=== PATIENT | male | born 1965 | race Hispanic/Latino ===

== ENCOUNTER 2018-05-27 17:34 | Inpatient (IN) | payer BC ==
[2018-05-27] MEDS ORDERED: Azithromycin 500 MG in Sodium Chloride 0.9% 250 ML IVPB STA (20:12)
[2018-05-27] MEDS ORDERED: Sodium Chloride 0.9% 1,000 ML IV STA (20:12)
[2018-05-27] MEDS ORDERED: Sodium Chloride 0.9% 1,000 ML ONE (20:19)
--- NOTE | 2018-05-27 20:21 | C.PDOC ---
History Of Present Illness 52 y/o male presents to the ER for evaluation s/p urgent care visit in which he was diagnosed with pneumonia. His PCP, Dr. Gibbons, advised that he be admitted. The patient reports experiencing SOB and coughing and pain over the L thoracic area especially with cough or deep breath. He denies having an associated fever , trauma, vomiting, chest pain. Patient notes he has not been eating well due to this pain. Also notes he has hemorrhoids which cause him to have bleeding at times. Time Seen by Provider: 05/27/18 20:07 Chief Complaint (Nursing): Medical Clearance History Per: Patient History/Exam Limitations: no limitations Onset/Duration Of Symptoms: Days, Waxing/Waning Reports Recently: Treated By A Physician (at urgent care) Recent travel outside of the [place]: No Past Medical History Reviewed: Historical Data, Nursing Documentation, Vital Signs Vital Signs: Last Vital Signs Temp 98.3 F 05/27/18 20:53 Pulse 97 H 05/27/18 20:53 Resp 18 05/27/18 20:53 BP 139/89 05/27/18 20:53 Pulse Ox 95 05/27/18 20:53 - Medical History PMH: Hypercholesterolemia Surgical History: No Surg Hx Family History: States: Unknown Family Hx - Social History Hx Alcohol Use: No Hx Substance Use: No - Immunization History Hx Tetanus Toxoid Vaccination: No Hx Influenza Vaccination: Yes Hx Pneumococcal Vaccination: No Review Of Systems Except As Marked, All Systems Reviewed And Found Negative. Constitutional: Negative for: Fever Cardiovascular: Negative for: Chest Pain Respiratory: Positive for: Cough, Shortness of Breath Physical Exam - Physical Exam Additional Physical Exam Comments: Constitutional: No acute distress. Head: Normocephalic. Atraumatic. Eyes: PERRL. ENT: Moist mucous membranes. Neck: Supple. Cardiovascular: Regular rate. Radial pulse 2+ bilaterally. Chest: No tenderness. Respiratory: Decreased breath sounds at left base. GI: Soft. Nontender. Nondistended. Rectal: Hemorrhoids, nonbleeding. Guaiac negative. Back: No CVA tenderness. Musculoskeletal: No tenderness or swelling of extremities. Skin: No rash. Neurologic: Alert, no focal deficit. ED Course And Treatment - Laboratory Results Result Diagrams: 05/27/18 20:19 05/27/18 20:19 O2 Sat by Pulse Oximetry: 98 (RA) Pulse Ox Interpretation: Normal Medical Decision Making Medical Decision Making: Impresison: 52 y/o male with pneumonia Plan: --EKG --CMP --Magnesium Stat --Phosphorous Stat --CBC --Blood Culture --Chest X-Ray --Toradol 30 mg IV -- Rocephin 1 gm --Zithromax 500mg --IV Fluids EKG: NSR 96 bpm, no ST/T wave changes. CXR shows opacitification of L lower lung. Dr. Villeda accepts patient to hospitalist service, recommends CT Chest at this time. Disposition - Disposition Disposition: HOSPITALIZED Disposition Time: 22:50 Condition: GUARDED Forms: [employer] (Spanish) - POA Core Measure Indicators: Pneumonia - Clinical Impression Clinical Impression: Pneumonia, Anemia, Hyponatremia - PA / DATA STEWARD / Resident Statement MD/DO has reviewed & agrees with the documentation as recorded. - Scribe Statement The provider has reviewed the documentation as recorded by the Scribe (Cheyenne Gayle) Provider Attestation: All medical record entries made by the Scribe were at my direction and personally dictated by me. I have reviewed the chart and agree that the record accurately reflects my personal performance of the history, physical exam, medical decision making, and the department course for this patient. I have also personally directed, reviewed, and agree with the discharge instructions and disposition.
[2018-05-27 20:24] LABS: BASO % 0.3 % (0.0-2.0); EOS % 0.1 % (0.0-4.0); LYMPH # 0.6 K/uL (1.0-4.3); LYMPH % 4.2 % (20.0-40.0); MEAN CORPUSCULAR HEMOGLOBIN 24.9 pg (27.0-31.0); MEAN PLATELET VOLUME 6.4 fL (7.2-11.7); MONO # 1.3 K/uL (0.0-0.8); MONO % 8.5 % (0.0-10.0); NEUT % 86.9 % (50.0-75.0); NRBC % 0.1 % (0.0-2.0); RBC 3.26 Mil/uL (4.40-5.90); RED CELL DISTRIBUTION WIDTH 17.8 % (11.5-14.5)
[2018-05-27 20:37] LABS: HEMOGLOBIN 8.1 g/dL (12.0-18.0); MEAN CELL VOLUME 77.9 fL (80.0-94.0); PLATELET COUNT 562 K/uL (130-400)
[2018-05-27 20:57] LABS: ANISOCYTOSIS SLIGHT; BANDS 1 % (0-2); EOSINOPHIL 1 % (0-4); HYPOCHROMIC SLIGHT; LYMPHOCYTE 4 % (20-40); MONOCYTE 6 % (0-10); NEUTROPHIL 88 % (50-75); PLATELET ESTIMATE INCREASED (NORMAL); POIKILOCYTOSIS SLIGHT; TOTAL CELLS COUNTED 100
[2018-05-27 20:58] LABS: LARGE PLATELETS PRESENT; MICROCYTOSIS SLIGHT; TARGET CELLS SLIGHT; TEARDROP CELLS SLIGHT
[2018-05-27 22:11] LABS: BLOOD UREA NITROGEN 15 mg/dL (9-20); GFR AFRICAN-AMERICAN > 60; GFR NON-AFRICAN AMERICAN > 60
[2018-05-27 22:12] LABS: ALB/GLOB RATIO 0.8 (1.0-2.1); ALBUMIN 2.7 g/dL (3.5-5.0); ALT/SGPT 47 U/L (21-72); AST/SGOT 45 U/L (17-59); CALCIUM 8.4 mg/dl (8.6-10.4)
--- NOTE | 2018-05-27 22:39 | CP.PCM.HP ---
<Lizzette HawkinsMaria Isabel - Last Filed: 05/28/18 00:10> History of Present Illness - History of Present Illness History of Present Illness: CC: cough HPI: Patient is a 52 y/o M with PMHx of HLD, hypothyroidism, and bipolar disorder who presents today after being told to come to the ER by urgent care for a pleural effusion of the left lung. Patient has been visiting family in [place] and about 1 week ago developed a cough with clear sputum and nasal congestion which he attributed to environmental allergies. Patient had a coughing fit last week during which he felt he hurt his left rib. Patient also admits to diarrhea once daily for the past 4 days. Patient denies any blood in the stool. Patient also complains of 2 weeks of epigastric fullness and pressure. Patient has been eating less due to dental work he is getting. Patient denies any weight loss. Patient decided to go to urgent care today after driving back from [place] (on 05/25 and 05/26) to make sure he did not fracture his rib from his coughing fit last week. In urgent care patient told he had a pleural effusion and to come to the ER. PMD: Dr. Gibbons Allergies: NKDA, environmental Surg: denies Famhx: Dad: HTN, Mom: bladder CA Social: stopped smoking cigarettes 2 years ago (hx of 30 pack years), stopped drinking alcohol 6 years ago (hx of 4 years of alcoholism), stopped using xanax and ambien 6 years ago (hx of abuse) lives alone Present on Admission - Present on Admission Any Indicators Present on Admission: No History of DVT/PE: No History of Uncontrolled Diabetes: No Urinary Catheter: No Decubitus Ulcer Present: No Review of Systems - Constitutional Constitutional: absent: Chills, Fever - EENT Eyes: absent: Blurred Vision - Cardiovascular Cardiovascular: Dyspnea. absent: Chest Pain, Palpitations, Pedal Edema Additional comments: left sided rib pain - Respiratory Respiratory: Cough, Dyspnea - Gastrointestinal Gastrointestinal: Abdominal Pain, Bloating, Diarrhea. absent: Constipation, Hematochezia, Nausea, Vomiting - Genitourinary Genitourinary: absent: Change in Urinary Stream, Difficulty Urinating, Hematuria - Musculoskeletal Musculoskeletal: absent: Numbness, Tingling - Integumentary Integumentary: absent: Rash Past Patient History - Past Social History Smoking Status: Never Smoked - CARDIAC Hx Hypercholesterolemia: Yes - PSYCHIATRIC Hx Substance Use: No - SURGICAL HISTORY Hx Surgeries: No - ANESTHESIA Hx Anesthesia: No Meds Allergies/Adverse Reactions: Allergies Allergy/AdvReac Type Severity Reaction Status Date / Time lentils Allergy Verified 05/27/18 18:02 peanut Allergy Verified 05/27/18 18:02 peas Allergy Verified 05/27/18 18:02 soybean Allergy Verified 05/27/18 18:02 [place] Allergy Uncoded 05/27/18 18:02 Physical Exam - Constitutional Appears: Non-toxic, No Acute Distress - Head Exam Head Exam: ATRAUMATIC, NORMAL INSPECTION, NORMOCEPHALIC - Eye Exam Eye Exam: EOMI, Normal appearance - ENT Exam ENT Exam: Mucous Membranes Moist - Neck Exam Neck exam: Negative for: Tenderness - Respiratory Exam Respiratory Exam: Decreased Breath Sounds (left lung dueñas), NORMAL BREATHING PATTERN - Cardiovascular Exam Cardiovascular Exam: Tachycardia, REGULAR RHYTHM, +S1, +S2 - GI/Abdominal Exam GI & Abdominal Exam: Normal Bowel Sounds, Soft, Tenderness (mild epigastric tenderness). absent: Firm, Guarding - Extremities Exam Extremities exam: Positive for: normal inspection. Negative for: pedal edema, tenderness - Back Exam Back exam: NORMAL INSPECTION - Neurological Exam Neurological exam: Alert, Oriented x3 - Psychiatric Exam Psychiatric exam: Normal Affect, Normal Mood - Skin Skin Exam: Intact, Normal Color, Warm Results - Vital Signs Recent Vital Signs: Last Vital Signs Temp 98.3 F 05/27/18 20:53 Pulse 97 H 05/27/18 20:53 Resp 18 05/27/18 20:53 BP 139/89 05/27/18 20:53 Pulse Ox 95 05/27/18 20:53 - Labs Result Diagrams: 05/27/18 20:19 05/27/18 20:19 Labs: Laboratory Results - last 24 hr 05/27/18 05/27/18 20:19 20:19 WBC 15.0 H RBC 3.26 L Hgb 8.1 L D Hct 25.4 L MCV 77.9 L D MCH 24.9 L MCHC 32.0 L RDW 17.8 H Plt Count 562 H D MPV 6.4 L Neut % (Auto) 86.9 H Lymph % (Auto) 4.2 L [place] % (Auto) 8.5 Eos % (Auto) 0.1 Baso % (Auto) 0.3 Neut # (Auto) 13.0 H Lymph # (Auto) 0.6 L [place] # (Auto) 1.3 H Eos # (Auto) 0.0 Baso # (Auto) 0.0 Neutrophils % (Manual) 88 H Band Neutrophils % 1 Lymphocytes % (Manual) 4 L Monocytes % (Manual) 6 Eosinophils % (Manual) 1 Platelet Estimate Increased H Large Platelets Present Hypochromasia (manual) Slight Poikilocytosis (manual Slight Anisocytosis (manual) Slight Microcytosis (manual) Slight Target Cells Slight Tear Drop Cells Slight Sodium 127 L Potassium 4.3 Chloride 95 L Carbon Dioxide 24 Anion Gap 12 BUN 15 Creatinine 1.0 Est GFR ( Amer) > 60 Est GFR (Non-Af Amer) > 60 Random Glucose 111 H Calcium 8.4 L Phosphorus 3.3 Magnesium 2.0 Total Bilirubin 0.3 AST 45 ALT 47 Alkaline Phosphatase 178 H Total Protein 5.9 L Albumin 2.7 L D Globulin 3.2 Albumin/Globulin Ratio 0.8 L Assessment & Plan - Assessment and Plan (Free Text) Assessment: Pneumonia with large left pleural effusion WBC: 15 azithromycin and ceftriaxone given in ED f/u blood culture f/u Chest CT IR consulted, Dr. Meyers, help appreciated meds: Azithromycin 500mg ivpb daily Ceftriaxone 1gm ivpb daily Anemia HgB 8.1, Hct 25.4 stool occult neg f/u iron studies Hyponatremia Na+ 127 1 L NS given in ED Continue NS at 100cc/hr HLD Fenofibrate 145mg po HS Niacin 1g po daily Lipitor 10mg po daily- NF, give Crestor 5mg po daily Hypothyroidism Synthroid 175mcg daily f/u TSH, free T4 Bipolar Disorder Gabapentin 600mg po TID, 1200mg po HS Seroquel 450mg po HS Lamictal 400mg po daily Hydroxazine 100mg HS (held due to increased QTc prolongation with azithromycin) Prophylaxis hold vte prophylaxis 2/2 anemia pepcid 20mg po daily <Rohit Villeda - Last Filed: 05/28/18 06:25> Results - Vital Signs Recent Vital Signs: Last Vital Signs Temp 98.7 F 05/28/18 01:22 Pulse 98 H 05/28/18 01:22 Resp 20 05/28/18 01:22 BP 142/87 05/28/18 01:22 Pulse Ox 98 05/28/18 01:22 - Labs Result Diagrams: 05/27/18 20:19 05/27/18 20:19 Labs: Laboratory Results - last 24 hr 05/27/18 05/27/18 05/27/18 20:19 20:19 22:41 WBC 15.0 H RBC 3.26 L Hgb 8.1 L D Hct 25.4 L MCV 77.9 L D MCH 24.9 L MCHC 32.0 L RDW 17.8 H Plt Count 562 H D MPV 6.4 L Neut % (Auto) 86.9 H Lymph % (Auto) 4.2 L [place] % (Auto) 8.5 Eos % (Auto) 0.1 Baso % (Auto) 0.3 Neut # (Auto) 13.0 H Lymph # (Auto) 0.6 L [place] # (Auto) 1.3 H Eos # (Auto) 0.0 Baso # (Auto) 0.0 Neutrophils % (Manual) 88 H Band Neutrophils % 1 Lymphocytes % (Manual) 4 L Monocytes % (Manual) 6 Eosinophils % (Manual) 1 Platelet Estimate Increased H Large Platelets Present Hypochromasia (manual) Slight Poikilocytosis (manual Slight Anisocytosis (manual) Slight Microcytosis (manual) Slight Target Cells Slight Tear Drop Cells Slight Sodium 127 L Potassium 4.3 Chloride 95 L Carbon Dioxide 24 Anion Gap 12 BUN 15 Creatinine 1.0 Est GFR ( Amer) > 60 Est GFR (Non-Af Amer) > 60 Random Glucose 111 H Calcium 8.4 L Phosphorus 3.3 Magnesium 2.0 Total Bilirubin 0.3 AST 45 ALT 47 Alkaline Phosphatase 178 H Total Protein 5.9 L Albumin 2.7 L D Globulin 3.2 Albumin/Globulin Ratio 0.8 L Stool Occult Blood Negative Assessment & Plan - Date & Time Date: 05/28/18 (I have seen and examined the patient. I agree with the findings and plan of care as documented by Dr. Hawkins. Patient with pneumonia with pleural effusion. Consult to pulm. Rocephin and azithromycin. Check sputum and blood cultures. Anemia. Not hypotensive. Check stool for OB. Iron studies. IVF NS for hyponatremia. Follow BMP in AM. Monitor for acute changes.) Time: 06:22 Attending/Attestation - Attestation I have personally seen and examined this patient.: Yes I have fully participated in the care of the patient.: Yes I have reviewed all pertinent clinical information: Yes
[2018-05-28] MEDS: Sodium Chloride 0.9% 1,000 ML IV SCH ×2 (00:28→10:01)
[2018-05-28] MEDS: Levothyroxine 175 MCG TAB PO SCH (06:48)
--- NOTE | 2018-05-28 07:45 | CP.PCM.PN ---
<PageTerritaina L - Last Filed: 05/28/18 16:57> Subjective - Date & Time of Evaluation Date of Evaluation: 05/28/18 Time of Evaluation: 07:38 - Subjective Subjective: Resident Progress Note for Hospitalist Service Patient examined at bedside. States that he is still experiencing shortness of breath in addition to back pain. States that he has been attempting to suppress his cough due to the pain that it causes. However, when he does cough he is producing clear yellowish sputum with no signs of blood. Denies headache, dizziness, chest pain, abdominal pain, changes in bowel movements, dysuria. Objective - Vital Signs/Intake and Output Vital Signs (last 24 hours): Temp Pulse Resp BP Pulse Ox 98.7 F 98 H 20 142/87 98 05/28/18 01:22 05/28/18 01:22 05/28/18 01:22 05/28/18 01:22 05/28/18 01:22 - Medications Medications: Current Medications Famotidine (Pepcid) 20 mg PO DAILY [facility] Fenofibrate (Tricor) 145 mg PO QPM [facility] Gabapentin (Neurontin) 600 mg PO TID [facility] Gabapentin (Neurontin) 1,200 mg PO [facility] Last Admin: 05/28/18 00:28 Dose: 1,200 mg Azithromycin 500 mg/ Sodium (Chloride) 250 mls @ 250 mls/hr IVPB DAILY [facility] PRN Reason: Protocol Ceftriaxone Sodium 1 gm/ (Sodium Chloride) 100 mls @ 100 mls/hr IVPB DAILY [facility] PRN Reason: Protocol Sodium Chloride (Sodium Chloride 0.9%) 1,000 mls @ 100 mls/hr IV .Q10H [facility] Last Admin: 05/28/18 00:28 Dose: 100 mls/hr Lamotrigine (Lamictal) 400 mg PO DAILY [facility] Levothyroxine Sodium (Synthroid) 175 mcg PO DAILY@0630 [facility] Last Admin: 05/28/18 06:48 Dose: 175 mcg Niacin (Niacin) 1,000 mg PO DAILY [facility] Pneumococcal Polyvalent Vaccine (Pneumovax 23 Vaccine) 0.5 ml IM .ONCE ONE Stop: 05/30/18 10:01 Quetiapine Fumarate (Seroquel) 450 mg PO HS [facility] Rosuvastatin Calcium (Crestor) 5 mg PO [facility] Last Admin: 08/14/18 00:28 Dose: 5 mg - Labs Labs: 05/27/18 20:19 05/27/18 20:19 - Constitutional Appears: Non-toxic, No Acute Distress - Head Exam Head Exam: ATRAUMATIC, NORMOCEPHALIC - Eye Exam Eye Exam: EOMI, Normal appearance - ENT Exam ENT Exam: Mucous Membranes Moist - Neck Exam Neck Exam: Normal Inspection - Respiratory Exam Respiratory Exam: Decreased Breath Sounds (left lung dueñas), NORMAL BREATHING PATTERN. absent: Rales, Rhonchi, Wheezes, Respiratory Distress - Cardiovascular Exam Cardiovascular Exam: REGULAR RHYTHM, +S1, +S2 - GI/Abdominal Exam GI & Abdominal Exam: Soft, Normal Bowel Sounds. absent: Firm, Rigid, Tenderness - Extremities Exam Extremities Exam: Normal Capillary Refill, Normal Inspection. absent: Tenderness - Back Exam Back Exam: NORMAL INSPECTION - Neurological Exam Neurological Exam: Alert, Awake, Oriented x3 - Psychiatric Exam Psychiatric exam: Normal Affect, Normal Mood - Skin Skin Exam: Dry, Intact, Pallor Assessment and Plan - Assessment and Plan (Free Text) Plan: Pneumonia with large left pleural effusion - Leukocytosis trending down - Azithromycin 500 mg IVPB daily - Rocephin 1 gm IVPB Q12H - f/u blood culture - Chest CT shows moderate to large left pleural effusion with localized effusion at the mid and upper portion of the left chest cavity compressing on the left lung. Foci of gas in mid and lower portion of left pleural effusion and possible abscess formation at left lower pleural space or less likely in left lung lower lobe as described above. Compressive atelectasis of left lung more prominent in left lower lobe. Small ground-glass opacities seen in right lung may represent lung edema or congestion. Splenomegaly. - IR consulted, Dr. Meyers. Appreciate recs. - Patient unable to go for thoracentesis due to INR 2.0. Will repeat labs tomorrow and followup. Anemia - Hgb 8.1, Hct 25.4 - FOBT negative - Iron <10, TIBC 266, % saturation 3.75, ferritin 130.0 - Retic count 0.9 - To obtain records from PMD Hyponatremia- resolved - Na+ 127 on admission. Na+ 137 today. - 1 L NS given in ED HLD - Fenofibrate 145mg po HS - Niacin 1g po daily - Crestor 5mg po daily Hypothyroidism - Synthroid 175mcg daily - TSH 0.75, T4 1.31 Bipolar Disorder - Gabapentin 600mg po TID, 1200mg po HS held - Seroquel 450mg po HS - Lamictal 400mg po daily - Hydroxazine 100mg HS (held due to increased QTc prolongation with azithromycin ) Prophylaxis - Hold vte prophylaxis 2/2 anemia - Pepcid 20mg po daily Kt Page PGY-1 <Dodie Montgomery V - Last Filed: 05/28/18 20:24> Objective - Vital Signs/Intake and Output Vital Signs (last 24 hours): Temp Pulse Resp BP Pulse Ox 98.1 F 96 H 20 133/84 97 05/28/18 16:00 05/28/18 16:00 05/28/18 16:00 05/28/18 16:00 05/28/18 16:00 Intake and Output: 05/28/18 05/29/18 18:59 06:59 Intake Total 250 Balance 250 - Medications Medications: Current Medications Albuterol/Ipratropium (Duoneb 3 Mg/0.5 Mg (3 Ml) Ud) 3 ml INH RQ4 [facility] Benztropine Mesylate (Cogentin) 2 mg PO HS ONE Stop: 05/28/18 22:01 Famotidine (Pepcid) 20 mg PO DAILY [facility] Last Admin: 05/28/18 10:00 Dose: Not Given Fenofibrate (Tricor) 145 mg PO QPM [facility] Gabapentin (Neurontin) 600 mg PO TID [facility] Last Admin: 05/28/18 11:00 Dose: Not Given Gabapentin (Neurontin) 1,200 mg PO HS [facility] Last Admin: 05/28/18 00:28 Dose: 1,200 mg Hydroxyzine HCl (Atarax) 100 mg PO HS [facility] Azithromycin 500 mg/ Sodium (Chloride) 250 mls @ 250 mls/hr IVPB DAILY [facility] PRN Reason: Protocol Last Admin: 05/28/18 12:57 Dose: 250 mls/hr Piperacillin Sod/Tazobactam Sod (Zosyn 3.375 Gm Iv Premix) 3.375 gm in 50 mls @ 100 mls/hr IVPB Q8H [facility] PRN Reason: Protocol Lamotrigine (Lamictal) 400 mg PO DAILY [facility] Last Admin: 05/28/18 11:00 Dose: Not Given Levothyroxine Sodium (Synthroid) 175 mcg PO DAILY@0630 [facility] Last Admin: 05/28/18 06:48 Dose: 175 mcg Montelukast Sodium (Singulair) 10 mg PO HS [facility] Niacin (Niacin) 1,000 mg PO DAILY [facility] Last Admin: 05/28/18 12:00 Dose: Not Given Bnebv-3-Epqg Ethyl Esters (Lovaza) 1 gm PO BID [facility] Quetiapine Fumarate (Seroquel Xr) 450 mg PO HS [facility] Rosuvastatin Calcium (Crestor) 5 mg PO [facility] Last Admin: 05/28/18 00:28 Dose: 5 mg - Labs Labs: 05/28/18 07:59 05/28/18 07:59 PT 22.4 SECONDS (9.7-12.2) H 05/28/18 07:59 INR 2.0 05/28/18 07:59 APTT 34 SECONDS (21-34) 05/28/18 07:59 Attending/Attestation - Attestation I have personally seen and examined this patient.: Yes I have fully participated in the care of the patient.: Yes I have reviewed all pertinent clinical information, including history, physical exam and plan: Yes Notes (Text): Patient seen, examined and case discussed with day-time resident. Patient seen this morning with resident. Patient reports for past 3 weeks he has been having shortness of breathe, associated sputum production. He has attempted mucinex but did not relieve his symptomst. Patient has not tried antibiotics. Patient is a former smoker. 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 I did discussed with him his CT findings and concern for many things including malignancy. Patient moved to telemetry in light of opacification of left lung on CT and for telemetry monitoring. Thoracentesis cancelled today secondary to elevated INR: 2.0. Patient does not have a bleeding history. Patient order for Abdominal US to evaluate liver. Patient ordered for Vitamin K 10mg sub x1 and 1 unit of FFP in preparation for re-attempt of thoracentesis tomorrow with IR. Patient is on antibiotics to cover for community acquired pneumonia. Patient reports chronic history of anemia, about 2 years ago, and reports has had colonoscopy recently. Patient reports significant psychiatric history of bipolar disorder. I spoke with the patient obtain consent to give FFP, risks and ebenfits described Assessment/Plan 1) Pneumonia with large left pleural effusion Assessment/Plan * monitor on telemetry * IR consult for thoracentesis * Pulmonary (Dr. Jaquez) on consult-->help appreciated * CT Chest (05/28/18): moderate to large left pleural effusion with localized effusion at mid and upper portion of the left chest cavity compressing on the left lung. Foci of gas in the mid and lower portion of the left pleural effusion and possible abscess formation at th left lower pleural space or less likely in the left lung lower lobe. Compressive atelectasis of the left lung more prominent in the left lung lower lobe. Small ground glass opacities in the right lung may represent lung edema or congestion. Splenomegaly. * Thoracentesis cancelled secondary to elevated INR * Ordered for Vitamin K 10mg subq X1 * FFP 1 unit tonight * Reattempt tomorrow 05/29/18 * negative legionella, pending mycoplasma pneumonia IgM * Azithromycin 500mg IVPB daily (active since 05/27/18) * Zosyn 3.375 IVPB Q8H (active since 05/28/18) * Rocephin dc switched for Zosyn * NPO for thoracentesis * IV fluids d/c * Duonebs PRN shortness of breathe * Advair 500/50 1 puff inhaled Q12H (Patient takes Symbicort as outpatient not available on hospital formulary) 2) Chronic Anemia Assessment/Plan * HgB 8.1 * Reticulocyte index: 0.37-->hypoproliferation of reticulocytes * Iron: <10 * TIBC: 266 * Ferritin: 130 * pending B12 and folate * Patient reports he has completed colonoscopy in the past * Patient reports has not had bone marrow biopsy or any further workup * Stool occult blood Negative 3) Hyponatremia Assessment/Plan * d/c IV fluids * sodium normalized 4) Lipid Disorder Assessment/Plan * Fenofibrate 145mg po HS * Niacin 1g po daily * Lipid panel in the AM 5) Hypothyroidism Assessment/Plan * Synthroid 175mcg PO qAM * within normal 6) History of Bipolar Disorder * Reviewed medications with patient: * Patient sparingly takes Gabapentin 100mg PO Q4 * Seroquel XR 450mg po HS * Lamictal 400mg po daily * Hydroxazine 100mg HS (held due to increased QTc prolongation with azithromycin) 7) Asthma Assessment/Plan * Patient takes Symbicort as outpatient * Patient has not formally seen a lung doctor * Patient reports significant smoking history 8) Elevated INR Assessment/Plan * Vitamin K 10mg subq X1, FFP X1 unit tonight; f/u INR tomorrow * Abdominal US check liver given elevated INR 9) Smoking History Assessment/Plan * Former smoker * Counselled cessation * Nicoderm patch daily 10) Leukocytosis Assessment/Plan * Blood culture (05/27/18): f/u * Sputum culture (05/27/18) 11) Prophylaxis * Chemical anticoagulation held secondary to thoracentesis and elevated INR * Protonix 40mg PO daily Disposition: To be NPO after midnight for re-attempt thoracentesis tomorrow; fluid studies are orderered. Patient is on IV abx to cover for pneumonia. Pending thoracentesis tomorrow.
[2018-05-28 08:15] LABS: BASO % 0.3 % (0.0-2.0); HEMOGLOBIN 8.3 g/dL (12.0-18.0); LYMPH # 0.6 K/uL (1.0-4.3); MEAN CELL VOLUME 77.4 fL (80.0-94.0); MEAN CORPUSCULAR HEMOGLOBIN 24.8 pg (27.0-31.0); MEAN PLATELET VOLUME 6.8 fL (7.2-11.7); MONO # 0.9 K/uL (0.0-0.8); MONO % 6.7 % (0.0-10.0); NEUT # 12.3 K/uL (1.8-7.0); PLATELET COUNT 656 K/uL (130-400); RBC 3.37 Mil/uL (4.40-5.90); RED CELL DISTRIBUTION WIDTH 18.2 % (11.5-14.5); WHITE BLOOD COUNT 13.8 K/uL (4.8-10.8)
[2018-05-28 08:32] LABS: IRON < 10 ug/dL (49-181)
[2018-05-28 08:35] LABS: ALB/GLOB RATIO 0.9 (1.0-2.1); ALBUMIN 2.8 g/dL (3.5-5.0); ALT/SGPT 64 U/L (21-72); AST/SGOT 70 U/L (17-59); BLOOD UREA NITROGEN 10 mg/dL (9-20); CALCIUM 8.3 mg/dl (8.6-10.4); GFR AFRICAN-AMERICAN > 60; GFR NON-AFRICAN AMERICAN > 60; PROTHROMBIN TIME 22.4 SECONDS (9.7-12.2)
[2018-05-28 08:41] LABS: TOTAL IRON BINDING CAPACITY 266 ug/dL (250-450)
[2018-05-28 08:43] LABS: % IRON SATURATION 3.75 (20-55)
[2018-05-28 09:26] LABS: ANISOCYTOSIS SLIGHT; LYMPHOCYTE 3 % (20-40); MONOCYTE 11 % (0-10); NEUTROPHIL 86 % (50-75); PLATELET ESTIMATE INCREASED (NORMAL); POIKILOCYTOSIS SLIGHT; TOTAL CELLS COUNTED 100
[2018-05-28 09:27] LABS: HYPOCHROMIC SLIGHT; OVALOCYTES SLIGHT
[2018-05-28 09:28] LABS: LARGE PLATELETS PRESENT; TEARDROP CELLS SLIGHT; TOXIC GRANULATION PRESENT
[2018-05-28] MEDS ORDERED: Phytonadione 10 mg/ml Inj (Adult) SC STA ×2 (09:30→14:19)
--- NOTE | 2018-05-28 10:24 | RAD ---
Chest x-ray two views History: Shortness of breath. Comparison: None available. Findings: Large loculated left pleural effusion with prominent opacification in the left mid to lower lung zone. Correlation with chest CT may be helpful if clinically indicated. Heart size within normal limits. Right hilar prominence. Gas distention of bowel in the upper abdomen. Impression: Large loculated left pleural effusion with prominent opacification in the left mid to lower lung zone. Correlation with chest CT may be helpful if clinically indicated. Heart size within normal limits. Right hilar prominence. Gas distention of bowel in the upper abdomen.
--- NOTE | 2018-05-28 12:00 | CARD ---
APPROVED REPORT Date of service: 05/27/2018 EKG Measurement Heart [id number] <Conclusion> Normal sinus rhythm Normal ECG
[2018-05-28 12:42] LABS: LEGIONELLA AG URINE NEGATIVE (NEGATIVE)
[2018-05-28] MEDS: Azithromycin 500 MG in Sodium Chloride 0.9% 250 ML IVPB SCH (12:57)
--- NOTE | 2018-05-28 13:11 | US ---
Abdominal ultrasound History: Transaminitis. Comparison: None available. Technique: Real-time sonography was performed through the abdomen. Findings: Liver: 19.4 centimeters in length. Increased echogenicity of the hepatic parenchymal cortex suggestive for fatty infiltration versus hepatic parenchymal disease. Clinical correlation. Gallbladder: No calculi or sludge. Normal wall thickness of 2.8 millimeters. Negative sonographic Wilson's sign. Common bile duct measures 3.9 millimeters, within normal limits. Limited visualization of the pancreas. Spleen is prominent measuring 13.1 centimeters in length. Limited visualization of the aorta and IVC. Right kidney: 12.6 x 4.2 x 5.3 centimeters. No calculi or hydronephrosis. Left kidney: 13.3 x 5.7 x 5.6 centimeters. No calculi or hydronephrosis. Impression: Increased echogenicity of the hepatic parenchymal cortex suggestive for fatty infiltration versus hepatic parenchymal disease. Clinical correlation. Prominent liver and spleen as described above. Limited visualization of the pancreas.
--- NOTE | 2018-05-28 13:15 | CT ---
Date of service: 05/27/2018 PROCEDURE: CT Chest without contrast HISTORY: lung opacification COMPARISON: No prior similar study available for comparison. TECHNIQUE: Contiguous axial images were obtained through the chest without intravenous contrast enhancement. Sagittal and coronal reconstructions were performed. Radiation dose (DLP): 349.73 mGy-cm. This CT exam was performed using one or more of the following dose reduction techniques: Automated exposure control, adjustment of the mA and/or kV according to patient size, and/or use of iterative reconstruction technique. FINDINGS: LUNGS: There is a compressive atelectasis of the left lung especially the lower lobe. There are foci of ground-glass opacity seen at the right lung upper lobe may represent mild focal pulmonary congestion or edema. There is possible pulmonary abscess or pleural empyema with abscess formation at the left lung lower lobe demonstrate thick dobbins and surrounding with pleural effusion with central gas collection, measures approximately 6.8 centimeter in the transverse diameter and 4.8 in the AP diameter. MEDIASTINUM: Unremarkable thoracic aorta. No aneurysm. Normal sized heart. Main pulmonary artery unremarkable. No vascular congestion. Mildly enlarged left hilar lymph nodes noted. PLEURA: There is moderate to large left pleural effusion. Localized pleural effusion at the mid and upper portion of the left chest is also noted. There are foci of air seen at the lower portion of the left chest pleural cavity and possible either lung or pleural abscess and empyema. BONES: No fracture. No destructive lesion. UPPER ABDOMEN: The scans through the upper abdomen demonstrate splenomegaly. OTHER FINDINGS: None. IMPRESSION: Moderate to large left pleural effusion with localized effusion at the mid and upper portion of the left chest cavity compressing on the left lung. Foci of gas in the mid and lower portion of the left pleural effusion and possible abscess formation at the left lower pleural space or less likely in the left lung lower lobe as described above. Compressive atelectasis of the left lung more prominent in the left lower lobe. Small ground-glass opacities seen in the right lung may represent lung edema or congestion. Splenomegaly. Preliminary report was submitted by [facility].
--- NOTE | 2018-05-28 17:51 | CP.PCM.CON ---
History of Present Illness - History of Present Illness History of Present Illness: Reason for consultation: complaining of cough and weight loss 52-year-old male with history of hypothyroidism and bipolar disorder presented to emergency room complaining of cough and left-sided pleural effusion. Patient states that while visiting [facility] last month he developed cough, nasal congestion, diarrhea. CAT scan of the chest consistent with loculated pleural effusion And cabinetry mass Allergies: NKDA, environmental Surg: denies Famhx: Dad: HTN, Mom: bladder CA Social: stopped smoking cigarettes 2 years ago (hx of 30 pack years), stopped drinking alcohol 6 years ago (hx of 4 years of alcoholism), stopped using xanax and ambien 6 years ago (hx of abuse) lives alone Review of Systems - Review of Systems All systems: reviewed and no additional remarkable complaints except ( complaining of cough and weight loss) Past Patient History - Past Medical History & Family History Past Medical History?: Yes - Past Social History Smoking Status: Former Smoker - CARDIAC Hx Cardiac Disorders: Yes Hx Hypercholesterolemia: Yes - PULMONARY Hx Respiratory Disorders: No - NEUROLOGICAL Hx Neurological Disorder: No - HEENT Hx HEENT Problems: No - RENAL Hx Chronic Kidney Disease: No - ENDOCRINE/METABOLIC Hx Endocrine Disorders: Yes Hx Hypothyroidism: Yes - HEMATOLOGICAL/ONCOLOGICAL Hx Blood Disorders: No - INTEGUMENTARY Hx Dermatological Problems: No - MUSCULOSKELETAL/RHEUMATOLOGICAL Hx Falls: No - GASTROINTESTINAL Hx Gastrointestinal Disorders: No - GENITOURINARY/GYNECOLOGICAL Hx Genitourinary Disorders: No - PSYCHIATRIC Hx Substance Use: No - SURGICAL HISTORY Hx Surgeries: No - ANESTHESIA Hx Anesthesia: No Hx Anesthesia Reactions: No Hx Malignant Hyperthermia: No Has any member of the family had a problem w/ anesthesia?: No Meds Allergies/Adverse Reactions: Allergies Allergy/AdvReac Type Severity Reaction Status Date / Time lentils Allergy Verified 05/27/18 18:02 peanut Allergy Verified 05/27/18 18:02 peas Allergy Verified 05/27/18 18:02 soybean Allergy Verified 05/27/18 18:02 [place] Allergy Uncoded 05/27/18 18:02 - Medications Medications: Current Medications Albuterol/Ipratropium (Duoneb 3 Mg/0.5 Mg (3 Ml) Ud) 3 ml INH RQ4 [facility] Benztropine Mesylate (Cogentin) 2 mg PO HS ONE Stop: 05/28/18 22:01 Famotidine (Pepcid) 20 mg PO DAILY [facility] Last Admin: 05/28/18 10:00 Dose: Not Given Fenofibrate (Tricor) 145 mg PO QPM [facility] Gabapentin (Neurontin) 600 mg PO TID [facility] Last Admin: 05/28/18 11:00 Dose: Not Given Gabapentin (Neurontin) 1,200 mg PO HS [facility] Last Admin: 05/28/18 00:28 Dose: 1,200 mg Hydroxyzine HCl (Atarax) 100 mg PO HS [facility] Azithromycin 500 mg/ Sodium (Chloride) 250 mls @ 250 mls/hr IVPB DAILY [facility] PRN Reason: Protocol Last Admin: 05/28/18 12:57 Dose: 250 mls/hr Ceftriaxone Sodium 1 gm/ (Sodium Chloride) 100 mls @ 100 mls/hr IVPB Q12H [facility] PRN Reason: Protocol Lamotrigine (Lamictal) 400 mg PO DAILY [facility] Last Admin: 05/28/18 11:00 Dose: Not Given Levothyroxine Sodium (Synthroid) 175 mcg PO DAILY@0630 [facility] Last Admin: 05/28/18 06:48 Dose: 175 mcg Montelukast Sodium (Singulair) 10 mg PO HS [facility] Niacin (Niacin) 1,000 mg PO DAILY [facility] Last Admin: 05/28/18 12:00 Dose: Not Given [id number]-3-Hzkx Ethyl Esters (Lovaza) 1 gm PO BID [facility] Quetiapine Fumarate (Seroquel Xr) 450 mg PO HS [facility] Rosuvastatin Calcium (Crestor) 5 mg PO HS [facility] Last Admin: 05/28/18 00:28 Dose: 5 mg Fluticasone/Salmeterol (Advair Diskus 500/50) 1 puff INH RQ12 [facility] Physical Exam - Head Exam Head Exam: ATRAUMATIC, NORMOCEPHALIC - ENT Exam ENT Exam: Mucous Membranes Moist - Respiratory Exam Respiratory Exam: Decreased Breath Sounds Results - Vital Signs Recent Vital Signs: Last Vital Signs Temp 98.1 F 05/28/18 16:00 Pulse 96 H 05/28/18 16:00 Resp 20 05/28/18 16:00 BP 133/84 05/28/18 16:00 Pulse Ox 97 05/28/18 16:00 - Labs Result Diagrams: 05/29/18 08:20 05/29/18 08:20 Labs: Laboratory Results - last 24 hr 08/13/18 08/13/18 08/13/18 20:19 20:19 22:41 WBC 15.0 H RBC 3.26 L Hgb 8.1 L D Hct 25.4 L MCV 77.9 L D MCH 24.9 L MCHC 32.0 L RDW 17.8 H Plt Count 562 H D MPV 6.4 L Neut % (Auto) 86.9 H Lymph % (Auto) 4.2 L [place] % (Auto) 8.5 Eos % (Auto) 0.1 Baso % (Auto) 0.3 Neut # (Auto) 13.0 H Lymph # (Auto) 0.6 L [place] # (Auto) 1.3 H Eos # (Auto) 0.0 Baso # (Auto) 0.0 Neutrophils % (Manual) 88 H Band Neutrophils % 1 Lymphocytes % (Manual) 4 L Monocytes % (Manual) 6 Eosinophils % (Manual) 1 Toxic Granulation Platelet Estimate Increased H Large Platelets Present Hypochromasia (manual) Slight Poikilocytosis (manual Slight Anisocytosis (manual) Slight Microcytosis (manual) Slight Target Cells Slight Tear Drop Cells Slight Ovalocytes Retic Count PT INR APTT Sodium 127 L Potassium 4.3 Chloride 95 L Carbon Dioxide 24 Anion Gap 12 BUN 15 Creatinine 1.0 Est GFR ( Amer) > 60 Est GFR (Non-Af Amer) > 60 Random Glucose 111 H Calcium 8.4 L Phosphorus 3.3 Magnesium 2.0 Iron TIBC % Saturation Ferritin Total Bilirubin 0.3 AST 45 ALT 47 Alkaline Phosphatase 178 H Total Protein 5.9 L Albumin 2.7 L D Globulin 3.2 Albumin/Globulin Ratio 0.8 L Free T4 TSH 3rd Generation Stool Occult Blood Negative Ur L.pneumophila Ag 05/28/18 05/28/18 05/28/18 07:59 07:59 07:59 WBC 13.8 H RBC 3.37 L Hgb 8.3 L Hct 26.1 L MCV 77.4 L MCH 24.8 L MCHC 32.0 L RDW 18.2 H Plt Count 656 H MPV 6.8 L Neut % (Auto) 89.0 H Lymph % (Auto) 4.0 L [place] % (Auto) 6.7 Eos % (Auto) 0.0 Baso % (Auto) 0.3 Neut # (Auto) 12.3 H Lymph # (Auto) 0.6 L [place] # (Auto) 0.9 H Eos # (Auto) 0.0 Baso # (Auto) 0.0 Neutrophils % (Manual) 86 H Band Neutrophils % Lymphocytes % (Manual) 3 L Monocytes % (Manual) 11 H Eosinophils % (Manual) Toxic Granulation Present Platelet Estimate Increased H Large Platelets Present Hypochromasia (manual) Slight Poikilocytosis (manual Slight Anisocytosis (manual) Slight Microcytosis (manual) Target Cells Tear Drop Cells Slight Ovalocytes Slight Retic Count 0.9 PT INR APTT Sodium 137 Potassium 4.0 Chloride 101 Carbon Dioxide 25 Anion Gap 15 BUN 10 Creatinine 0.7 L Est GFR ( Amer) > 60 Est GFR (Non-Af Amer) > 60 Random Glucose 112 H Calcium 8.3 L Phosphorus 2.6 Magnesium 1.9 Iron TIBC % Saturation Ferritin 130.0 Total Bilirubin 0.3 AST 70 H D ALT 64 Alkaline Phosphatase 159 H Total Protein 6.1 L Albumin 2.8 L Globulin 3.3 Albumin/Globulin Ratio 0.9 L Free T4 TSH 3rd Generation 0.75 Stool Occult Blood Ur L.pneumophila Ag 05/28/18 05/28/18 05/28/18 07:59 07:59 07:59 WBC RBC Hgb Hct MCV MCH MCHC RDW Plt Count MPV Neut % (Auto) Lymph % (Auto) [place] % (Auto) Eos % (Auto) Baso % (Auto) Neut # (Auto) Lymph # (Auto) [place] # (Auto) Eos # (Auto) Baso # (Auto) Neutrophils % (Manual) Band Neutrophils % Lymphocytes % (Manual) Monocytes % (Manual) Eosinophils % (Manual) Toxic Granulation Platelet Estimate Large Platelets Hypochromasia (manual) Poikilocytosis (manual Anisocytosis (manual) Microcytosis (manual) Target Cells Tear Drop Cells Ovalocytes Retic Count PT 22.4 H INR 2.0 APTT 34 Sodium Potassium Chloride Carbon Dioxide Anion Gap BUN Creatinine Est GFR ( Amer) Est GFR (Non-Af Amer) Random Glucose Calcium Phosphorus Magnesium Iron < 10 L TIBC 266 % Saturation 3.75 L Ferritin Total Bilirubin AST ALT Alkaline Phosphatase Total Protein Albumin Globulin Albumin/Globulin Ratio Free T4 1.31 TSH 3rd Generation Stool Occult Blood Ur L.pneumophila Ag 05/28/18 11:00 WBC RBC Hgb Hct MCV MCH MCHC RDW Plt Count MPV Neut % (Auto) Lymph % (Auto) [place] % (Auto) Eos % (Auto) Baso % (Auto) Neut # (Auto) Lymph # (Auto) [place] # (Auto) Eos # (Auto) Baso # (Auto) Neutrophils % (Manual) Band Neutrophils % Lymphocytes % (Manual) Monocytes % (Manual) Eosinophils % (Manual) Toxic Granulation Platelet Estimate Large Platelets Hypochromasia (manual) Poikilocytosis (manual Anisocytosis (manual) Microcytosis (manual) Target Cells Tear Drop Cells Ovalocytes Retic Count PT INR APTT Sodium Potassium Chloride Carbon Dioxide Anion Gap BUN Creatinine Est GFR ( Amer) Est GFR (Non-Af Amer) Random Glucose Calcium Phosphorus Magnesium Iron TIBC % Saturation Ferritin Total Bilirubin AST ALT Alkaline Phosphatase Total Protein Albumin Globulin Albumin/Globulin Ratio Free T4 TSH 3rd Generation Stool Occult Blood Ur L.pneumophila Ag Negative Assessment & Plan (1) Pleural effusion Status: Acute Comment: possible loculated pleural effusion that cavitary mass. thoracentesis. Thoracic consult. Continue antibiotics (2) Cavitary lesion of lung Status: Acute (3) Pneumonia Status: Acute
[2018-05-28] MEDS: Albuterol-Ipratrop 3 mg / 0.5 (3 ml) UD INH SCH (19:50)
[2018-05-28] MEDS ORDERED: Fluticasone-Salmeterol 500-50mcg Diskus INH SCH (20:00)
[2018-05-28] MEDS: Omega-3-Acid Ethyl Esters 1 GM Cap PO SCH (20:41)
[2018-05-28] MEDS: Piperacill/Tazo 3.375gm in Dex 3.375 GM/50 ML BAG IVPB SCH (20:45)
[2018-05-28] MEDS ORDERED: QUEtiapine 50 mg XR Tab PO SCH (22:00)
[2018-05-28] MEDS: QUEtiapine 150 mg XR Tab PO SCH (22:04)
[2018-05-29] MEDS: Albuterol-Ipratrop 3 mg / 0.5 (3 ml) UD INH SCH ×6 (00:48→20:15)
[2018-05-29] MEDS: Piperacill/Tazo 3.375gm in Dex 3.375 GM/50 ML BAG IVPB SCH ×3 (04:35→18:00)
--- NOTE | 2018-05-29 06:46 | CP.PCM.PN ---
<Kt Page L - Last Filed: 05/29/18 16:20> Subjective - Date & Time of Evaluation Date of Evaluation: 05/29/18 Time of Evaluation: 06:46 - Subjective Subjective: Resident Progress Note for Hospitalist Service Patient examined at bedside. Patient is s/p thoracentesis attempt which was not completed as there was no fluid to drain. He states that he is feeling better today and that his shortness of breath is improving. He admits to have two watery bowel movements in the past day. Denies headache, dizziness, chest pain, abdominal pain, dysuria. Objective - Vital Signs/Intake and Output Vital Signs (last 24 hours): Temp Pulse Resp BP Pulse Ox 98.9 F 87 20 133/87 97 05/29/18 04:30 05/29/18 04:30 05/29/18 04:30 05/29/18 04:30 05/29/18 04:30 Intake and Output: 05/28/18 05/29/18 18:59 06:59 Intake Total 250 Balance 250 - Medications Medications: Current Medications Albuterol/Ipratropium (Duoneb 3 Mg/0.5 Mg (3 Ml) Ud) 3 ml INH RQ4 [facility] Last Admin: 05/29/18 04:47 Dose: Not Given Famotidine (Pepcid) 20 mg PO DAILY [facility] Last Admin: 05/28/18 10:00 Dose: Not Given Fenofibrate (Tricor) 145 mg PO QPM [facility] Last Admin: 05/28/18 20:42 Dose: Not Given Azithromycin 500 mg/ Sodium (Chloride) 250 mls @ 250 mls/hr IVPB DAILY [facility] PRN Reason: Protocol Last Admin: 05/28/18 12:57 Dose: 250 mls/hr Piperacillin Sod/Tazobactam Sod (Zosyn 3.375 Gm Iv Premix) 3.375 gm in 50 mls @ 100 mls/hr IVPB Q8H [facility] PRN Reason: Protocol Last Admin: 05/29/18 04:35 Dose: 100 mls/hr Lamotrigine (Lamictal) 400 mg PO DAILY [facility] Last Admin: 05/28/18 11:00 Dose: Not Given Levothyroxine Sodium (Synthroid) 175 mcg PO DAILY@0630 [facility] Last Admin: 05/28/18 06:48 Dose: 175 mcg Montelukast Sodium (Singulair) 10 mg PO [facility] Last Admin: 05/28/18 22:04 Dose: Not Given Niacin (Niacin) 1,000 mg PO DAILY [facility] Last Admin: 05/28/18 12:00 Dose: Not Given Mmvzq-6-Ocig Ethyl Esters (Lovaza) 1 gm PO BID [facility] Last Admin: 05/28/18 20:41 Dose: Not Given Quetiapine Fumarate (Seroquel Xr) 450 mg PO [facility] Last Admin: 05/28/18 22:04 Dose: Not Given Rosuvastatin Calcium (Crestor) 5 mg PO [facility] Last Admin: 05/28/18 22:03 Dose: Not Given - Labs Labs: 05/28/18 07:59 05/28/18 07:59 PT 22.4 SECONDS (9.7-12.2) H 05/28/18 07:59 INR 2.0 05/28/18 07:59 APTT 34 SECONDS (21-34) 05/28/18 07:59 - Additional Findings Additional findings: - Constitutional Appears: Non-toxic, No Acute Distress - Head Exam Head Exam: ATRAUMATIC, NORMOCEPHALIC - Eye Exam Eye Exam: EOMI, Normal appearance - ENT Exam ENT Exam: Mucous Membranes Moist - Neck Exam Neck Exam: Normal Inspection - Respiratory Exam Respiratory Exam: Decreased Breath Sounds (improved from yesterday), NORMAL BREATHING PATTERN. absent: Rales, Rhonchi, Wheezes, Respiratory Distress - Cardiovascular Exam Cardiovascular Exam: REGULAR RHYTHM, +S1, +S2 - GI/Abdominal Exam GI & Abdominal Exam: Soft, Normal Bowel Sounds. absent: Firm, Rigid, Tenderness - Extremities Exam Extremities Exam: Normal Capillary Refill, Normal Inspection. absent: Tenderness - Back Exam Back Exam: NORMAL INSPECTION - Neurological Exam Neurological Exam: Alert, Awake, Oriented x3 - Psychiatric Exam Psychiatric exam: Normal Affect, Normal Mood - Skin Skin Exam: Dry, Intact, Pallor Assessment and Plan - Assessment and Plan (Free Text) Plan: Pneumonia with large left pleural effusion - Leukocytosis trending down - Azithromycin 500 mg IVPB daily - Zosyn 3.375 gm IVPB Q8H - f/u blood culture - Chest CT shows moderate to large left pleural effusion with localized effusion at the mid and upper portion of the left chest cavity compressing on the left lung. Foci of gas in mid and lower portion of left pleural effusion and possible abscess formation at left lower pleural space or less likely in left lung lower lobe as described above. Compressive atelectasis of left lung more prominent in left lower lobe. Small ground-glass opacities seen in right lung may represent lung edema or congestion. Splenomegaly. - IR consulted, Dr. Meyers. Recs appreciated. - Thoracentesis attempted, however was cancelled as fluid was unable to be drained. - Surgery consulted. Appreciate recs. Transaminitis - Followup hepatitis panel, HIV antibodies Diarrhea - Followup stool cultures, fecal leukocytes Anemia - Hgb 8.1, Hct 25.4 - FOBT negative - Iron <10, TIBC 266, % saturation 3.75, ferritin 130.0 - Retic count 0.9 - B12 523, folate 13.3 Hyponatremia- resolved - Continue to monitor HLD - Fenofibrate 145mg po HS - Niacin 1g po daily Hypothyroidism - Synthroid 175mcg daily - TSH 0.75, T4 1.31 Bipolar Disorder - Gabapentin 600mg po TID, 1200mg po HS held - Seroquel 450mg po HS - Lamictal 400mg po daily - Hydroxazine 100mg HS (held due to increased QTc prolongation with azithromycin ) Prophylaxis - Hold vte prophylaxis 2/2 anemia - Pepcid 20mg po daily Kt Page PGY-1 <Kain Justice - Last Filed: 05/29/18 16:44> Objective - Vital Signs/Intake and Output Vital Signs (last 24 hours): Temp Pulse Resp BP Pulse Ox 98.4 F 91 H 20 129/78 100 05/29/18 15:00 05/29/18 15:00 05/29/18 15:00 05/29/18 15:00 05/29/18 15:00 Intake and Output: 05/29/18 05/29/18 06:59 18:59 Intake Total 435 600 Balance 435 600 - Medications Medications: Current Medications Albuterol/Ipratropium (Duoneb 3 Mg/0.5 Mg (3 Ml) Ud) 3 ml INH RQ4 [facility] Last Admin: 05/29/18 15:47 Dose: 3 ml Famotidine (Pepcid) 20 mg PO DAILY [facility] Last Admin: 05/29/18 09:32 Dose: 20 mg Fenofibrate (Tricor) 145 mg PO QPM [facility] Last Admin: 05/28/18 20:42 Dose: Not Given Azithromycin 500 mg/ Sodium (Chloride) 250 mls @ 250 mls/hr IVPB DAILY [facility] PRN Reason: Protocol Last Admin: 05/29/18 09:38 Dose: 250 mls/hr Piperacillin Sod/Tazobactam Sod (Zosyn 3.375 Gm Iv Premix) 3.375 gm in 50 mls @ 100 mls/hr IVPB Q8H [facility] PRN Reason: Protocol Last Admin: 05/29/18 15:03 Dose: 100 mls/hr Lamotrigine (Lamictal) 400 mg PO DAILY [facility] Last Admin: 05/29/18 09:32 Dose: 400 mg Levothyroxine Sodium (Synthroid) 175 mcg PO DAILY@0630 [facility] Last Admin: 05/29/18 06:54 Dose: Not Given Montelukast Sodium (Singulair) 10 mg PO HS [facility] Last Admin: 05/28/18 22:04 Dose: Not Given Niacin (Niacin) 1,000 mg PO DAILY [facility] Last Admin: 05/29/18 09:33 Dose: 1,000 mg Mntbi-4-Hygu Ethyl Esters (Lovaza) 1 gm PO BID [facility] Last Admin: 05/29/18 09:32 Dose: 1 gm Quetiapine Fumarate (Seroquel Xr) 450 mg PO HS [facility] Last Admin: 05/28/18 22:04 Dose: Not Given - Labs Labs: 05/29/18 08:20 05/29/18 08:20 PT 16.2 SECONDS (9.7-12.2) H D 05/29/18 08:20 INR 1.5 D 05/29/18 08:20 APTT 31 SECONDS (21-34) 05/29/18 08:20 Attending/Attestation - Attestation I have personally seen and examined this patient.: Yes I have fully participated in the care of the patient.: Yes I have reviewed all pertinent clinical information, including history, physical exam and plan: Yes Notes (Text): 05/29/18 16:29 Patient was seen and examined at 10:15 AM 05/29/18 656 A Care of this patient was gone over in detail with resident Dr. Page Also on ROS: 2 watery nonbloody bowel movements in the past 24 hours NO cough/SOB/dyspnea/wheezing NO other complaints upon FULL ROS Also on Exam: Significanly decreased breath sounds over entire left lung auscultatory field Patient is in no respiratory distress, speaking in full sentences Assessments: 1). Left Lung Cavitary Lesion with Large Left Pleural Effusion with possible underlying Pneumonia 2). Anemia of Chronic Disease 3). Hyponatremia 4). HLD 5). Hypothyroidism 6). Bipolar Disorder 7). Elevated LFTs Urine Legionella Ag is negative Mycoplasma IgM is negative Blood culture 05/27/18 is negative to date IR attempted to drain left pleural effusion but U/S did not show any evidence of drainable fluids therefor not attempted. Spoke with Type Photography Supervisor Dr. Jaquez and he agrees that we should get the opinion of CardioThoracic Surgeon Dr. Palacio concerning the large left pleural effusion as evidenced on CT. Consult placed for Dr. Hughes and I notified Assistant Program Manager via beeper [phone]. Elevated LFTs could be secondary to the Niacin/Crestor or the fatty infiltration of the liver vs hepatic parenchymal disease (as evidenced by the U/ S Abdomen). If the LFTs continue to rise then discontinue the Niacin/Crestor F/U Hepatitis Panel and HIV 1&2 Anemia could be secondary to chronic disease as well as medication (Niacin, Lamictal). Continue to monitor HgB/Hct F/U Stool culture and luekocytes sent for the 2 watery bowel movements Kain Justice D.O.
[2018-05-29] MEDS: Levothyroxine 175 MCG TAB PO SCH (06:54)
[2018-05-29 08:47] LABS: BASO % 0.1 % (0.0-2.0); EOS % 0.2 % (0.0-4.0); HEMOGLOBIN 7.7 g/dL (12.0-18.0); LYMPH # 0.7 K/uL (1.0-4.3); LYMPH % 5.1 % (20.0-40.0); MEAN CELL VOLUME 77.2 fL (80.0-94.0); MEAN CORPUSCULAR HEMOGLOBIN 25.2 pg (27.0-31.0); MEAN CORPUSCULAR HGB CONC 32.6 g/dL (33.0-37.0); MEAN PLATELET VOLUME 6.7 fL (7.2-11.7); MONO # 1.1 K/uL (0.0-0.8); MONO % 7.8 % (0.0-10.0); NEUT # 12.5 K/uL (1.8-7.0); NEUT % 86.8 % (50.0-75.0); PLATELET COUNT 636 K/uL (130-400); RBC 3.05 Mil/uL (4.40-5.90); RED CELL DISTRIBUTION WIDTH 17.8 % (11.5-14.5); WHITE BLOOD COUNT 14.4 K/uL (4.8-10.8)
[2018-05-29 08:49] LABS: ALB/GLOB RATIO 0.9 (1.0-2.1); ALBUMIN 2.8 g/dL (3.5-5.0); ALT/SGPT 148 U/L (21-72); AST/SGOT 211 U/L (17-59); BLOOD UREA NITROGEN 9 mg/dL (9-20); CALCIUM 8.3 mg/dl (8.6-10.4); GFR AFRICAN-AMERICAN > 60; GFR NON-AFRICAN AMERICAN > 60; HDL CHOLESTEROL 12 mg/dL (30-70)
[2018-05-29 08:54] LABS: INR 1.5; PROTHROMBIN TIME 16.2 SECONDS (9.7-12.2)
[2018-05-29 08:58] LABS: LDL CHOLESTEROL 32 mg/dL (0-129)
[2018-05-29 09:17] LABS: LYMPHOCYTE 8 % (20-40); MONOCYTE 1 % (0-10); NEUTROPHIL 91 % (50-75); PLATELET ESTIMATE INCREASED (NORMAL); TOTAL CELLS COUNTED 100
[2018-05-29 09:18] LABS: ANISOCYTOSIS SLIGHT; HYPOCHROMIC MODERATE; MICROCYTOSIS SLIGHT; OVALOCYTES SLIGHT; POIKILOCYTOSIS SLIGHT; TARGET CELLS SLIGHT
[2018-05-29 09:19] LABS: LARGE PLATELETS PRESENT
[2018-05-29] MEDS: Omega-3-Acid Ethyl Esters 1 GM Cap PO SCH ×2 (09:32→18:00)
[2018-05-29] MEDS: Azithromycin 500 MG in Sodium Chloride 0.9% 250 ML IVPB SCH (09:38)
[2018-05-29] MEDS ORDERED: Pantoprazole 40 mg EC Tab PO SCH (10:00)
[2018-05-29] MEDS ORDERED: NIACIN 1000 MG PO SCH (10:00)
[2018-05-29] MEDS ORDERED: Levothyroxine 175 MCG TAB PO SCH (10:00)
[2018-05-29 10:02] LABS: FOLATE 13.3 ng/mL
--- NOTE | 2018-05-29 11:30 | US ---
PROCEDURE: Date of procedure: 05/28/2018 Procedure: 1. Limited ultrasound of chest for purposes of thoracentesis HISTORY: Left pleural effusion. TECHNIQUE: Following informed consent , limited ultrasound of chest was performed for purposes of thoracentesis. Ultrasound showed a scant amount of left pleural effusion. There is not sufficient fluid within the left chest for safe thoracentesis. No intervention was performed. IMPRESSION: Insufficient fluid within the left pleural space for thoracentesis.
--- NOTE | 2018-05-29 15:29 | CP.PCM.PN ---
Subjective - Date & Time of Evaluation Date of Evaluation: 05/29/18 Time of Evaluation: 12:20 - Subjective Subjective: patient seen and examined No shortness of breath or cough Afebrile Drop in hemoglobin noted No active bleeding Not enough fluid for thoracentesis as per IR Objective - Vital Signs/Intake and Output Vital Signs (last 24 hours): Temp Pulse Resp BP Pulse Ox 97.9 F 90 18 135/85 99 05/29/18 07:00 05/29/18 07:30 05/29/18 07:00 05/29/18 07:00 05/29/18 07:00 Intake and Output: 05/29/18 05/29/18 06:59 18:59 Intake Total 435 600 Balance 435 600 - Medications Medications: Current Medications Albuterol/Ipratropium (Duoneb 3 Mg/0.5 Mg (3 Ml) Ud) 3 ml INH RQ4 [facility] Last Admin: 05/29/18 13:16 Dose: Not Given Famotidine (Pepcid) 20 mg PO DAILY [facility] Last Admin: 05/29/18 09:32 Dose: 20 mg Fenofibrate (Tricor) 145 mg PO QPM [facility] Last Admin: 05/28/18 20:42 Dose: Not Given Azithromycin 500 mg/ Sodium (Chloride) 250 mls @ 250 mls/hr IVPB DAILY [facility] PRN Reason: Protocol Last Admin: 05/29/18 09:38 Dose: 250 mls/hr Piperacillin Sod/Tazobactam Sod (Zosyn 3.375 Gm Iv Premix) 3.375 gm in 50 mls @ 100 mls/hr IVPB Q8H [facility] PRN Reason: Protocol Last Admin: 05/29/18 15:03 Dose: 100 mls/hr Lamotrigine (Lamictal) 400 mg PO DAILY [facility] Last Admin: 05/29/18 09:32 Dose: 400 mg Levothyroxine Sodium (Synthroid) 175 mcg PO DAILY@0630 [facility] Last Admin: 05/29/18 06:54 Dose: Not Given Montelukast Sodium (Singulair) 10 mg PO HS [facility] Last Admin: 05/28/18 22:04 Dose: Not Given Niacin (Niacin) 1,000 mg PO DAILY [facility] Last Admin: 05/29/18 09:33 Dose: 1,000 mg Iwhhm-5-Eayd Ethyl Esters (Lovaza) 1 gm PO BID [facility] Last Admin: 05/29/18 09:32 Dose: 1 gm Quetiapine Fumarate (Seroquel Xr) 450 mg PO [facility] Last Admin: 05/28/18 22:04 Dose: Not Given - Labs Labs: 05/29/18 08:20 05/29/18 08:20 PT 16.2 SECONDS (9.7-12.2) H D 05/29/18 08:20 INR 1.5 D 05/29/18 08:20 APTT 31 SECONDS (21-34) 05/29/18 08:20 - Head Exam Head Exam: ATRAUMATIC, NORMOCEPHALIC - ENT Exam ENT Exam: Mucous Membranes Moist - Neck Exam Neck Exam: Normal Inspection - Respiratory Exam Respiratory Exam: Decreased Breath Sounds - Cardiovascular Exam Cardiovascular Exam: REGULAR RHYTHM - GI/Abdominal Exam GI & Abdominal Exam: Soft, Normal Bowel Sounds Assessment and Plan (1) Pleural effusion Assessment & Plan: thoracic surgery consult for VATS/biopsy Continue antibiotics Transfuse packed RBCs if necessary Status: Acute (2) Cavitary lesion of lung Status: Acute (3) Pneumonia Status: Acute
--- NOTE | 2018-05-29 16:15 | CP.PCM.CON ---
History of Present Illness - History of Present Illness History of Present Illness: Cardiothoracic consult note for Dr. Hughes Consulted for large loculated empyema vs effusion Left lung, not amenable to IR drainage Mr. crespo is a 52 year old male PMH HTN, HLD, hypothyroidism presenting with left sided sudden onset back pain beginning 05/21. Patient states that he has been experiencing increasing pain developing under his shoulder blade for approximately the past month. On Sunday, while driving in [place], he began to experience irritation that provoked coughing accompanied by severe pain in his left ribs posteriorly. He initially attributed this cough to his allergies, but symptoms were not relieved with allergy medications. Patient endorses cough productive of yellow sputum with nasal congestion. pt has recently lost weight d /t soft foods diet for dental implants. Patient denies immunosuppression, chometherapy or chronic steroid use. He endorses one previous pneumonia episode 5 yrs ago. ROS: pertinent positives: weakness, cough, chronic leg swelling, pertinent negatives: Chest pain, palpitations, SOB, nausea/vomiting, easy bruising, easy bleeding, increase urinary frequency, dysuria, PMH: -Hyperlipidemia -bipolar depression -hypothyroid Surgical Hx: dental implants Family Hx: -CVD: father's family (uncles and grandfather) -Cancer: mother had bladder cancer ( at 64yo) -HTN: father Social Hx: -tobacco: used to smoke a pack/day intermittently for 22 years quit 4 yrs ago -EtOH: formerly drank to "blackout", has not drank in 1 year, currently in AA -Drugs: xanax and ambien -Lives alone -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 Review of Systems - Review of Systems All systems: reviewed and no additional remarkable complaints except Review of Systems: as per HPI Past Patient History - Past Medical History & Family History Past Medical History?: Yes - Past Social History Smoking Status: Former Smoker - CARDIAC Hx Cardiac Disorders: Yes Hx Hypercholesterolemia: Yes - PULMONARY Hx Respiratory Disorders: No - NEUROLOGICAL Hx Neurological Disorder: No - HEENT Hx HEENT Problems: No - RENAL Hx Chronic Kidney Disease: No - ENDOCRINE/METABOLIC Hx Endocrine Disorders: Yes Hx Hypothyroidism: Yes - HEMATOLOGICAL/ONCOLOGICAL Hx Blood Disorders: No - INTEGUMENTARY Hx Dermatological Problems: No - MUSCULOSKELETAL/RHEUMATOLOGICAL Hx Falls: No - GASTROINTESTINAL Hx Gastrointestinal Disorders: No - GENITOURINARY/GYNECOLOGICAL Hx Genitourinary Disorders: No - PSYCHIATRIC Hx Substance Use: No - SURGICAL HISTORY Hx Surgeries: No - ANESTHESIA Hx Anesthesia: No Hx Anesthesia Reactions: No Hx Malignant Hyperthermia: No Has any member of the family had a problem w/ anesthesia?: No Meds Allergies/Adverse Reactions: Allergies Allergy/AdvReac Type Severity Reaction Status Date / Time lentils Allergy Verified 05/27/18 18:02 peanut Allergy Verified 05/27/18 18:02 peas Allergy Verified 05/27/18 18:02 soybean Allergy Verified 05/27/18 18:02 [place] Allergy Uncoded 05/27/18 18:02 - Medications Medications: Current Medications Albuterol/Ipratropium (Duoneb 3 Mg/0.5 Mg (3 Ml) Ud) 3 ml INH RQ4 [facility] Last Admin: 05/29/18 13:16 Dose: Not Given Famotidine (Pepcid) 20 mg PO DAILY [facility] Last Admin: 05/29/18 09:32 Dose: 20 mg Fenofibrate (Tricor) 145 mg PO QPM [facility] Last Admin: 05/28/18 20:42 Dose: Not Given Azithromycin 500 mg/ Sodium (Chloride) 250 mls @ 250 mls/hr IVPB DAILY [facility] PRN Reason: Protocol Last Admin: 05/29/18 09:38 Dose: 250 mls/hr Piperacillin Sod/Tazobactam Sod (Zosyn 3.375 Gm Iv Premix) 3.375 gm in 50 mls @ 100 mls/hr IVPB Q8H [facility] PRN Reason: Protocol Last Admin: 05/29/18 15:03 Dose: 100 mls/hr Lamotrigine (Lamictal) 400 mg PO DAILY [facility] Last Admin: 05/29/18 09:32 Dose: 400 mg Levothyroxine Sodium (Synthroid) 175 mcg PO DAILY@0630 [facility] Last Admin: 05/29/18 06:54 Dose: Not Given Montelukast Sodium (Singulair) 10 mg PO HS [facility] Last Admin: 05/28/18 22:04 Dose: Not Given Niacin (Niacin) 1,000 mg PO DAILY [facility] Last Admin: 05/29/18 09:33 Dose: 1,000 mg Emrgd-7-Rglh Ethyl Esters (Lovaza) 1 gm PO BID [facility] Last Admin: 05/29/18 09:32 Dose: 1 gm Quetiapine Fumarate (Seroquel Xr) 450 mg PO HS [facility] Last Admin: 05/28/18 22:04 Dose: Not Given Physical Exam - Constitutional Appears: Well, Non-toxic, No Acute Distress - Head Exam Head Exam: ATRAUMATIC, NORMOCEPHALIC - ENT Exam ENT Exam: Mucous Membranes Moist - Respiratory Exam Respiratory Exam: Decreased Breath Sounds. absent: Accessory Muscle Use, Rales , Rhonchi, Wheezes, Respiratory Distress, Stridor Additional comments: decreased breath sounds left lower and mid lung dueñas - Cardiovascular Exam Cardiovascular Exam: +S1, +S2 - GI/Abdominal Exam GI & Abdominal Exam: Soft. absent: Tenderness - Extremities Exam Extremities exam: Positive for: pedal edema, pedal pulses present. Negative for : tenderness - Neurological Exam Neurological exam: Alert, Oriented x3 - Psychiatric Exam Psychiatric exam: Normal Affect, Normal Mood - Skin Skin Exam: Dry, Intact, Normal Color, Warm Results - Vital Signs Recent Vital Signs: Last Vital Signs Temp 97.9 F 05/29/18 07:00 Pulse 90 05/29/18 07:30 Resp 18 05/29/18 07:00 BP 135/85 05/29/18 07:00 Pulse Ox 99 05/29/18 07:00 - Labs Result Diagrams: 05/30/18 06:32 05/30/18 06:32 Labs: Laboratory Results - last 24 hr 05/28/18 05/29/18 05/29/18 19:32 08:20 08:20 WBC 14.4 H RBC 3.05 L Hgb 7.7 L Hct 23.6 L MCV 77.2 L MCH 25.2 L MCHC 32.6 L RDW 17.8 H Plt Count 636 H MPV 6.7 L Neut % (Auto) 86.8 H Lymph % (Auto) 5.1 L [place] % (Auto) 7.8 Eos % (Auto) 0.2 Baso % (Auto) 0.1 Neut # (Auto) 12.5 H Lymph # (Auto) 0.7 L [place] # (Auto) 1.1 H Eos # (Auto) 0.0 Baso # (Auto) 0.0 Neutrophils % (Manual) 91 H Lymphocytes % (Manual) 8 L Monocytes % (Manual) 1 Platelet Estimate Increased H Large Platelets Present Hypochromasia (manual) Moderate Poikilocytosis (manual Slight Anisocytosis (manual) Slight Microcytosis (manual) Slight Target Cells Slight Ovalocytes Slight Retic Count PT INR APTT Sodium 136 Potassium 3.9 Chloride 99 Carbon Dioxide 27 Anion Gap 14 BUN 9 Creatinine 0.6 L Est GFR ( Amer) > 60 Est GFR (Non-Af Amer) > 60 Random Glucose 120 H Calcium 8.3 L Phosphorus 3.2 Magnesium 2.0 Total Bilirubin 0.5 AST 211 H D ALT 148 H D Alkaline Phosphatase 166 H Total Protein 6.0 L Albumin 2.8 L Globulin 3.2 Albumin/Globulin Ratio 0.9 L Triglycerides 76 D Cholesterol 57 LDL Cholesterol Direct 32 HDL Cholesterol 12 L Vitamin B12 523 Folate 13.3 Blood Type AB POSITIVE Antibody Screen Negative 05/29/18 05/29/18 08:20 08:20 WBC RBC Hgb Hct MCV MCH MCHC RDW Plt Count MPV Neut % (Auto) Lymph % (Auto) [place] % (Auto) Eos % (Auto) Baso % (Auto) Neut # (Auto) Lymph # (Auto) [place] # (Auto) Eos # (Auto) Baso # (Auto) Neutrophils % (Manual) Lymphocytes % (Manual) Monocytes % (Manual) Platelet Estimate Large Platelets Hypochromasia (manual) Poikilocytosis (manual Anisocytosis (manual) Microcytosis (manual) Target Cells Ovalocytes Retic Count 1.1 PT 16.2 H D INR 1.5 D APTT 31 Sodium Potassium Chloride Carbon Dioxide Anion Gap BUN Creatinine Est GFR ( Amer) Est GFR (Non-Af Amer) Random Glucose Calcium Phosphorus Magnesium Total Bilirubin AST ALT Alkaline Phosphatase Total Protein Albumin Globulin Albumin/Globulin Ratio Triglycerides Cholesterol LDL Cholesterol Direct HDL Cholesterol Vitamin B12 Folate Blood Type Antibody Screen Assessment & Plan - Assessment and Plan (Free Text) Assessment: 52 yr old male with large left lung empyema/effusion which was not amenable to IR drainage Plan: - VSS, no current SOB on 2 L NC, - will likely need thoracotomy for debridement after medically optimized - INR 1.5 today will repeat and f/u in am - d/w Dr. hughes all further recs per him Cayla Bob, PGY 1 - Date & Time Date: 05/29/18 Time: 11:15
[2018-05-29 17:38] LABS: MYCOPLASMA PNEUMONIAE IGM POSITIVE (NEGATIVE)
[2018-05-29] MEDS: QUEtiapine 150 mg XR Tab PO SCH (21:01)
[2018-05-30] MEDS: Albuterol-Ipratrop 3 mg / 0.5 (3 ml) UD INH SCH ×7 (00:37→23:34)
[2018-05-30] MEDS: Piperacill/Tazo 3.375gm in Dex 3.375 GM/50 ML BAG IVPB SCH ×3 (03:33→19:53)
[2018-05-30] MEDS: Levothyroxine 175 MCG TAB PO SCH (06:19)
[2018-05-30 06:36] LABS: BASO % 0.2 % (0.0-2.0); EOS # 0.1 K/uL (0.0-0.7); EOS % 0.8 % (0.0-4.0); HEMOGLOBIN 7.1 g/dL (12.0-18.0); LYMPH # 0.7 K/uL (1.0-4.3); LYMPH % 6.2 % (20.0-40.0); MEAN CELL VOLUME 77.4 fL (80.0-94.0); MEAN CORPUSCULAR HEMOGLOBIN 25.4 pg (27.0-31.0); MEAN CORPUSCULAR HGB CONC 32.9 g/dL (33.0-37.0); MEAN PLATELET VOLUME 6.6 fL (7.2-11.7); MONO # 0.9 K/uL (0.0-0.8); MONO % 8.2 % (0.0-10.0); NEUT # 8.9 K/uL (1.8-7.0); NEUT % 84.6 % (50.0-75.0); PLATELET COUNT 523 K/uL (130-400); RBC 2.81 Mil/uL (4.40-5.90); RED CELL DISTRIBUTION WIDTH 17.5 % (11.5-14.5); WHITE BLOOD COUNT 10.5 K/uL (4.8-10.8)
[2018-05-30 06:42] LABS: INR 1.5; PROTHROMBIN TIME 16.1 SECONDS (9.7-12.2)
[2018-05-30 07:31] LABS: ALB/GLOB RATIO 0.8 (1.0-2.1); ALBUMIN 2.4 g/dL (3.5-5.0); ALT/SGPT 139 U/L (21-72); AST/SGOT 140 U/L (17-59); BLOOD UREA NITROGEN 9 mg/dL (9-20); GFR AFRICAN-AMERICAN > 60; GFR NON-AFRICAN AMERICAN > 60
[2018-05-30 07:44] LABS: HEPATITIS B SURFACE AG Negative (NEGATIVE)
[2018-05-30 07:49] LABS: HEPATITIS A IGM NEGATIVE (NEGATIVE)
[2018-05-30 08:01] LABS: HEPATITIS C ANTIBODY NEGATIVE (NEGATIVE)
[2018-05-30 08:20] LABS: HEPATITIS B CORE AB NEGATIVE (NEGATIVE)
--- NOTE | 2018-05-30 08:20 | CP.PCM.PN ---
Subjective - Date & Time of Evaluation Date of Evaluation: 05/30/18 Time of Evaluation: 07:00 - Subjective Subjective: Cardiothoracic surgery progress note for Dr. Hughes Patient seen and examined this morning at bedside. No acute events overnight per nursing. Patient states that he continues to have left sided thorax/back pain but otherwise denies SOB at rest, chest pain, n/v/f/c. Objective - Vital Signs/Intake and Output Vital Signs (last 24 hours): Temp Pulse Resp BP Pulse Ox 98.1 F 93 H 20 133/84 96 05/30/18 04:20 05/30/18 04:25 05/30/18 04:20 05/30/18 04:20 05/30/18 04:20 Intake and Output: 05/30/18 05/30/18 06:59 18:59 Intake Total 660 Balance 660 - Medications Medications: Current Medications Albuterol/Ipratropium (Duoneb 3 Mg/0.5 Mg (3 Ml) Ud) 3 ml INH RQ4 [facility] Last Admin: 05/30/18 06:45 Dose: 3 ml Famotidine (Pepcid) 20 mg PO DAILY [facility] Last Admin: 05/29/18 09:32 Dose: 20 mg Fenofibrate (Tricor) 145 mg PO QPM [facility] Last Admin: 05/29/18 17:58 Dose: 145 mg Azithromycin 500 mg/ Sodium (Chloride) 250 mls @ 250 mls/hr IVPB DAILY [facility] PRN Reason: Protocol Last Admin: 05/29/18 09:38 Dose: 250 mls/hr Piperacillin Sod/Tazobactam Sod (Zosyn 3.375 Gm Iv Premix) 3.375 gm in 50 mls @ 100 mls/hr IVPB Q8H [facility] PRN Reason: Protocol Last Admin: 05/30/18 03:33 Dose: 100 mls/hr Lamotrigine (Lamictal) 400 mg PO DAILY [facility] Last Admin: 05/29/18 09:32 Dose: 400 mg Levothyroxine Sodium (Synthroid) 175 mcg PO DAILY@0630 [facility] Last Admin: 05/30/18 06:19 Dose: 175 mcg Montelukast Sodium (Singulair) 10 mg PO HS [facility] Last Admin: 05/29/18 21:01 Dose: 10 mg Niacin (Niacin) 1,000 mg PO DAILY [facility] Last Admin: 05/29/18 09:33 Dose: 1,000 mg Ancux-3-Okvg Ethyl Esters (Lovaza) 1 gm PO BID [facility] Last Admin: 05/29/18 18:00 Dose: 1 gm Quetiapine Fumarate (Seroquel Xr) 450 mg PO HS [facility] Last Admin: 05/29/18 21:01 Dose: 450 mg - Labs Labs: 05/30/18 06:32 05/30/18 06:32 PT 16.1 SECONDS (9.7-12.2) H 05/30/18 06:32 INR 1.5 05/30/18 06:32 APTT 31 SECONDS (21-34) 05/29/18 08:20 - Constitutional Appears: Well, Non-toxic, No Acute Distress - Eye Exam Eye Exam: Normal appearance - ENT Exam ENT Exam: Mucous Membranes Moist - Respiratory Exam Respiratory Exam: Decreased Breath Sounds, NORMAL BREATHING PATTERN Additional comments: deccreased breath sounds left lower lung field, crackles left mid lung - GI/Abdominal Exam GI & Abdominal Exam: Soft. absent: Tenderness - Extremities Exam Extremities Exam: absent: Calf Tenderness, Pedal Edema, Tenderness - Neurological Exam Neurological Exam: Alert, Awake, Oriented x3 - Psychiatric Exam Psychiatric exam: Normal Affect, Normal Mood - Skin Skin Exam: Dry, Intact, Normal Color, Warm Assessment and Plan - Assessment and Plan (Free Text) Assessment: 52 yr old male with large left lung loculated effusion/ empyema with possible cavitary lesions not amenable to IR drainage Plan: - continue 2L NC O2 supplement, patient denies SOB - reccomend ID consult d/t yeast in sputum culture and recent travel to area endemic for Blastomycosis and histoplasmosis - plan for thoracotomy tomorrow - 2 units blood, Vitamin K and FFP ordered d/t elevated INR and Hgb decrease to 7.1 - d/w Dr. Hughes all further recs per him Cayla Bob, PGY 1
[2018-05-30 08:35] LABS: ANISOCYTOSIS SLIGHT; EOSINOPHIL 1 % (0-4); HYPOCHROMIC SLIGHT; LYMPHOCYTE 7 % (20-40); MONOCYTE 5 % (0-10); NEUTROPHIL 87 % (50-75); PLATELET ESTIMATE INCREASED (NORMAL); POIKILOCYTOSIS SLIGHT; TARGET CELLS SLIGHT; TEARDROP CELLS SLIGHT; TOTAL CELLS COUNTED 100
[2018-05-30] MEDS ORDERED: Pneumococcal 23-Valent Vaccine IM ONE (10:00)
[2018-05-30] MEDS: Omega-3-Acid Ethyl Esters 1 GM Cap PO SCH ×2 (10:47→18:19)
[2018-05-30] MEDS ORDERED: Phytonadione 10 mg/ml Inj (Adult) SC STA (11:03)
--- NOTE | 2018-05-30 11:41 | CARD ---
APPROVED REPORT Date of service: 05/29/2018 EXAM: Two-dimensional and M-mode echocardiogram with Doppler and color Doppler. Other Information Quality : GoodRhythm : INDICATION Dyspnea Pleural Effusion RISK FACTORS Hyperlipidemia 2D DIMENSIONS IVSd1.3 (0.7-1.1cm)Aortic Root (2D)2.6 (2.0-3.7cm) LVDd4.4 (3.9-5.9cm)PWd1.1 (0.7-1.1cm) LVDs3.0 (2.5-4.0cm)FS (%) 30.3 % LVEF (%)57.9 (>50%) M-Mode DIMENSIONS Left Atrium (MM)3.10 (2.5-4.0cm)Aortic Root3.20 (2.2-3.7cm) Aortic Cusp Exc.2.13 (1.5-2.0cm) Mitral Valve MV E Joitjhnc27.8cm/sMV A Yyxitjkg60.9cm/sE/A ratio1.2 TDI E/Lateral E'0.0E/Medial E'0.0 <Conclusion> tds. poor windows. normal size la,lv & ra rv. mild concnetric lvh with normal lv systolic & diastolic function with lvef of 60-65%. aortic & pv not well seen but probably normal. mitral & tv appears nromal. trace mr,tr & pi. nomral size aortic root & ivc. no pericardial effusion seen.
[2018-05-30] MEDS: Azithromycin 500 MG in Sodium Chloride 0.9% 250 ML IVPB SCH (12:30)
--- NOTE | 2018-05-30 14:03 | CP.PCM.PN ---
Subjective - Date & Time of Evaluation Date of Evaluation: 05/30/18 Time of Evaluation: 10:00 - Subjective Subjective: the patient seen and examined Denies shortness of breath or chest pain Afebrile For decortication tomorrow Transfuse FFP and packed RBCs Objective - Vital Signs/Intake and Output Vital Signs (last 24 hours): Temp Pulse Resp BP Pulse Ox 98.2 F 100 H 18 120/69 97 05/30/18 07:40 05/30/18 07:40 05/30/18 07:40 05/30/18 07:40 05/30/18 07:40 Intake and Output: 05/30/18 05/30/18 06:59 18:59 Intake Total 660 Balance 660 - Medications Medications: Current Medications Albuterol/Ipratropium (Duoneb 3 Mg/0.5 Mg (3 Ml) Ud) 3 ml INH RQ4 [facility] Last Admin: 05/30/18 12:33 Dose: 3 ml Famotidine (Pepcid) 20 mg PO DAILY [facility] Last Admin: 05/30/18 10:47 Dose: 20 mg Fenofibrate (Tricor) 145 mg PO QPM [facility] Last Admin: 05/29/18 17:58 Dose: 145 mg Azithromycin 500 mg/ Sodium (Chloride) 250 mls @ 250 mls/hr IVPB DAILY [facility] PRN Reason: Protocol Last Admin: 05/30/18 12:30 Dose: 250 mls/hr Piperacillin Sod/Tazobactam Sod (Zosyn 3.375 Gm Iv Premix) 3.375 gm in 50 mls @ 100 mls/hr IVPB Q8H [facility] PRN Reason: Protocol Last Admin: 05/30/18 12:00 Dose: 100 mls/hr Lamotrigine (Lamictal) 400 mg PO DAILY [facility] Last Admin: 05/30/18 10:47 Dose: 400 mg Levothyroxine Sodium (Synthroid) 175 mcg PO DAILY@0630 [facility] Last Admin: 05/30/18 06:19 Dose: 175 mcg Montelukast Sodium (Singulair) 10 mg PO HS [facility] Last Admin: 05/29/18 21:01 Dose: 10 mg Niacin (Niacin) 1,000 mg PO DAILY [facility] Last Admin: 05/30/18 10:47 Dose: 1,000 mg Jrizr-3-Wogx Ethyl Esters (Lovaza) 1 gm PO BID [facility] Last Admin: 05/30/18 10:47 Dose: 1 gm Quetiapine Fumarate (Seroquel Xr) [address] [facility] Last Admin: 05/29/18 21:01 Dose: 450 mg - Labs Labs: 05/30/18 06:32 05/30/18 06:32 PT 16.1 SECONDS (9.7-12.2) H 05/30/18 06:32 INR 1.5 05/30/18 06:32 APTT 31 SECONDS (21-34) 05/29/18 08:20 - Head Exam Head Exam: ATRAUMATIC, NORMOCEPHALIC - ENT Exam ENT Exam: Mucous Membranes Moist - Neck Exam Neck Exam: Normal Inspection - Respiratory Exam Respiratory Exam: Decreased Breath Sounds - Cardiovascular Exam Cardiovascular Exam: REGULAR RHYTHM - GI/Abdominal Exam GI & Abdominal Exam: Soft, Normal Bowel Sounds - Extremities Exam Extremities Exam: Full ROM - Neurological Exam Neurological Exam: Alert, Oriented x3 Assessment and Plan (1) Pleural effusion Assessment & Plan: for decortication tomorrow Possible empyema/malignancy Lung biopsy Pleural fluid for culture and sensitiv Continue antibiotics Status: Acute (2) Cavitary lesion of lung Status: Acute (3) Pneumonia Status: Acute
--- NOTE | 2018-05-30 14:20 | CP.PCM.PN ---
<Omar Barriga - Last Filed: 05/30/18 14:16> Subjective - Date & Time of Evaluation Date of Evaluation: 05/30/18 Time of Evaluation: 14:16 - Subjective Subjective: Pt seen and examined at bedside. Pt reports left sided inspiratory pain, Pt reports SOB upon exertion. Pt denies cp, f/v, n/v, headache abnormal bowel movements, pain with urination or leg pains. Pt understands importance for surgical intervention and agrees with current plan. Objective - Vital Signs/Intake and Output Vital Signs (last 24 hours): Temp Pulse Resp BP Pulse Ox 98.2 F 100 H 18 120/69 97 05/30/18 07:40 05/30/18 07:40 05/30/18 07:40 05/30/18 07:40 05/30/18 07:40 Intake and Output: 05/30/18 05/30/18 06:59 18:59 Intake Total 660 Balance 660 - Medications Medications: Current Medications Albuterol/Ipratropium (Duoneb 3 Mg/0.5 Mg (3 Ml) Ud) 3 ml INH RQ4 [facility] Last Admin: 05/30/18 12:33 Dose: 3 ml Famotidine (Pepcid) 20 mg PO DAILY [facility] Last Admin: 05/30/18 10:47 Dose: 20 mg Fenofibrate (Tricor) 145 mg PO QPM [facility] Last Admin: 05/29/18 17:58 Dose: 145 mg Azithromycin 500 mg/ Sodium (Chloride) 250 mls @ 250 mls/hr IVPB DAILY [facility] PRN Reason: Protocol Last Admin: 05/30/18 12:30 Dose: 250 mls/hr Piperacillin Sod/Tazobactam Sod (Zosyn 3.375 Gm Iv Premix) 3.375 gm in 50 mls @ 100 mls/hr IVPB Q8H [facility] PRN Reason: Protocol Last Admin: 05/30/18 12:00 Dose: 100 mls/hr Lamotrigine (Lamictal) 400 mg PO DAILY [facility] Last Admin: 05/30/18 10:47 Dose: 400 mg Levothyroxine Sodium (Synthroid) 175 mcg PO DAILY@0630 [facility] Last Admin: 05/30/18 06:19 Dose: 175 mcg Montelukast Sodium (Singulair) 10 mg PO HS [facility] Last Admin: 05/29/18 21:01 Dose: 10 mg Niacin (Niacin) 1,000 mg PO DAILY [facility] Last Admin: 05/30/18 10:47 Dose: 1,000 mg [id number] Ethyl Esters (Lovaza) 1 gm PO BID [facility] Last Admin: 05/30/18 10:47 Dose: 1 gm Quetiapine Fumarate (Seroquel Xr) 450 mg PO HS [facility] Last Admin: 05/29/18 21:01 Dose: 450 mg - Labs Labs: 05/30/18 06:32 05/30/18 06:32 PT 16.1 SECONDS (9.7-12.2) H 05/30/18 06:32 INR 1.5 05/30/18 06:32 APTT 31 SECONDS (21-34) 05/29/18 08:20 - Constitutional Appears: Well, Non-toxic, No Acute Distress - Head Exam Head Exam: ATRAUMATIC, NORMAL INSPECTION - Eye Exam Eye Exam: EOMI, Normal appearance. absent: Scleral icterus - ENT Exam ENT Exam: Mucous Membranes Moist - Neck Exam Neck Exam: Normal Inspection. absent: Lymphadenopathy, Tenderness, Thyromegaly - Respiratory Exam Respiratory Exam: Decreased Breath Sounds (L side) - Cardiovascular Exam Cardiovascular Exam: RRR, +S1, +S2 - GI/Abdominal Exam GI & Abdominal Exam: Soft. absent: Distended, Tenderness, Pulsatile Mass - Extremities Exam Extremities Exam: Normal Inspection - Back Exam Back Exam: absent: CVA tenderness (L), CVA tenderness (R) - Neurological Exam Neurological Exam: Alert, Awake, CN II-XII Intact, Oriented x3 - Psychiatric Exam Psychiatric exam: Normal Affect, Normal Mood - Skin Skin Exam: Dry, Normal Color, Warm Assessment and Plan - Assessment and Plan (Free Text) Assessment: Left Lung Loculated effusion - Dr Hughes CardioThoracic Sx consulted: recommending thoracotomy tomorrow. -Pre op INR target is below 1.5 -Given Vit K 10mg sc, -f/u INR -Leukocytosis resolved -Mycoplasma Pneump - Azithromycin 500 mg IVPB daily - Zosyn 3.375 gm IVPB Q8H - blood culture: no growth 48th hrs - Chest CT shows moderate to large left pleural effusion with localized effusion at the mid and upper portion of the left chest cavity compressing on the left lung. Foci of gas in mid and lower portion of left pleural effusion and possible abscess formation at left lower pleural space or less likely in left lung lower lobe as described above. Compressive atelectasis of left lung more prominent in left lower lobe. Small ground-glass opacities seen in right lung may represent lung edema or congestion. Splenomegaly. - IR consulted, Dr. Meyers. Recs appreciated. - Thoracentesis attempted, however was cancelled as fluid was unable to be drained. - Surgery consulted. Appreciate recs. Transaminitis - Hep and HIV panels Neg Diarrhea - Followup stool cultures, fecal leukocytes Anemia - Hgb 8.1, Hct 25.4 - FOBT negative - Iron <10, TIBC 266, % saturation 3.75, ferritin 130.0 - Retic count 0.9 - B12 523, folate 13.3 Hyponatremia- resolved - Continue to monitor HLD - Fenofibrate 145mg po HS - Niacin 1g po daily Hypothyroidism - Synthroid 175mcg daily - TSH 0.75, T4 1.31 Bipolar Disorder - Gabapentin 600mg po TID, 1200mg po HS held - Seroquel 450mg po HS - Lamictal 400mg po daily - Hydroxazine 100mg HS (held due to increased QTc prolongation with azithromycin ) Prophylaxis - Hold vte prophylaxis 2/2 anemia and target INR - Pepcid 20mg po daily DISPO: Pt INR target >1.5, waiting for thoracotomy tmrw w Dr Hughes <Dodie Montgomery V - Last Filed: 05/30/18 15:16> Objective - Vital Signs/Intake and Output Vital Signs (last 24 hours): Temp Pulse Resp BP Pulse Ox 98.2 F 90 18 120/69 97 05/30/18 07:40 05/30/18 07:40 05/30/18 07:40 05/30/18 07:40 05/30/18 07:40 Intake and Output: 05/30/18 05/30/18 06:59 18:59 Intake Total 660 Balance 660 - Medications Medications: Current Medications Albuterol/Ipratropium (Duoneb 3 Mg/0.5 Mg (3 Ml) Ud) 3 ml INH RQ4 [facility] Last Admin: 05/30/18 12:33 Dose: 3 ml Famotidine (Pepcid) 20 mg PO DAILY [facility] Last Admin: 05/30/18 10:47 Dose: 20 mg Fenofibrate (Tricor) 145 mg PO QPM [facility] Last Admin: 05/29/18 17:58 Dose: 145 mg Azithromycin 500 mg/ Sodium (Chloride) 250 mls @ 250 mls/hr IVPB DAILY [facility] PRN Reason: Protocol Last Admin: 05/30/18 12:30 Dose: 250 mls/hr Piperacillin Sod/Tazobactam Sod (Zosyn 3.375 Gm Iv Premix) 3.375 gm in 50 mls @ 100 mls/hr IVPB Q8H [facility] PRN Reason: Protocol Last Admin: 05/30/18 12:00 Dose: 100 mls/hr Lamotrigine (Lamictal) 400 mg PO DAILY [facility] Last Admin: 05/30/18 10:47 Dose: 400 mg Levothyroxine Sodium (Synthroid) 175 mcg PO DAILY@0630 [facility] Last Admin: 05/30/18 06:19 Dose: 175 mcg Montelukast Sodium (Singulair) 10 mg PO HS [facility] Last Admin: 05/29/18 21:01 Dose: 10 mg Niacin (Niacin) 1,000 mg PO DAILY [facility] Last Admin: 05/30/18 10:47 Dose: 1,000 mg [id number] Ethyl Esters (Lovaza) 1 gm PO BID [facility] Last Admin: 05/30/18 10:47 Dose: 1 gm Quetiapine Fumarate (Seroquel Xr) 450 mg PO [facility] Last Admin: 05/29/18 21:01 Dose: 450 mg - Labs Labs: 05/30/18 06:32 05/30/18 06:32 PT 16.1 SECONDS (9.7-12.2) H 05/30/18 06:32 INR 1.5 05/30/18 06:32 APTT 31 SECONDS (21-34) 05/29/18 08:20 Attending/Attestation - Attestation I have personally seen and examined this patient.: Yes I have fully participated in the care of the patient.: Yes I have reviewed all pertinent clinical information, including history, physical exam and plan: Yes Notes (Text): Patient seen, examined and case discussed with day-time resident. Patient seen this morning with resident. Patient attempted IR thoracentesis however aborted when there was not enough pleural fluid to prompt procedured. Cardiothoracic surgery on board. Cardiothoracic is recommending for thoractomy for tomorrow. INR: 1.5. Patient given vitamin 10mg subqX1 and will order FFP 1 unit for tonight. Patient is on antibiotics to cover for community acquired pneumonia. * serology shows Mycoplasma IgM-->patient is on Azithromycin Patient reports chronic history of anemia, about 2 years ago, and reports has had colonoscopy recently. Consulted hematology-oncology today. Patient reports significant psychiatric history of bipolar disorder. Surgery and anesthesia to explain risks and benefits of procedure prior to OR. We will attempt to medically optimize INR. Assessment/Plan 1) Pneumonia with large left pleural effusion Mycoplasma Pneumoniae Assessment/Plan * monitor on telemetry * IR consult for thoracentesis-->unable to sample not enough * Pulmonary (Dr. Jaquez) on consult-->help appreciated * Cardiothoracic (Dr. Hughes) on case-->help appreciated * CT Chest (05/28/18): moderate to large left pleural effusion with localized effusion at mid and upper portion of the left chest cavity compressing on the left lung. Foci of gas in the mid and lower portion of the left pleural effusion and possible abscess formation at th left lower pleural space or less likely in the left lung lower lobe. Compressive atelectasis of the left lung more prominent in the left lung lower lobe. Small ground glass opacities in the right lung may represent lung edema or congestion. Splenomegaly. * Azithromycin 500mg IVPB daily (active since 05/27/18) * Zosyn 3.375 IVPB Q8H (active since 05/28/18) * Duonebs PRN shortness of breathe * Advair 500/50 1 puff inhaled Q12H (Patient takes Symbicort as outpatient not available on hospital formulary) 2) Chronic Anemia Assessment/Plan * HgB 8.1 * Reticulocyte index: 0.37-->hypoproliferation of reticulocytes * Iron: <10 * TIBC: 266 * Ferritin: 130 * pending B12 and folate * Patient reports he has completed colonoscopy in the past * Patient reports has not had bone marrow biopsy or any further workup * Stool occult blood Negative 3) Hyponatremia Assessment/Plan * d/c IV fluids * sodium normalized 4) Lipid Disorder Assessment/Plan * Fenofibrate 145mg po HS * Niacin 1g po daily * Lipid panel in the AM 5) Hypothyroidism Assessment/Plan * Synthroid 175mcg PO qAM * within normal 6) History of Bipolar Disorder * Reviewed medications with patient: * Patient sparingly takes Gabapentin 100mg PO Q4 * Seroquel XR 450mg po HS * Lamictal 400mg po daily * Hydroxazine 100mg HS (held due to increased QTc prolongation with azithromycin) 7) Asthma Assessment/Plan * Patient takes Symbicort as outpatient * Patient has not formally seen a lung doctor * Patient reports significant smoking history 8) Elevated INR Assessment/Plan * Vitamin K 10mg subq X1, FFP X1 unit tonight; f/u INR tomorrow for tomorrow. * Abdominal US check liver given elevated INR 9) Smoking History Assessment/Plan * Former smoker * Counselled cessation * Nicoderm patch daily 10) Leukocytosis Assessment/Plan * Blood culture (05/27/18): no growth after 48 hours X2 * Sputum culture (05/27/18): pending * procalcitonin: 11) Transaminitis Assessment/Plan * Hepatitis panel: negative * Improving * Note: patient is on azithromycin and zosyn * Abdominal US (05/28/18): increased echogenicity of the hepatic parenchymal cortex suggestive for fatty infiltration versus hepatic parenchymal disease. prominent liver and spleen as above. limited visualized of the pancreas 12) Prophylaxis * Chemical anticoagulation held secondary to thoracentesis and elevated INR * Protonix 40mg PO daily Disposition: To be NPO after midnight for thoractomy. pleural fluid studies to be collect and cytology to be collected. Will give Vitamin K 10mg subq X1, and 1 unit of FFP tonight.
[2018-05-30 15:16] LABS: INR 1.4; PROTHROMBIN TIME 15.8 SECONDS (9.7-12.2)
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
[2018-05-30] MEDS: QUEtiapine 150 mg XR Tab PO SCH (21:45)
[2018-05-30] MEDS: Lactated Ringer's 1,000 ML IV SCH (23:37)
[2018-05-31] MEDS: Piperacill/Tazo 3.375gm in Dex 3.375 GM/50 ML BAG IVPB SCH ×3 (03:03→19:04)
[2018-05-31] MEDS: Lactated Ringer's 1,000 ML IV SCH ×4 (03:03→20:58)
[2018-05-31] MEDS: Albuterol-Ipratrop 3 mg / 0.5 (3 ml) UD INH SCH ×5 (03:12→19:31)
[2018-05-31] MEDS: Levothyroxine 175 MCG TAB PO SCH (05:40)
[2018-05-31 06:16] LABS: BASO % 0.4 % (0.0-2.0); EOS # 0.1 K/uL (0.0-0.7); EOS % 0.8 % (0.0-4.0); HEMOGLOBIN 8.6 g/dL (12.0-18.0); LYMPH # 0.7 K/uL (1.0-4.3); MEAN CELL VOLUME 79.2 fL (80.0-94.0); MEAN CORPUSCULAR HEMOGLOBIN 26.7 pg (27.0-31.0); MEAN CORPUSCULAR HGB CONC 33.8 g/dL (33.0-37.0); MEAN PLATELET VOLUME 6.6 fL (7.2-11.7); MONO # 0.9 K/uL (0.0-0.8); MONO % 9.5 % (0.0-10.0); NEUT # 7.8 K/uL (1.8-7.0); NEUT % 82.3 % (50.0-75.0); NRBC % 0.1 % (0.0-2.0); PLATELET COUNT 517 K/uL (130-400); RED CELL DISTRIBUTION WIDTH 17.8 % (11.5-14.5); WHITE BLOOD COUNT 9.5 K/uL (4.8-10.8)
[2018-05-31 06:28] LABS: INR 1.4; PROTHROMBIN TIME 15.2 SECONDS (9.7-12.2)
[2018-05-31] MEDS ORDERED: ceFAZolin IV 1 gm in Dextrose 2 GM/100 ML BAG IVPB ONE (07:01)
[2018-05-31] MEDS ORDERED: Propofol 10 mg/ml Inj (20 ML) ONE (07:25)
[2018-05-31] MEDS ORDERED: Midazolam 2 MG/2 ML VIAL ONE (07:25)
[2018-05-31] MEDS ORDERED: Etomidate 20 mg/10ml Inj IV ONE (07:27)
[2018-05-31] MEDS ORDERED: Rocuronium 10 mg/ml (10 ml) ONE ×2 (07:30→08:15)
[2018-05-31 07:46] LABS: EOSINOPHIL 1 % (0-4); LYMPHOCYTE 9 % (20-40); MONOCYTE 6 % (0-10); MYELOCYTE 1 % (0-0); NEUTROPHIL 83 % (50-75); PLATELET ESTIMATE INCREASED (NORMAL); TOTAL CELLS COUNTED 100
[2018-05-31 07:47] LABS: ANISOCYTOSIS SLIGHT; HYPOCHROMIC SLIGHT; MICROCYTOSIS SLIGHT; POIKILOCYTOSIS SLIGHT
[2018-05-31 07:48] LABS: TARGET CELLS SLIGHT
[2018-05-31 07:49] LABS: LARGE PLATELETS PRESENT
[2018-05-31 08:06] LABS: ALB/GLOB RATIO 0.9 (1.0-2.1); ALBUMIN 2.5 g/dL (3.5-5.0); ALT/SGPT 139 U/L (21-72); AST/SGOT 104 U/L (17-59); BLOOD UREA NITROGEN 7 mg/dL (9-20); GFR AFRICAN-AMERICAN > 60; GFR NON-AFRICAN AMERICAN > 60
[2018-05-31] MEDS ORDERED: Morphine 4 MG/ML VIAL ONE (08:29)
[2018-05-31] MEDS ORDERED: Neostigmine Methylsulfate 3mg/3ml Syringe IV ONE (08:53)
--- NOTE | 2018-05-31 09:22 | CP.PCM.PN ---
<Imani King - Last Filed: 05/31/18 14:41> Subjective - Date & Time of Evaluation Date of Evaluation: 05/31/18 Time of Evaluation: 13:54 - Subjective Subjective: Patient examined at bedside s/p thoracotomy with decortication and evacuation of empyema, chest tube. Patient reports his pain is well controlled with medication. Patient denies chest pain, SOB, pain with deep inspiration, incision site pain, abd pain, nausea, vomiting Objective - Vital Signs/Intake and Output Vital Signs (last 24 hours): Temp Pulse Resp BP Pulse Ox 98.1 F 95 H 20 122/79 99 05/30/18 23:53 05/31/18 00:08 05/30/18 23:53 05/30/18 23:54 05/30/18 23:21 Intake and Output: 05/31/18 05/31/18 06:59 18:59 Intake Total 1700 1100 Output Total 600 Balance 1100 1100 - Medications Medications: Current Medications Albuterol/Ipratropium (Duoneb 3 Mg/0.5 Mg (3 Ml) Ud) 3 ml INH RQ4 COUNT INCLUDES THE [facility] Last Admin: 05/31/18 06:55 Dose: 3 ml Famotidine (Pepcid) 20 mg PO DAILY COUNT INCLUDES THE [facility] Last Admin: 05/30/18 10:47 Dose: 20 mg Fenofibrate (Tricor) 145 mg PO QPM COUNT INCLUDES THE [facility] Last Admin: 05/30/18 18:19 Dose: 145 mg Furosemide (Lasix) 40 mg IVP ONCE PRN PRN Reason: Shortness of Breath Last Admin: 05/30/18 23:54 Dose: 40 mg Azithromycin 500 mg/ Sodium (Chloride) 250 mls @ 250 mls/hr IVPB DAILY COUNT INCLUDES THE [facility] PRN Reason: Protocol Last Admin: 05/30/18 12:30 Dose: 250 mls/hr Piperacillin Sod/Tazobactam Sod (Zosyn 3.375 Gm Iv Premix) 3.375 gm in 50 mls @ 100 mls/hr IVPB Q8H ELLIS PRN Reason: Protocol Last Admin: 05/31/18 03:03 Dose: 100 mls/hr Lactated Ringer's (Lactated Ringer's) 1,000 mls @ 125 mls/hr IV .Q8H COUNT INCLUDES THE [facility] Last Admin: 05/31/18 08:37 Dose: Not Given Lamotrigine (Lamictal) 400 mg PO DAILY COUNT INCLUDES THE [facility] Last Admin: 05/30/18 10:47 Dose: 400 mg Levothyroxine Sodium (Synthroid) 175 mcg PO DAILY@0630 COUNT INCLUDES THE [facility] Last Admin: 05/31/18 05:40 Dose: Not Given Montelukast Sodium (Singulair) 10 mg PO [facility] Last Admin: 05/30/18 21:45 Dose: 10 mg Niacin (Niacin) 1,000 mg PO DAILY COUNT INCLUDES THE [facility] Last Admin: 05/30/18 10:47 Dose: 1,000 mg Uhtth-4-Mhdi Ethyl Esters (Lovaza) 1 gm PO BID COUNT INCLUDES THE [facility] Last Admin: 05/30/18 18:19 Dose: 1 gm Quetiapine Fumarate (Seroquel Xr) 450 mg PO [facility] Last Admin: 05/30/18 21:45 Dose: 450 mg - Labs Labs: 05/31/18 06:08 05/31/18 06:08 PT 15.2 SECONDS (9.7-12.2) H 05/31/18 06:08 INR 1.4 05/31/18 06:08 APTT 28 SECONDS (21-34) 05/31/18 06:08 - Constitutional Appears: Non-toxic, No Acute Distress - Head Exam Head Exam: ATRAUMATIC, NORMAL INSPECTION, NORMOCEPHALIC - Eye Exam Eye Exam: EOMI, Normal appearance - ENT Exam ENT Exam: Mucous Membranes Moist - Neck Exam Neck Exam: Normal Inspection. absent: Lymphadenopathy - Respiratory Exam Respiratory Exam: Decreased Breath Sounds (Left), NORMAL BREATHING PATTERN. absent: Accessory Muscle Use, Chest Wall Tenderness, Rhonchi, Wheezes - Cardiovascular Exam Cardiovascular Exam: REGULAR RHYTHM, +S1, +S2. absent: Tachycardia, Murmur - GI/Abdominal Exam GI & Abdominal Exam: Soft, Normal Bowel Sounds. absent: Distended, Tenderness - Extremities Exam Extremities Exam: Normal Capillary Refill, Normal Inspection. absent: Calf Tenderness, Pedal Edema - Neurological Exam Neurological Exam: Alert, Awake, Oriented x3 - Psychiatric Exam Psychiatric exam: Normal Affect, Normal Mood - Skin Skin Exam: Dry, Intact, Normal Color, Warm - Additional Findings Additional findings: Dressing noted mid axillary on left, rib 3-6, clean, dry, intact. Chest tube draining ss fluid~120ml Assessment and Plan - Assessment and Plan (Free Text) Assessment: Left Lung Loculated effusion - Chest CT shows moderate to large left pleural effusion with localized effusion at the mid and upper portion of the left chest cavity compressing on the left lung. Foci of gas in mid and lower portion of left pleural effusion and possible abscess formation at left lower pleural space or less likely in left lung lower lobe as described above. Compressive atelectasis of left lung more prominent in left lower lobe. Small ground-glass opacities seen in right lung may represent lung edema or congestion. Splenomegaly. -s/p thoracotomy, decortication, empyema evacuation, chest tube insertion POD#0 -f/u empyema cxs -dilaudid [employer] 6mg Q4 PRN -Leukocytosis increasing 9.5-->13.9 -Mycoplasma PNA IgM + - Azithromycin 500 mg IVPB daily - Zosyn 3.375 gm IVPB Q8H - blood culture-no growth - sputum cx-gram pos cocci, f/u - IR consulted, Dr. Meyers. Recs appreciated. - Thoracentesis cancelled as not appropriate tx - Surgery consulted. Appreciate recs. Diarrhea - Followup stool cultures, fecal leukocytes Anemia - Hgb 9.7 s/p 2U PRBC(05/30) - FOBT negative - Iron <10, TIBC 266, % saturation 3.75, ferritin 130.0 - Retic count 0.9 - B12 523, folate 13.3 HLD - Fenofibrate 145mg po HS - Niacin 1g po daily Hypothyroidism - Synthroid 175mcg daily - TSH 0.75, T4 1.31 Bipolar Disorder - Seroquel 450mg po HS - Lamictal 400mg po daily Hyponatremia- resolved - Continue to monitor Transaminitis - Hep and HIV panels Neg Prophylaxis - Lovenox 40 sc - Pepcid 20mg po daily <Dodie Montgomery V - Last Filed: 05/31/18 16:34> Objective - Vital Signs/Intake and Output Vital Signs (last 24 hours): Temp Pulse Resp BP Pulse Ox 97.7 F 87 18 122/75 96 05/31/18 12:21 05/31/18 12:21 05/31/18 12:21 05/31/18 12:21 05/31/18 12:21 Intake and Output: 05/31/18 05/31/18 06:59 18:59 Intake Total 1700 1975 Output Total 600 45 Balance 1100 1930 - Medications Medications: Current Medications Albuterol/Ipratropium (Duoneb 3 Mg/0.5 Mg (3 Ml) Ud) 3 ml INH RQ4 COUNT INCLUDES [facility] Last Admin: 05/31/18 06:55 Dose: 3 ml Enoxaparin Sodium (Lovenox) 40 mg SC DAILY COUNT INCLUDES THE [facility] Last Admin: 05/31/18 10:02 Dose: Not Given Famotidine (Pepcid) 20 mg PO DAILY COUNT INCLUDES [facility] Last Admin: 05/31/18 09:37 Dose: Not Given Fenofibrate (Tricor) 145 mg PO QPM COUNT INCLUDES [facility] Last Admin: 05/30/18 18:19 Dose: 145 mg Furosemide (Lasix) 40 mg IVP ONCE PRN PRN Reason: Shortness of Breath Last Admin: 05/30/18 23:54 Dose: 40 mg Hydromorphone/Sodium Chloride (Dilaudid [employer]) 6 mg IV Q4H PRN; Protocol PRN Reason: Pain, moderate (4-7) Last Admin: 05/31/18 10:25 Dose: 6 mg Azithromycin 500 mg/ Sodium (Chloride) 250 mls @ 250 mls/hr IVPB DAILY COUNT INCLUDES [facility] PRN Reason: Protocol Last Admin: 05/31/18 09:37 Dose: Not Given Piperacillin Sod/Tazobactam Sod (Zosyn 3.375 Gm Iv Premix) 3.375 gm in 50 mls @ 100 mls/hr IVPB Q8H ELLIS PRN Reason: Protocol Last Admin: 05/31/18 12:13 Dose: 100 mls/hr Lactated Ringer's (Lactated Ringer's) 1,000 mls @ 75 mls/hr IV .[id number] COUNT INCLUDES THE [facility] Last Admin: 05/31/18 10:01 Dose: Not Given Lamotrigine (Lamictal) 400 mg PO DAILY COUNT INCLUDES [facility] Last Admin: 05/31/18 09:36 Dose: Not Given Levothyroxine Sodium (Synthroid) 175 mcg PO DAILY@0630 COUNT INCLUDES THE [facility] Last Admin: 05/31/18 05:40 Dose: Not Given Montelukast Sodium (Singulair) 10 mg PO HS COUNT INCLUDES [facility] Last Admin: 05/30/18 21:45 Dose: 10 mg Niacin (Niacin) 1,000 mg PO DAILY COUNT INCLUDES [facility] Last Admin: 05/31/18 09:37 Dose: Not Given Gacbx-2-Yege Ethyl Esters (Lovaza) 1 gm PO BID COUNT INCLUDES THE [facility] Last Admin: 05/31/18 09:37 Dose: Not Given Quetiapine Fumarate (Seroquel Xr) 450 mg PO HS COUNT INCLUDES THE [facility] Last Admin: 05/30/18 21:45 Dose: 450 mg - Labs Labs: 05/31/18 11:06 05/31/18 11:06 PT 15.2 SECONDS (9.7-12.2) H 05/31/18 06:08 INR 1.4 05/31/18 06:08 APTT 28 SECONDS (21-34) 05/31/18 06:08 Attending/Attestation - Attestation I have personally seen and examined this patient.: Yes I have fully participated in the care of the patient.: Yes I have reviewed all pertinent clinical information, including history, physical exam and plan: Yes Notes (Text): Patient seen, examined and case discussed with day-time resident. Patient seen this afternoon post operative day 0. Patient underwent decortication and drain of empyema of left loculated pleural effusion. Patient seen post-op day 0 on the 6th floor with chest tube in place. Patient had 2 tissue culture (2 culture swabs from left lung during OR) sent post-operative. postoperative management per surgery. f/u with surgery in regards to chemical anticoagulation. Patient placed on liquid diet post-op. Prior to OR, patient received 2 units of PRBC and 1 unit of FFP. Infectious Disease consult placed. Assessment/Plan 1) Pneumonia with large left pleural effusion Mycoplasma Pneumoniae Assessment/Plan * monitor on telemetry * IR consult for thoracentesis-->unable to sample not enough * Pulmonary (Dr. Jaquez) on consult-->help appreciated * Cardiothoracic (Dr. Hughes) on case-->help appreciated * Patient had 2 tissue culture (2 culture swabs from left lung during OR) sent post-operative. * Intraoperative/post-operative management per surgery * CT Chest (05/28/18): moderate to large left pleural effusion with localized effusion at mid and upper portion of the left chest cavity compressing on the left lung. Foci of gas in the mid and lower portion of the left pleural effusion and possible abscess formation at th left lower pleural space or less likely in the left lung lower lobe. Compressive atelectasis of the left lung more prominent in the left lung lower lobe. Small ground glass opacities in the right lung may represent lung edema or congestion. Splenomegaly. * Azithromycin 500mg IVPB daily (active since 05/27/18) * Zosyn 3.375 IVPB Q8H (active since 05/28/18) * Duonebs PRN shortness of breathe * Advair 500/50 1 puff inhaled Q12H (Patient takes Symbicort as outpatient not available on hospital formulary) 2) Chronic Anemia Assessment/Plan * s/p 2 unit PRBC 05/30 prior to OR * HgB 8.1 * Reticulocyte index: 0.37-->hypoproliferation of reticulocytes * Iron: <10 * TIBC: 266 * Ferritin: 130 * pending B12 and folate * Patient reports he has completed colonoscopy in the past * Patient reports has not had bone marrow biopsy or any further workup * Stool occult blood Negative 3) Hyponatremia Assessment/Plan * sodium normalized 4) Lipid Disorder Assessment/Plan * Fenofibrate 145mg po HS * Niacin 1g po daily 5) Hypothyroidism Assessment/Plan * Synthroid 175mcg PO qAM * within normal 6) History of Bipolar Disorder * Reviewed medications with patient: * Patient sparingly takes Gabapentin 100mg * Seroquel XR 450mg po HS * Lamictal 400mg po daily * Hydroxazine 100mg HS (held due to increased QTc prolongation with azithromycin) 7) Asthma Assessment/Plan * Patient takes Symbicort as outpatient * Patient has not formally seen a lung doctor * Patient reports significant smoking history 8) Elevated INR Assessment/Plan * Abdominal US (05/28/18): increased echogenicity of the hepatic parenchymal cortex suggestive for fatty infiltation versus hepatic parenchymal disease. Prominent liver and spleen as described above. Limited visualization of the pancreas. * Received FFP prior to OR. 9) Smoking History Assessment/Plan * Former smoker * Counselled cessation * Nicoderm patch daily 10) Leukocytosis Assessment/Plan * Blood culture (05/27/18): no growth after 3 days X2 * Sputum culture (05/27/18): gram positive cocci * F/u tissue culture from left lung * Azithromycin 500mg IV Qdaily (active since 05/28/18) * Zosyn 3.375g IV Q8H (active since 05/28/18) 11) Transaminitis Assessment/Plan * Hepatitis panel: negative * Improving * Note: patient is on azithromycin and zosyn * Abdominal US (05/28/18): increased echogenicity of the hepatic parenchymal cortex suggestive for fatty infiltration versus hepatic parenchymal disease. prominent liver and spleen as above. limited visualized of the pancreas 12) Prophylaxis * Chemical anticoagulation held secondary to thoracentesis and elevated INR * Protonix 40mg PO daily Disposition: Patient underwent thoracotomy today and decoriation. Follow-up 2 left lung tissue samples collected during OR. Discussed with ID, will see patient tomorrow and keep antibiotics presently. Postoperative management per surgery.
[2018-05-31] MEDS: Azithromycin 500 MG in Sodium Chloride 0.9% 250 ML IVPB SCH ×2 (09:37→13:29)
[2018-05-31] MEDS: Omega-3-Acid Ethyl Esters 1 GM Cap PO SCH ×2 (09:37→17:18)
--- NOTE | 2018-05-31 09:39 | PCM.SURG1 ---
Surgeon's Initial Post Op Note - Surgeon's Notes Surgeon: Dr. Hughes Dowel Pin Man: Dr. Loyd PGY4, Dr. Sanchez PGY3 Type of Anesthesia: General Endo Pre-Operative Diagnosis: left lung empyema Operative Findings: see operative report Post-Operative Diagnosis: see operative report Operation Performed: decortication of left lung. evacuation of empyema. insertion of 36Fr chest tube Specimen/Specimens Removed: fibrinous material from empyema Estimated Blood Loss: EBL {In ML}: 300 Blood Products Given: N/A Drains Used: Chest Tubes (36Fr Left chest wall) Post-Op Condition: Good Date of Surgery/Procedure: 05/31/18 Time of Surgery/Procedure: 08:00
[2018-05-31] MEDS: HYDROmorphone 0.5 mg/0.5 ml ISec IVP PRN ×3 (09:47→10:42)
[2018-05-31] MEDS ORDERED: Enoxaparin 40 mg Syringe SC SCH (10:00)
[2018-05-31 11:17] LABS: HEMOGLOBIN 9.7 g/dL (12.0-18.0); MEAN CELL VOLUME 80.1 fL (80.0-94.0); MEAN CORPUSCULAR HEMOGLOBIN 26.3 pg (27.0-31.0); MEAN CORPUSCULAR HGB CONC 32.8 g/dL (33.0-37.0); MEAN PLATELET VOLUME 6.7 fL (7.2-11.7); RBC 3.69 Mil/uL (4.40-5.90); RED CELL DISTRIBUTION WIDTH 17.3 % (11.5-14.5); WHITE BLOOD COUNT 13.9 K/uL (4.8-10.8)
[2018-05-31 11:28] LABS: BLOOD UREA NITROGEN 7 mg/dL (9-20); CALCIUM 7.9 mg/dl (8.6-10.4); GFR AFRICAN-AMERICAN > 60; GFR NON-AFRICAN AMERICAN > 60
--- NOTE | 2018-05-31 11:29 | RAD ---
Date of service: 05/31/2018 HISTORY: Status post decortication COMPARISON: No prior. FINDINGS: LUNGS: Re- demonstrated opacification left mid to lower lung field consistent with a possibly loculated effusion/ empyema. Also again seen is a rounded air collection may represent a discrete abscess in the posterior lower lung lung dueñas. Note that these findings are seen to much better advantage on prior CT scan. Suspect minor right basilar atelectasis. PLEURA: As above. CARDIOVASCULAR: Heart size difficult to assess due to silhouetting left cardiac border however heart exhibit normal size on prior CT scan OSSEOUS STRUCTURES: No significant abnormalities. VISUALIZED UPPER ABDOMEN: Normal. OTHER FINDINGS: None. IMPRESSION: Re- demonstrated opacification left mid to lower lung field consistent with a possibly loculated effusion/ empyema. Also again seen is a rounded air collection may represent a discrete abscess in the posterior lower lung lung dueñas. Note that these findings are seen to much better advantage on prior CT scan. Suspect minor right basilar atelectasis.
[2018-05-31 19:02] LABS: HEMOGLOBIN 10.3 g/dL (12.0-18.0); MEAN CORPUSCULAR HEMOGLOBIN 26.1 pg (27.0-31.0); MEAN CORPUSCULAR HGB CONC 32.7 g/dL (33.0-37.0); MEAN PLATELET VOLUME 6.5 fL (7.2-11.7); RBC 3.94 Mil/uL (4.40-5.90); RED CELL DISTRIBUTION WIDTH 17.4 % (11.5-14.5); WHITE BLOOD COUNT 14.9 K/uL (4.8-10.8)
[2018-05-31] MEDS ORDERED: Phenol Topical 1.4% Throat Spray (180 ml) MT PRN (19:08)
--- NOTE | 2018-05-31 20:26 | OP ---
Copied To: Gigi Hughes MD Attending MD: Gigi Hughes MD PROCEDURE DATE: 05/31/2018 PREOPERATIVE DIAGNOSIS: Left pulmonary emphysema and left pneumonia. ANESTHESIA: General. ASSISTANTS: Surgery residents. INDICATIONS FOR SURGERY: This is 52-year-old, came in about a week earlier with shortness of breath, had a history of fever and chills. CT scan demonstrated a large loculated effusion, probably secondary to pneumonia that was being treated for on the left. After failure to resolve and the loculations, it was opted to operate secondary to probable emphysema. He understood the risks, benefits of the surgery, urgency, and necessity and consented. FINDINGS: A fair amount of gelatinous yellow fibrinous debris about 100 mL of purulent discharge. The lung was expanded at the completion of the procedure. DESCRIPTION OF PROCEDURE: After general endotracheal anesthesia was applied with the left side up, all pressure points cushioned, the left chest was washed with Betadine solution and draped in a sterile manner. A left posterolateral thoracotomy was performed into the chest under direct vision. Mechanical debridement of multiple areas in the left chest to remove the fibrinous debris. There was good hemostasis. Chest tube was placed. The chest was then closed with heavy PDS and the wound was closed in 3 layers and the patient was sent to the ICU. Gigi Hughes MD
[2018-05-31] MEDS: QUEtiapine 150 mg XR Tab PO SCH (21:57)
[2018-06-01] MEDS: Albuterol-Ipratrop 3 mg / 0.5 (3 ml) UD INH SCH ×6 (00:35→20:49)
[2018-06-01] MEDS: Piperacill/Tazo 3.375gm in Dex 3.375 GM/50 ML BAG IVPB SCH ×4 (03:00→18:48)
[2018-06-01 03:28] LABS: MCH 25.2 pg (27.0-33.0); MCV 84.7 fL (80.0-100.0)
[2018-06-01] MEDS: Levothyroxine 175 MCG TAB PO SCH (06:38)
[2018-06-01 06:48] LABS: BASO % 0.3 % (0.0-2.0); EOS # 0.2 K/uL (0.0-0.7); EOS % 1.6 % (0.0-4.0); HEMOGLOBIN 9.5 g/dL (12.0-18.0); LYMPH # 0.8 K/uL (1.0-4.3); MEAN CELL VOLUME 80.3 fL (80.0-94.0); MEAN CORPUSCULAR HEMOGLOBIN 26.3 pg (27.0-31.0); MEAN CORPUSCULAR HGB CONC 32.7 g/dL (33.0-37.0); MEAN PLATELET VOLUME 6.4 fL (7.2-11.7); MONO # 0.9 K/uL (0.0-0.8); MONO % 8.1 % (0.0-10.0); NEUT # 9.6 K/uL (1.8-7.0); PLATELET COUNT 549 K/uL (130-400); RBC 3.62 Mil/uL (4.40-5.90); RED CELL DISTRIBUTION WIDTH 17.7 % (11.5-14.5); WHITE BLOOD COUNT 11.6 K/uL (4.8-10.8)
[2018-06-01 07:40] LABS: ALB/GLOB RATIO 0.8 (1.0-2.1); ALBUMIN 2.2 g/dL (3.5-5.0); ALT/SGPT 87 U/L (21-72); AST/SGOT 35 U/L (17-59); BLOOD UREA NITROGEN 7 mg/dL (9-20); CALCIUM 7.7 mg/dl (8.6-10.4); GFR AFRICAN-AMERICAN > 60; GFR NON-AFRICAN AMERICAN > 60
--- NOTE | 2018-06-01 08:17 | CP.PCM.PN ---
<Imani King - Last Filed: 06/01/18 15:24> Subjective - Date & Time of Evaluation Date of Evaluation: 06/01/18 Time of Evaluation: 09:40 - Subjective Subjective: Pt examined at bedside. Pt reports he feels well. Pain has been tolerable since the CUSTOMER CARE ASSOCIATE was discontinued, 2-12/22. Pt reports an improvement in breathing post-op. Pt denies chest pain, abd pain, nausea, diarrhea, constipation. Objective - Vital Signs/Intake and Output Vital Signs (last 24 hours): Temp Pulse Resp BP Pulse Ox 98.2 F 99 H 20 132/86 98 06/01/18 07:00 06/01/18 07:00 06/01/18 07:00 06/01/18 07:00 06/01/18 07:00 Intake and Output: 06/01/18 06/01/18 06:59 18:59 Intake Total 1630 Output Total 1110 Balance 520 - Medications Medications: Current Medications Albuterol/Ipratropium (Duoneb 3 Mg/0.5 Mg (3 Ml) Ud) 3 ml INH RQ4 [facility] Last Admin: 06/01/18 04:10 Dose: Not Given Famotidine (Pepcid) 20 mg PO DAILY [facility] Last Admin: 05/31/18 09:37 Dose: Not Given Fenofibrate (Tricor) 145 mg PO QPM [facility] Last Admin: 05/31/18 17:18 Dose: 145 mg Furosemide (Lasix) 40 mg IVP ONCE PRN PRN Reason: Shortness of Breath Last Admin: 05/30/18 23:54 Dose: 40 mg Hydromorphone/Sodium Chloride (Dilaudid Liaison Engineer) 6 mg IV Q4H PRN; Protocol PRN Reason: Pain, moderate (4-7) Last Admin: 06/01/18 02:46 Dose: 6 mg Azithromycin 500 mg/ Sodium (Chloride) 250 mls @ 250 mls/hr IVPB DAILY [facility] PRN Reason: Protocol Last Admin: 05/31/18 13:29 Dose: 250 mls/hr Piperacillin Sod/Tazobactam Sod (Zosyn 3.375 Gm Iv Premix) 3.375 gm in 50 mls @ 100 mls/hr IVPB Q8H [facility] PRN Reason: Protocol Last Admin: 06/01/18 03:00 Dose: 100 mls/hr Lactated Ringer's (Lactated Ringer's) 1,000 mls @ 75 mls/hr IV .[id number] [facility] Last Admin: 05/31/18 20:58 Dose: 75 mls/hr Lamotrigine (Lamictal) 400 mg PO DAILY [facility] Last Admin: 05/31/18 09:36 Dose: Not Given Levothyroxine Sodium (Synthroid) 175 mcg PO DAILY@0630 [facility] Last Admin: 06/01/18 06:38 Dose: 175 mcg Montelukast Sodium (Singulair) 10 mg PO [facility] Last Admin: 05/31/18 21:56 Dose: 10 mg Niacin (Niacin) 1,000 mg PO DAILY [facility] Last Admin: 05/31/18 09:37 Dose: Not Given Aghdj-5-Fvaj Ethyl Esters (Lovaza) 1 gm PO BID [facility] Last Admin: 05/31/18 17:18 Dose: 1 gm Potassium Chloride (K-Dur 20 Meq Er Tab) 20 meq PO DAILY [facility] Quetiapine Fumarate (Seroquel Xr) 450 mg PO [facility] Last Admin: 05/31/18 21:57 Dose: 450 mg - Labs Labs: 06/01/18 06:36 06/01/18 06:36 PT 15.2 SECONDS (9.7-12.2) H 05/31/18 06:08 INR 1.4 05/31/18 06:08 APTT 28 SECONDS (21-34) 05/31/18 06:08 - Constitutional Appears: Non-toxic, No Acute Distress - Head Exam Head Exam: ATRAUMATIC, NORMAL INSPECTION, NORMOCEPHALIC - Eye Exam Eye Exam: EOMI, Normal appearance - ENT Exam ENT Exam: Mucous Membranes Moist, Normal Exam - Neck Exam Neck Exam: Full ROM, Normal Inspection. absent: Lymphadenopathy - Respiratory Exam Respiratory Exam: Rales (b/l lower base crackles, L>R), NORMAL BREATHING PATTERN. absent: Accessory Muscle Use, Wheezes - Cardiovascular Exam Cardiovascular Exam: REGULAR RHYTHM, +S1, +S2. absent: Tachycardia, Murmur - Extremities Exam Extremities Exam: Normal Capillary Refill, Normal Inspection. absent: Calf Tenderness, Pedal Edema - Psychiatric Exam Psychiatric exam: Normal Affect, Normal Mood - Skin Skin Exam: Intact, Normal Color, Warm - Additional Findings Additional findings: chest tube, left axilla draining sero-sang fluid. Dressing, clean, dry and intact Assessment and Plan - Assessment and Plan (Free Text) Assessment: 52 yo M s/p thoracotomy, decortication, empyema evacuation and chest tube insertion(05/31) Left lung empyema -s/p thoracotomy, decortication, empyema evacuation, chest tube insertion w/ Dr. Hughes POD#2 -f/u empyema cxs -oxycodone 5/325 q4 PRN pain -Leukocytosis improving 14.9-->11.6 -Mycoplasma PNA IgM + - Azithromycin 500 mg IVPB daily - Zosyn 3.375 gm IVPB Q8H - sputum cx-staph aureus - Sx consult Dr. Hughes -ID consult Dr. Cruz Diarrhea - Followup stool cultures, fecal leukocytes Anemia - Hgb 9.5, s/p 2U PRBC(05/30) - FOBT negative - Iron <10, TIBC 266, % saturation 3.75, ferritin 130.0 - Retic count 0.9 - B12 523, folate 13.3 HLD - Fenofibrate 145mg po HS - Niacin 1g po daily Hypothyroidism - Synthroid 175mcg daily - TSH 0.75, T4 1.31 Bipolar Disorder - Seroquel 450mg po HS - Lamictal 400mg po daily Hyponatremia- resolved - Continue to monitor Transaminitis -improving - Hep and HIV panels Neg Prophylaxis - Lovenox 40 sc resumed post-op - Pepcid 20mg po daily <Dodie Montgomery V - Last Filed: 06/01/18 19:07> Objective - Vital Signs/Intake and Output Vital Signs (last 24 hours): Temp Pulse Resp BP Pulse Ox 97.3 F L 98 H 20 115/78 97 06/01/18 15:20 06/01/18 16:00 06/01/18 15:20 06/01/18 15:20 06/01/18 15:20 Intake and Output: 06/01/18 06/02/18 18:59 06:59 Intake Total 750 Output Total 590 Balance 160 - Medications Medications: Current Medications Albuterol/Ipratropium (Duoneb 3 Mg/0.5 Mg (3 Ml) Ud) 3 ml INH RQ4 [facility] Last Admin: 06/01/18 16:17 Dose: Not Given Enoxaparin Sodium (Lovenox) 40 mg SC DAILY [facility] Last Admin: 06/01/18 09:52 Dose: 40 mg Famotidine (Pepcid) 20 mg PO DAILY [facility] Last Admin: 06/01/18 09:49 Dose: 20 mg Fenofibrate (Tricor) 145 mg PO QPM [facility] Last Admin: 06/01/18 17:30 Dose: 145 mg Azithromycin 500 mg/ Sodium (Chloride) 250 mls @ 250 mls/hr IVPB DAILY [facility] PRN Reason: Protocol Last Admin: 06/01/18 09:52 Dose: 250 mls/hr Piperacillin Sod/Tazobactam Sod (Zosyn 3.375 Gm Iv Premix) 3.375 gm in 50 mls @ 100 mls/hr IVPB Q8H [facility] PRN Reason: Protocol Last Admin: 06/01/18 18:48 Dose: 100 mls/hr Lamotrigine (Lamictal) 400 mg PO DAILY [facility] Last Admin: 06/01/18 09:50 Dose: 400 mg Levothyroxine Sodium (Synthroid) 175 mcg PO DAILY@0630 [facility] Last Admin: 06/01/18 06:38 Dose: 175 mcg Montelukast Sodium (Singulair) 10 mg PO [facility] Last Admin: 05/31/18 21:56 Dose: 10 mg Niacin (Niacin) 1,000 mg PO DAILY [facility] Last Admin: 06/01/18 09:51 Dose: 1,000 mg Ptoaf-5-Tgnw Ethyl Esters (Lovaza) 1 gm PO BID [facility] Last Admin: 06/01/18 17:30 Dose: 1 gm Oxycodone/Acetaminophen (Percocet 5/325 Mg Tab) 1 tab PO Q4H PRN PRN Reason: Pain, moderate (4-7) Stop: 06/04/18 08:19 Last Admin: 06/01/18 18:53 Dose: 1 tab Oxycodone/Acetaminophen (Percocet 5/325 Mg Tab) 2 tab PO Q4H PRN PRN Reason: Pain, severe (8-10) Stop: 06/04/18 08:19 Last Admin: 06/01/18 16:40 Dose: 2 tab Quetiapine Fumarate (Seroquel Xr) 450 mg PO [facility] Last Admin: 05/31/18 21:57 Dose: 450 mg - Labs Labs: 06/01/18 06:36 06/01/18 06:36 PT 15.2 SECONDS (9.7-12.2) H 05/31/18 06:08 INR 1.4 05/31/18 06:08 APTT 28 SECONDS (21-34) 05/31/18 06:08 Attending/Attestation - Attestation I have personally seen and examined this patient.: Yes I have fully participated in the care of the patient.: Yes I have reviewed all pertinent clinical information, including history, physical exam and plan: Yes Notes (Text): Patient seen, examined and case discussed with day-time resident. Patient seen this afternoon post operative day 1. Patient underwent decortication and drain of empyema of left loculated pleural effusion yesterday. Prelim read from 2 tissue culture (2 culture swabs from left lung during OR) sent post-operative shows no growth. postoperative management per surgery. Surgery permits anticoagulation post-operative. Recommends out of bed to chair today. Will continue to monitor output. Dilaudid CUSTOMER CARE ASSOCIATE d/c; switch to Percocet may switch over to oxycodone given elevated LFTs. I spoke with patient's sister per request of the patient and updated her on her brother's hospitalization. Hemoglobin stable post-operative 9.5. Hyponatremia likely secondary to pain/SIADH given recent surgery. Continue to monitor. Assessment/Plan 1) Pneumonia with large left pleural effusion Mycoplasma Pneumoniae Assessment/Plan * monitor on telemetry * IR consult for thoracentesis-->unable to sample not enough * Pulmonary (Dr. Jaquez) on consult-->help appreciated * Cardiothoracic (Dr. Hughes) on case-->help appreciated * Patient had 2 tissue culture (2 culture swabs from left lung during OR) sent post-operative. * Intraoperative/post-operative management per surgery * CT Chest (05/28/18): moderate to large left pleural effusion with localized effusion at mid and upper portion of the left chest cavity compressing on the left lung. Foci of gas in the mid and lower portion of the left pleural effusion and possible abscess formation at th left lower pleural space or less likely in the left lung lower lobe. Compressive atelectasis of the left lung more prominent in the left lung lower lobe. Small ground glass opacities in the right lung may represent lung edema or congestion. Splenomegaly. * Azithromycin 500mg IVPB daily (active since 05/27/18) * Zosyn 3.375 IVPB Q8H (active since 05/28/18) * Duonebs PRN shortness of breathe * Advair 500/50 1 puff inhaled Q12H (Patient takes Symbicort as outpatient not available on hospital formulary) 2) Chronic Anemia Assessment/Plan * s/p 2 unit PRBC 05/30 prior to OR * HgB 8.1 * Reticulocyte index: 0.37-->hypoproliferation of reticulocytes * Iron: <10 * TIBC: 266 * Ferritin: 130 * pending B12 and folate * Patient reports he has completed colonoscopy in the past * Patient reports has not had bone marrow biopsy or any further workup * Stool occult blood Negative * pending hemoglobinopathy panel 3) Hyponatremia Assessment/Plan * possible SIADH/pain today 4) Lipid Disorder Assessment/Plan * Fenofibrate 145mg po HS * Niacin 1g po daily 5) Hypothyroidism Assessment/Plan * Synthroid 175mcg PO qAM * within normal 6) History of Bipolar Disorder * Reviewed medications with patient: * Patient sparingly takes Gabapentin 100mg * Seroquel XR 450mg po HS * Lamictal 400mg po daily * Hydroxazine 100mg HS (held due to increased QTc prolongation with azithromycin) 7) Asthma Assessment/Plan * Patient takes Symbicort as outpatient * Patient has not formally seen a lung doctor * Patient reports significant smoking history 8) Elevated INR Possible secondary Alcohol LIier Disease Assessment/Plan * Abdominal US (05/28/18): increased echogenicity of the hepatic parenchymal cortex suggestive for fatty infiltation versus hepatic parenchymal disease. Prominent liver and spleen as described above. Limited visualization of the pancreas. * Received FFP prior to OR. 9) Smoking History Assessment/Plan * Former smoker * Counselled cessation * Nicoderm patch daily 10) Leukocytosis Assessment/Plan * Blood culture (05/27/18): no growth after 4 days X2 * Sputum culture (05/27/18): Staph Aureus * F/u tissue culture from left lung * No growth prelim * Azithromycin 500mg IV Qdaily (active since 05/28/18) * Zosyn 3.375g IV Q8H (active since 05/28/18) 11) Transaminitis Assessment/Plan * Hepatitis panel: negative * Improving * Note: patient is on azithromycin and zosyn * Abdominal US (05/28/18): increased echogenicity of the hepatic parenchymal cortex suggestive for fatty infiltration versus hepatic parenchymal disease. prominent liver and spleen as above. limited visualized of the pancreas * prior hx of alcohol use 12) Prophylaxis * Lovenox 40mg subq daily * Protonix 40mg PO daily Disposition: Patient underwent thoracotomy and decoriation yesterday. Has one chest tube over left side of chest. Monitor outpatient. management per cardiothoracic surgery.. Follow-up 2 left lung tissue samples collected during OR.
--- NOTE | 2018-06-01 08:25 | CP.PCM.PN ---
Subjective - Date & Time of Evaluation Date of Evaluation: 06/01/18 Time of Evaluation: 07:20 - Subjective Subjective: Pt seen and examined this AM. No adverse events overnight. Objective - Vital Signs/Intake and Output Vital Signs (last 24 hours): Temp Pulse Resp BP Pulse Ox 98.2 F 99 H 20 132/86 98 06/01/18 07:00 06/01/18 07:00 06/01/18 07:00 06/01/18 07:00 06/01/18 07:00 Intake and Output: 06/01/18 06/01/18 06:59 18:59 Intake Total 1630 Output Total 1110 Balance 520 - Medications Medications: Current Medications Albuterol/Ipratropium (Duoneb 3 Mg/0.5 Mg (3 Ml) Ud) 3 ml INH RQ4 [facility] Last Admin: 06/01/18 04:10 Dose: Not Given Famotidine (Pepcid) 20 mg PO DAILY [facility] Last Admin: 05/31/18 09:37 Dose: Not Given Fenofibrate (Tricor) 145 mg PO QPM [facility] Last Admin: 05/31/18 17:18 Dose: 145 mg Furosemide (Lasix) 40 mg IVP ONCE PRN PRN Reason: Shortness of Breath Last Admin: 05/30/18 23:54 Dose: 40 mg Azithromycin 500 mg/ Sodium (Chloride) 250 mls @ 250 mls/hr IVPB DAILY [facility] PRN Reason: Protocol Last Admin: 05/31/18 13:29 Dose: 250 mls/hr Piperacillin Sod/Tazobactam Sod (Zosyn 3.375 Gm Iv Premix) 3.375 gm in 50 mls @ 100 mls/hr IVPB Q8H [facility] PRN Reason: Protocol Last Admin: 06/01/18 03:00 Dose: 100 mls/hr Lamotrigine (Lamictal) 400 mg PO DAILY [facility] Last Admin: 05/31/18 09:36 Dose: Not Given Levothyroxine Sodium (Synthroid) 175 mcg PO DAILY@0630 [facility] Last Admin: 06/01/18 06:38 Dose: 175 mcg Montelukast Sodium (Singulair) 10 mg PO HS [facility] Last Admin: 05/31/18 21:56 Dose: 10 mg Niacin (Niacin) 1,000 mg PO DAILY [facility] Last Admin: 05/31/18 09:37 Dose: Not Given Psiem-9-Qofs Ethyl Esters (Lovaza) 1 gm PO BID [facility] Last Admin: 05/31/18 17:18 Dose: 1 gm Oxycodone/Acetaminophen (Percocet 5/325 Mg Tab) 1 tab PO Q4H PRN PRN Reason: Pain, moderate (4-7) Stop: 06/04/18 08:19 Oxycodone/Acetaminophen (Percocet 5/325 Mg Tab) 2 tab PO Q4H PRN PRN Reason: Pain, severe (8-10) Stop: 06/04/18 08:19 Potassium Chloride (K-Dur 20 Meq Er Tab) 20 meq PO DAILY [facility] Quetiapine Fumarate (Seroquel Xr) 450 mg PO HS [facility] Last Admin: 05/31/18 21:57 Dose: 450 mg - Labs Labs: 06/01/18 06:36 06/01/18 06:36 PT 15.2 SECONDS (9.7-12.2) H 05/31/18 06:08 INR 1.4 05/31/18 06:08 APTT 28 SECONDS (21-34) 05/31/18 06:08
--- NOTE | 2018-06-01 08:34 | CP.PCM.PN ---
Subjective - Date & Time of Evaluation Date of Evaluation: 06/01/18 Time of Evaluation: 07:00 - Subjective Subjective: Patient seen and examined. No acute events over night. Denies fever/chills. Tolerating liquid diet. 220cc/24hr serosanguinous output from CT. No air leak noted. Objective - Vital Signs/Intake and Output Vital Signs (last 24 hours): Temp Pulse Resp BP Pulse Ox 98.2 F 99 H 20 132/86 98 06/01/18 07:00 06/01/18 07:00 06/01/18 07:00 06/01/18 07:00 06/01/18 07:00 Intake and Output: 06/01/18 06/01/18 06:59 18:59 Intake Total 1630 Output Total 1110 Balance 520 - Medications Medications: Current Medications Albuterol/Ipratropium (Duoneb 3 Mg/0.5 Mg (3 Ml) Ud) 3 ml INH RQ4 [facility] Last Admin: 06/01/18 04:10 Dose: Not Given Famotidine (Pepcid) 20 mg PO DAILY [facility] Last Admin: 05/31/18 09:37 Dose: Not Given Fenofibrate (Tricor) 145 mg PO QPM [facility] Last Admin: 05/31/18 17:18 Dose: 145 mg Furosemide (Lasix) 40 mg IVP ONCE PRN PRN Reason: Shortness of Breath Last Admin: 05/30/18 23:54 Dose: 40 mg Azithromycin 500 mg/ Sodium (Chloride) 250 mls @ 250 mls/hr IVPB DAILY [facility] PRN Reason: Protocol Last Admin: 05/31/18 13:29 Dose: 250 mls/hr Piperacillin Sod/Tazobactam Sod (Zosyn 3.375 Gm Iv Premix) 3.375 gm in 50 mls @ 100 mls/hr IVPB Q8H [facility] PRN Reason: Protocol Last Admin: 06/01/18 03:00 Dose: 100 mls/hr Lamotrigine (Lamictal) 400 mg PO DAILY [facility] Last Admin: 05/31/18 09:36 Dose: Not Given Levothyroxine Sodium (Synthroid) 175 mcg PO DAILY@0630 [facility] Last Admin: 06/01/18 06:38 Dose: 175 mcg Montelukast Sodium (Singulair) 10 mg PO HS [facility] Last Admin: 05/31/18 21:56 Dose: 10 mg Niacin (Niacin) 1,000 mg PO DAILY [facility] Last Admin: 05/31/18 09:37 Dose: Not Given Wfqhl-5-Pcgt Ethyl Esters (Lovaza) 1 gm PO BID [facility] Last Admin: 05/31/18 17:18 Dose: 1 gm Oxycodone/Acetaminophen (Percocet 5/325 Mg Tab) 1 tab PO Q4H PRN PRN Reason: Pain, moderate (4-7) Stop: 06/04/18 08:19 Oxycodone/Acetaminophen (Percocet 5/325 Mg Tab) 2 tab PO Q4H PRN PRN Reason: Pain, severe (8-10) Stop: 06/04/18 08:19 Potassium Chloride (K-Dur 20 Meq Er Tab) 20 meq PO DAILY [facility] Quetiapine Fumarate (Seroquel Xr) 450 mg PO HS [facility] Last Admin: 05/31/18 21:57 Dose: 450 mg - Labs Labs: 06/01/18 06:36 06/01/18 06:36 PT 15.2 SECONDS (9.7-12.2) H 05/31/18 06:08 INR 1.4 05/31/18 06:08 APTT 28 SECONDS (21-34) 05/31/18 06:08 - Constitutional Appears: No Acute Distress - Head Exam Head Exam: NORMOCEPHALIC - Eye Exam Eye Exam: Normal appearance - Respiratory Exam Respiratory Exam: NORMAL BREATHING PATTERN - GI/Abdominal Exam GI & Abdominal Exam: Soft - Neurological Exam Neurological Exam: Alert, Awake, Oriented x3 - Psychiatric Exam Psychiatric exam: Normal Mood - Skin Skin Exam: Dry, Intact, Warm Assessment and Plan - Assessment and Plan (Free Text) Assessment: 52M with left empyema s/p evacuation of empyema, decortication, and 36 Fr chest tube insertion Plan: Resume regular diet CXR reviewed; maintain CT to wall suction for at least one more day ABx per ID D/C [employer] Oral analgesics prn Patient must be out of bed to chair today DVT ppx D/w Dr. Ellen Sosa PGY3
[2018-06-01] MEDS: Omega-3-Acid Ethyl Esters 1 GM Cap PO SCH ×2 (09:51→17:30)
[2018-06-01] MEDS: Azithromycin 500 MG in Sodium Chloride 0.9% 250 ML IVPB SCH (09:52)
[2018-06-01] MEDS: Enoxaparin 40 mg Syringe SC SCH (09:52)
[2018-06-01] MEDS ORDERED: Potassium Chloride 20 mEq ER Tab PO SCH (10:00)
[2018-06-01 10:49] LABS: EOSINOPHIL 2 % (0-4); LYMPHOCYTE 6 % (20-40); MONOCYTE 8 % (0-10); MYELOCYTE 1 % (0-0); NEUTROPHIL 83 % (50-75); PLATELET ESTIMATE INCREASED (NORMAL); TOTAL CELLS COUNTED 100
[2018-06-01 10:50] LABS: ANISOCYTOSIS SLIGHT; TOXIC GRANULATION PRESENT
[2018-06-01 10:51] LABS: HYPOCHROMIC SLIGHT; LARGE PLATELETS PRESENT; POLYCHROMIC SLIGHT
--- NOTE | 2018-06-01 10:57 | RAD ---
Chest x-ray single frontal view History: Empyema. Comparison: 05/31/2018 Findings: Persistent moderate loculated left-sided effusion/empyema. Persistent prominent confluent consolidative changes in the left mid to lower lung zone. Right hilar prominence. Cardiomegaly. Degenerative changes in the spine. Biapical pleural thickening with upper lobe granulomatous changes. Impression: Persistent moderate loculated left-sided effusion/empyema. Persistent prominent confluent consolidative changes in the left mid to lower lung zone. Right hilar prominence. Cardiomegaly. Degenerative changes in the spine. Biapical pleural thickening with upper lobe granulomatous changes.
[2018-06-01] MEDS: Oxycodone/Acetaminophen 5/325 mg Tab PO PRN ×4 (12:10→21:44)
--- NOTE | 2018-06-01 19:31 | CP.PCM.CON ---
History of Present Illness - History of Present Illness History of Present Illness: dictated Past Patient History - Past Medical History & Family History Past Medical History?: Yes - Past Social History Smoking Status: Former Smoker - CARDIAC Hx Cardiac Disorders: Yes Hx Hypercholesterolemia: Yes - PULMONARY Hx Respiratory Disorders: No - NEUROLOGICAL Hx Neurological Disorder: No - HEENT Hx HEENT Problems: No - RENAL Hx Chronic Kidney Disease: No - ENDOCRINE/METABOLIC Hx Hypothyroidism: Yes - HEMATOLOGICAL/ONCOLOGICAL Hx Blood Disorders: No - INTEGUMENTARY Hx Dermatological Problems: No - MUSCULOSKELETAL/RHEUMATOLOGICAL Hx Falls: No - GASTROINTESTINAL Hx Gastrointestinal Disorders: No - GENITOURINARY/GYNECOLOGICAL Hx Genitourinary Disorders: No - PSYCHIATRIC Hx Substance Use: No - SURGICAL HISTORY Hx Surgeries: No - ANESTHESIA Hx Anesthesia: No Hx Anesthesia Reactions: No Hx Malignant Hyperthermia: No Has any member of the family had a problem w/ anesthesia?: No Meds Allergies/Adverse Reactions: Allergies Allergy/AdvReac Type Severity Reaction Status Date / Time lentils Allergy Verified 05/27/18 18:02 peanut Allergy Verified 05/27/18 18:02 peas Allergy Verified 05/27/18 18:02 soybean Allergy Verified 05/27/18 18:02 [place] Allergy Uncoded 05/27/18 18:02 - Medications Medications: Current Medications Albuterol/Ipratropium (Duoneb 3 Mg/0.5 Mg (3 Ml) Ud) 3 ml INH RQ4 [facility] Last Admin: 06/01/18 16:17 Dose: Not Given Enoxaparin Sodium (Lovenox) 40 mg SC DAILY [facility] Last Admin: 06/01/18 09:52 Dose: 40 mg Famotidine (Pepcid) 20 mg PO DAILY [facility] Last Admin: 06/01/18 09:49 Dose: 20 mg Fenofibrate (Tricor) 145 mg PO QPM [facility] Last Admin: 06/01/18 17:30 Dose: 145 mg Azithromycin 500 mg/ Sodium (Chloride) 250 mls @ 250 mls/hr IVPB DAILY [facility] PRN Reason: Protocol Last Admin: 06/01/18 09:52 Dose: 250 mls/hr Piperacillin Sod/Tazobactam Sod (Zosyn 3.375 Gm Iv Premix) 3.375 gm in 50 mls @ 100 mls/hr IVPB Q8H [facility] PRN Reason: Protocol Last Admin: 06/01/18 18:48 Dose: 100 mls/hr Lamotrigine (Lamictal) 400 mg PO DAILY [facility] Last Admin: 06/01/18 09:50 Dose: 400 mg Levothyroxine Sodium (Synthroid) 175 mcg PO DAILY@0630 [facility] Last Admin: 06/01/18 06:38 Dose: 175 mcg Montelukast Sodium (Singulair) 10 mg PO [facility] Last Admin: 05/31/18 21:56 Dose: 10 mg Niacin (Niacin) 1,000 mg PO DAILY [facility] Last Admin: 06/01/18 09:51 Dose: 1,000 mg Zfcpg-7-[id number] Ethyl Esters (Lovaza) 1 gm PO BID [facility] Last Admin: 06/01/18 17:30 Dose: 1 gm Oxycodone/Acetaminophen (Percocet 5/325 Mg Tab) 1 tab PO Q4H PRN PRN Reason: Pain, moderate (4-7) Stop: 06/04/18 08:19 Last Admin: 06/01/18 18:53 Dose: 1 tab Oxycodone/Acetaminophen (Percocet 5/325 Mg Tab) 2 tab PO Q4H PRN PRN Reason: Pain, severe (8-10) Stop: 06/04/18 08:19 Last Admin: 06/01/18 16:40 Dose: 2 tab Quetiapine Fumarate (Seroquel Xr) 450 mg PO [facility] Last Admin: 05/31/18 21:57 Dose: 450 mg Results - Vital Signs Recent Vital Signs: Last Vital Signs Temp 97.3 F L 06/01/18 15:20 Pulse 98 H 06/01/18 16:00 Resp 20 06/01/18 15:20 BP 115/78 06/01/18 15:20 Pulse Ox 97 06/01/18 15:20 - Labs Result Diagrams: 06/01/18 06:36 06/01/18 06:36 Labs: Laboratory Results - last 24 hr 05/30/18 06/01/18 06/01/18 16:44 06:36 06:36 WBC 11.6 H RBC 3.62 L Hgb 9.5 L Hct 29.1 L MCV 80.3 MCH 26.3 L MCHC 32.7 L RDW 17.7 H Plt Count 549 H MPV 6.4 L Neut % (Auto) 83.0 H Lymph % (Auto) 7.0 L [place] % (Auto) 8.1 Eos % (Auto) 1.6 Baso % (Auto) 0.3 Neut # (Auto) 9.6 H Lymph # (Auto) 0.8 L [place] # (Auto) 0.9 H Eos # (Auto) 0.2 Baso # (Auto) 0.0 Neutrophils % (Manual) 83 H Lymphocytes % (Manual) 6 L Monocytes % (Manual) 8 Eosinophils % (Manual) 2 Myelocytes % 1 H Toxic Granulation Present Platelet Estimate Increased H Large Platelets Present Polychromasia Slight Hypochromasia (manual) Slight Anisocytosis (manual) Slight Hemoglobinopathy Red Blood Count 2.87 L Hemoglobinopathy Hct 24.3 L Hemoglobinopathy Hgb 7.2 L Hemoglobinopathy MCV 84.7 Hemoglobinopathy MCH 25.2 L Hemoglobinopathy RDW 19.6 H Sodium 131 L Potassium 3.5 L Chloride 97 L Carbon Dioxide 28 Anion Gap 10 BUN 7 L Creatinine 0.6 L Est GFR ( Amer) > 60 Est GFR (Non-Af Amer) > 60 Random Glucose 97 Calcium 7.7 L Phosphorus 2.8 Magnesium 1.6 Total Bilirubin 0.7 AST 35 ALT 87 H D Alkaline Phosphatase 122 Total Protein 5.0 L Albumin 2.2 L Globulin 2.8 Albumin/Globulin Ratio 0.8 L
--- NOTE | 2018-06-01 20:53 | CP.PCM.PN ---
Subjective - Date & Time of Evaluation Date of Evaluation: 05/31/18 Time of Evaluation: 18:00 - Subjective Subjective: has some chest pian s/p CT surgery Objective - Vital Signs/Intake and Output Vital Signs (last 24 hours): Temp Pulse Resp BP Pulse Ox 97.3 F L 98 H 20 115/78 97 06/01/18 15:20 06/01/18 16:00 06/01/18 15:20 06/01/18 15:20 06/01/18 15:20 Intake and Output: 06/01/18 06/02/18 18:59 06:59 Intake Total 750 Output Total 590 Balance 160 - Medications Medications: Current Medications Albuterol/Ipratropium (Duoneb 3 Mg/0.5 Mg (3 Ml) Ud) 3 ml INH RQ4 [facility] Last Admin: 06/01/18 20:49 Dose: Not Given Enoxaparin Sodium (Lovenox) 40 mg SC DAILY [facility] Last Admin: 06/01/18 09:52 Dose: 40 mg Famotidine (Pepcid) 20 mg PO DAILY [facility] Last Admin: 06/01/18 09:49 Dose: 20 mg Fenofibrate (Tricor) 145 mg PO QPM [facility] Last Admin: 06/01/18 17:30 Dose: 145 mg Azithromycin 500 mg/ Sodium (Chloride) 250 mls @ 250 mls/hr IVPB DAILY [facility] PRN Reason: Protocol Last Admin: 06/01/18 09:52 Dose: 250 mls/hr Piperacillin Sod/Tazobactam Sod (Zosyn 3.375 Gm Iv Premix) 3.375 gm in 50 mls @ 100 mls/hr IVPB Q8H [facility] PRN Reason: Protocol Last Admin: 06/01/18 18:48 Dose: 100 mls/hr Lamotrigine (Lamictal) 400 mg PO DAILY [facility] Last Admin: 06/01/18 09:50 Dose: 400 mg Levothyroxine Sodium (Synthroid) 175 mcg PO DAILY@0630 [facility] Last Admin: 06/01/18 06:38 Dose: 175 mcg Montelukast Sodium (Singulair) 10 mg PO HS [facility] Last Admin: 05/31/18 21:56 Dose: 10 mg Niacin (Niacin) 1,000 mg PO DAILY [facility] Last Admin: 06/01/18 09:51 Dose: 1,000 mg Tcyey-3-Inch Ethyl Esters (Lovaza) 1 gm PO BID [facility] Last Admin: 06/01/18 17:30 Dose: 1 gm Oxycodone/Acetaminophen (Percocet 5/325 Mg Tab) 1 tab PO Q4H PRN PRN Reason: Pain, moderate (4-7) Stop: 06/04/18 08:19 Last Admin: 06/01/18 18:53 Dose: 1 tab Oxycodone/Acetaminophen (Percocet 5/325 Mg Tab) 2 tab PO Q4H PRN PRN Reason: Pain, severe (8-10) Stop: 06/04/18 08:19 Last Admin: 06/01/18 16:40 Dose: 2 tab Quetiapine Fumarate (Seroquel Xr) 450 mg PO HS [facility] Last Admin: 05/31/18 21:57 Dose: 450 mg - Labs Labs: 06/01/18 06:36 06/01/18 06:36 PT 15.2 SECONDS (9.7-12.2) H 05/31/18 06:08 INR 1.4 05/31/18 06:08 APTT 28 SECONDS (21-34) 05/31/18 06:08 - Head Exam Head Exam: ATRAUMATIC - Eye Exam Eye Exam: Normal appearance - ENT Exam ENT Exam: Mucous Membranes Dry - Respiratory Exam Respiratory Exam: NORMAL BREATHING PATTERN - Cardiovascular Exam Cardiovascular Exam: +S1, +S2 - GI/Abdominal Exam GI & Abdominal Exam: Normal Bowel Sounds Assessment and Plan (1) Cavitary lesion of lung Assessment & Plan: appears to be infection related given empyema f/u pathology outpatient repeat imaging to document resolution Status: Acute (2) Anemia Assessment & Plan: chronic disease from infection f/u hgb electropheresis Status: Acute
--- NOTE | 2018-06-01 20:54 | CP.PCM.PN ---
Subjective - Date & Time of Evaluation Date of Evaluation: 06/01/18 Time of Evaluation: 19:00 - Subjective Subjective: No complaints. Objective - Vital Signs/Intake and Output Vital Signs (last 24 hours): Temp Pulse Resp BP Pulse Ox 97.3 F L 98 H 20 115/78 97 06/01/18 15:20 06/01/18 16:00 06/01/18 15:20 06/01/18 15:20 06/01/18 15:20 Intake and Output: 06/01/18 06/02/18 18:59 06:59 Intake Total 750 Output Total 590 Balance 160 - Medications Medications: Current Medications Albuterol/Ipratropium (Duoneb 3 Mg/0.5 Mg (3 Ml) Ud) 3 ml INH RQ4 [facility] Last Admin: 06/01/18 20:49 Dose: Not Given Enoxaparin Sodium (Lovenox) 40 mg SC DAILY [facility] Last Admin: 06/01/18 09:52 Dose: 40 mg Famotidine (Pepcid) 20 mg PO DAILY [facility] Last Admin: 06/01/18 09:49 Dose: 20 mg Fenofibrate (Tricor) 145 mg PO QPM [facility] Last Admin: 06/01/18 17:30 Dose: 145 mg Azithromycin 500 mg/ Sodium (Chloride) 250 mls @ 250 mls/hr IVPB DAILY [facility] PRN Reason: Protocol Last Admin: 06/01/18 09:52 Dose: 250 mls/hr Piperacillin Sod/Tazobactam Sod (Zosyn 3.375 Gm Iv Premix) 3.375 gm in 50 mls @ 100 mls/hr IVPB Q8H [facility] PRN Reason: Protocol Last Admin: 06/01/18 18:48 Dose: 100 mls/hr Lamotrigine (Lamictal) 400 mg PO DAILY [facility] Last Admin: 06/01/18 09:50 Dose: 400 mg Levothyroxine Sodium (Synthroid) 175 mcg PO DAILY@0630 [facility] Last Admin: 06/01/18 06:38 Dose: 175 mcg Montelukast Sodium (Singulair) 10 mg PO HS [facility] Last Admin: 05/31/18 21:56 Dose: 10 mg Niacin (Niacin) 1,000 mg PO DAILY [facility] Last Admin: 06/01/18 09:51 Dose: 1,000 mg Aewxa-3-Ugpg Ethyl Esters (Lovaza) 1 gm PO BID [facility] Last Admin: 06/01/18 17:30 Dose: 1 gm Oxycodone/Acetaminophen (Percocet 5/325 Mg Tab) 1 tab PO Q4H PRN PRN Reason: Pain, moderate (4-7) Stop: 06/04/18 08:19 Last Admin: 06/01/18 18:53 Dose: 1 tab Oxycodone/Acetaminophen (Percocet 5/325 Mg Tab) 2 tab PO Q4H PRN PRN Reason: Pain, severe (8-10) Stop: 06/04/18 08:19 Last Admin: 06/01/18 16:40 Dose: 2 tab Quetiapine Fumarate (Seroquel Xr) 450 mg PO [facility] Last Admin: 05/31/18 21:57 Dose: 450 mg - Labs Labs: 06/01/18 06:36 06/01/18 06:36 PT 15.2 SECONDS (9.7-12.2) H 05/31/18 06:08 INR 1.4 05/31/18 06:08 APTT 28 SECONDS (21-34) 05/31/18 06:08 - Head Exam Head Exam: ATRAUMATIC - Eye Exam Eye Exam: Normal appearance - ENT Exam ENT Exam: Mucous Membranes Dry - Respiratory Exam Respiratory Exam: NORMAL BREATHING PATTERN - Cardiovascular Exam Cardiovascular Exam: +S1, +S2 - GI/Abdominal Exam GI & Abdominal Exam: Normal Bowel Sounds Assessment and Plan (1) Cavitary lesion of lung Assessment & Plan: appears to be infection related given empyema f/u pathology outpatient repeat imaging to document resolution Status: Acute (2) Anemia Assessment & Plan: chronic disease from infection f/u hgb electropheresis Status: Acute
--- NOTE | 2018-06-01 21:05 | CP.PCM.PN ---
Subjective - Date & Time of Evaluation Date of Evaluation: 06/01/18 Time of Evaluation: 18:00 - Subjective Subjective: patient seen and examined Status post VATS, decortication and chest tube insertion Sputum positive for staph Mycoplasma IgM positive Patient denies cough over denies fever chills, Complaining of pain and chest tube insertion site Objective - Vital Signs/Intake and Output Vital Signs (last 24 hours): Temp Pulse Resp BP Pulse Ox 97.3 F L 98 H 20 115/78 97 06/01/18 15:20 06/01/18 16:00 06/01/18 15:20 06/01/18 15:20 06/01/18 15:20 Intake and Output: 06/01/18 06/02/18 18:59 06:59 Intake Total 750 Output Total 590 Balance 160 - Medications Medications: Current Medications Albuterol/Ipratropium (Duoneb 3 Mg/0.5 Mg (3 Ml) Ud) 3 ml INH RQ4 [facility] Last Admin: 06/01/18 20:49 Dose: Not Given Enoxaparin Sodium (Lovenox) 40 mg SC DAILY [facility] Last Admin: 06/01/18 09:52 Dose: 40 mg Famotidine (Pepcid) 20 mg PO DAILY [facility] Last Admin: 06/01/18 09:49 Dose: 20 mg Fenofibrate (Tricor) 145 mg PO QPM [facility] Last Admin: 06/01/18 17:30 Dose: 145 mg Azithromycin 500 mg/ Sodium (Chloride) 250 mls @ 250 mls/hr IVPB DAILY [facility] PRN Reason: Protocol Last Admin: 06/01/18 09:52 Dose: 250 mls/hr Piperacillin Sod/Tazobactam Sod (Zosyn 3.375 Gm Iv Premix) 3.375 gm in 50 mls @ 100 mls/hr IVPB Q8H [facility] PRN Reason: Protocol Last Admin: 06/01/18 18:48 Dose: 100 mls/hr Vancomycin/Sodium Chloride (Vancomycin 1 Gm/Ns 200 Ml) 1 gm in 200 mls @ 133 mls/hr IVPB Q12H [facility] PRN Reason: Protocol Stop: 06/06/18 21:16 Lamotrigine (Lamictal) 400 mg PO DAILY [facility] Last Admin: 06/01/18 09:50 Dose: 400 mg Levothyroxine Sodium (Synthroid) 175 mcg PO DAILY@0630 [facility] Last Admin: 06/01/18 06:38 Dose: 175 mcg Montelukast Sodium (Singulair) 10 mg PO [facility] Last Admin: 05/31/18 21:56 Dose: 10 mg Niacin (Niacin) 1,000 mg PO DAILY [facility] Last Admin: 06/01/18 09:51 Dose: 1,000 mg Lreqg-6-Zzmg Ethyl Esters (Lovaza) 1 gm PO BID [facility] Last Admin: 06/01/18 17:30 Dose: 1 gm Oxycodone/Acetaminophen (Percocet 5/325 Mg Tab) 1 tab PO Q4H PRN PRN Reason: Pain, moderate (4-7) Stop: 06/04/18 08:19 Last Admin: 06/01/18 18:53 Dose: 1 tab Oxycodone/Acetaminophen (Percocet 5/325 Mg Tab) 2 tab PO Q4H PRN PRN Reason: Pain, severe (8-10) Stop: 06/04/18 08:19 Last Admin: 06/01/18 16:40 Dose: 2 tab Quetiapine Fumarate (Seroquel Xr) 450 mg PO [facility] Last Admin: 05/31/18 21:57 Dose: 450 mg - Labs Labs: 06/01/18 06:36 06/01/18 06:36 PT 15.2 SECONDS (9.7-12.2) H 05/31/18 06:08 INR 1.4 05/31/18 06:08 APTT 28 SECONDS (21-34) 05/31/18 06:08 - Head Exam Head Exam: ATRAUMATIC, NORMOCEPHALIC - ENT Exam ENT Exam: Mucous Membranes Moist - Neck Exam Neck Exam: Normal Inspection - Respiratory Exam Respiratory Exam: Decreased Breath Sounds - Cardiovascular Exam Cardiovascular Exam: REGULAR RHYTHM - GI/Abdominal Exam GI & Abdominal Exam: Soft, Normal Bowel Sounds - Extremities Exam Extremities Exam: Normal Inspection Assessment and Plan (1) Pleural effusion Assessment & Plan: Status post decortication rule out empyema continue azithromycin for mycoplasma infection Vancomycin for staph in the sputum Followup pathology report Followup culture and sensitivity Status: Acute (2) Cavitary lesion of lung Status: Acute (3) Pneumonia Status: Acute
[2018-06-01] MEDS: QUEtiapine 150 mg XR Tab PO SCH (21:43)
[2018-06-01] MEDS: Vancomycin 1 gm/NS 200 ml 1 GM/200 ML BAG IVPB SCH (21:48)
[2018-06-02] MEDS: Albuterol-Ipratrop 3 mg / 0.5 (3 ml) UD INH SCH ×6 (00:51→19:15)
--- NOTE | 2018-06-02 00:53 | CP.PCM.PN ---
<Kt Page L - Last Filed: 06/02/18 00:54> Subjective - Date & Time of Evaluation Date of Evaluation: 06/02/18 Time of Evaluation: 00:37 - Subjective Subjective: Resident Note for Hospitalist Service Patient examined at bedside. He reports feeling much better s/p chest tube placement. He also states that he had some dysuria after the procedure, however this has resolved. He denies shortness of breath at this time. States he is eating and drinking well. Denies headache, dizziness, chest pain, abdominal pain , changes in bowel movements. Objective - Vital Signs/Intake and Output Vital Signs (last 24 hours): Temp Pulse Resp BP Pulse Ox 97.3 F L 98 H 20 115/78 97 06/01/18 15:20 06/01/18 16:00 06/01/18 15:20 06/01/18 15:20 06/01/18 15:20 Intake and Output: 06/01/18 06/02/18 18:59 06:59 Intake Total 750 1180 Output Total 590 1220 Balance 160 -40 - Medications Medications: Current Medications Albuterol/Ipratropium (Duoneb 3 Mg/0.5 Mg (3 Ml) Ud) 3 ml INH RQ4 [facility] Last Admin: 06/01/18 20:49 Dose: Not Given Enoxaparin Sodium (Lovenox) 40 mg SC DAILY [facility] Last Admin: 06/01/18 09:52 Dose: 40 mg Famotidine (Pepcid) 20 mg PO DAILY [facility] Last Admin: 06/01/18 09:49 Dose: 20 mg Fenofibrate (Tricor) 145 mg PO QPM [facility] Last Admin: 06/01/18 17:30 Dose: 145 mg Azithromycin 500 mg/ Sodium (Chloride) 250 mls @ 250 mls/hr IVPB DAILY [facility] PRN Reason: Protocol Last Admin: 06/01/18 09:52 Dose: 250 mls/hr Piperacillin Sod/Tazobactam Sod (Zosyn 3.375 Gm Iv Premix) 3.375 gm in 50 mls @ 100 mls/hr IVPB Q8H [facility] PRN Reason: Protocol Last Admin: 06/01/18 18:48 Dose: 100 mls/hr Vancomycin/Sodium Chloride (Vancomycin 1 Gm/Ns 200 Ml) 1 gm in 200 mls @ 133 mls/hr IVPB Q12H [facility] PRN Reason: Protocol Stop: 06/06/18 21:16 Last Admin: 06/01/18 21:48 Dose: 133 mls/hr Lamotrigine (Lamictal) 400 mg PO DAILY [facility] Last Admin: 06/01/18 09:50 Dose: 400 mg Levothyroxine Sodium (Synthroid) 175 mcg PO DAILY@0630 [facility] Last Admin: 06/01/18 06:38 Dose: 175 mcg Montelukast Sodium (Singulair) 10 mg PO [facility] Last Admin: 06/01/18 21:43 Dose: 10 mg Niacin (Niacin) 1,000 mg PO DAILY [facility] Last Admin: 06/01/18 09:51 Dose: 1,000 mg Igzro-2-Fnmz Ethyl Esters (Lovaza) 1 gm PO BID [facility] Last Admin: 06/01/18 17:30 Dose: 1 gm Oxycodone/Acetaminophen (Percocet 5/325 Mg Tab) 1 tab PO Q4H PRN PRN Reason: Pain, moderate (4-7) Stop: 06/04/18 08:19 Last Admin: 06/01/18 18:53 Dose: 1 tab Oxycodone/Acetaminophen (Percocet 5/325 Mg Tab) 2 tab PO Q4H PRN PRN Reason: Pain, severe (8-10) Stop: 06/04/18 08:19 Last Admin: 06/01/18 21:44 Dose: 2 tab Quetiapine Fumarate (Seroquel Xr) 450 mg PO [facility] Last Admin: 06/01/18 21:43 Dose: 450 mg - Labs Labs: 06/01/18 06:36 06/01/18 06:36 PT 15.2 SECONDS (9.7-12.2) H 05/31/18 06:08 INR 1.4 05/31/18 06:08 APTT 28 SECONDS (21-34) 05/31/18 06:08 - Additional Findings Additional findings: - Constitutional Appears: Non-toxic, No Acute Distress - Head Exam Head Exam: ATRAUMATIC, NORMOCEPHALIC - Eye Exam Eye Exam: EOMI, Normal appearance - ENT Exam ENT Exam: Mucous Membranes Moist - Neck Exam Neck Exam: Normal Inspection - Respiratory Exam Respiratory Exam: Decreased Breath Sounds (improved), NORMAL BREATHING PATTERN. absent: Rhonchi, Wheezes, Respiratory Distress - Cardiovascular Exam Cardiovascular Exam: REGULAR RHYTHM, +S1, +S2 - GI/Abdominal Exam GI & Abdominal Exam: Soft, Normal Bowel Sounds. absent: Firm, Rigid, Tenderness - Extremities Exam Extremities Exam: Normal Capillary Refill, Normal Inspection. absent: Tenderness - Back Exam Back Exam: NORMAL INSPECTION - Neurological Exam Neurological Exam: Alert, Awake, Oriented x3 - Psychiatric Exam Psychiatric exam: Normal Affect, Normal Mood - Skin Skin Exam: Dry, Intact, Pallor Assessment and Plan - Assessment and Plan (Free Text) Plan: Pneumonia with large left pleural effusion - Azithromycin 500 mg IVPB daily - Zosyn 3.375 gm IVPB Q8H - Vancomycin 1 gm IVPB Q12H - 05/27 blood cultures negative x2 - Chest CT shows moderate to large left pleural effusion with localized effusion at the mid and upper portion of the left chest cavity compressing on the left lung. Foci of gas in mid and lower portion of left pleural effusion and possible abscess formation at left lower pleural space or less likely in left lung lower lobe as described above. Compressive atelectasis of left lung more prominent in left lower lobe. Small ground-glass opacities seen in right lung may represent lung edema or congestion. Splenomegaly. - Mycoplasma IgM positive - IR consulted. Recs appreciated. - Surgery consulted. Recs appreciated. - s/p thoracotomy with decortication and empyema evacuation - 05/31 tissue cultures preliminary read no growth x2 Transaminitis - Hepatitis panel negative - HIV negative - Abdominal ultrasound shows increased echogenicity of the hepatic parenchymal cortex suggestive for fatty infiltration versus hepatic parenchymal disease. prominent liver and spleen as above. limited visualized of the pancreas. Diarrhea - Followup stool cultures, fecal leukocytes Anemia - Hgb 8.1, Hct 25.4 - FOBT negative - Iron <10, TIBC 266, % saturation 3.75, ferritin 130.0 - Retic count 0.9 - B12 523, folate 13.3 Hyponatremia - Continue to monitor HLD - Fenofibrate 145mg po HS - Niacin 1g po daily Hypothyroidism - Synthroid 175mcg daily - TSH 0.75, T4 1.31 Bipolar Disorder - Gabapentin 600mg po TID, 1200mg po HS held - Seroquel 450mg po HS - Lamictal 400mg po daily - Hydroxazine 100mg HS (held due to increased QTc prolongation with azithromycin ) Prophylaxis - Lovenox 40 mg SC daily - Pepcid 20mg po daily Kt Page PGY-1 <Dodie Montgomery V - Last Filed: 06/02/18 10:44> Objective - Vital Signs/Intake and Output Vital Signs (last 24 hours): Temp Pulse Resp BP Pulse Ox 98.1 F 88 18 104/68 99 06/02/18 07:40 06/02/18 07:40 06/02/18 07:40 06/02/18 07:40 06/02/18 07:40 Intake and Output: 06/02/18 06/02/18 06:59 18:59 Intake Total 1815 Output Total 1640 Balance 175 - Medications Medications: Current Medications Albuterol/Ipratropium (Duoneb 3 Mg/0.5 Mg (3 Ml) Ud) 3 ml INH RQ4 [facility] Last Admin: 06/02/18 08:07 Dose: Not Given Enoxaparin Sodium (Lovenox) 40 mg SC DAILY [facility] Last Admin: 06/01/18 09:52 Dose: 40 mg Famotidine (Pepcid) 20 mg PO DAILY [facility] Last Admin: 06/01/18 09:49 Dose: 20 mg Fenofibrate (Tricor) 145 mg PO QPM [facility] Last Admin: 06/01/18 17:30 Dose: 145 mg Azithromycin 500 mg/ Sodium (Chloride) 250 mls @ 250 mls/hr IVPB DAILY [facility] PRN Reason: Protocol Last Admin: 06/01/18 09:52 Dose: 250 mls/hr Piperacillin Sod/Tazobactam Sod (Zosyn 3.375 Gm Iv Premix) 3.375 gm in 50 mls @ 100 mls/hr IVPB Q8H [facility] PRN Reason: Protocol Last Admin: 06/02/18 02:41 Dose: 100 mls/hr Vancomycin/Sodium Chloride (Vancomycin 1 Gm/Ns 200 Ml) 1 gm in 200 mls @ 133 mls/hr IVPB Q12H [facility] PRN Reason: Protocol Stop: 06/06/18 21:16 Last Admin: 06/02/18 09:02 Dose: 133 mls/hr Lamotrigine (Lamictal) 400 mg PO DAILY [facility] Last Admin: 06/01/18 09:50 Dose: 400 mg Levothyroxine Sodium (Synthroid) 175 mcg PO DAILY@0630 [facility] Last Admin: 06/02/18 05:31 Dose: 175 mcg Montelukast Sodium (Singulair) 10 mg PO [facility] Last Admin: 06/01/18 21:43 Dose: 10 mg Niacin (Niacin) 1,000 mg PO DAILY [facility] Last Admin: 06/01/18 09:51 Dose: 1,000 mg Iasff-5-Dawx Ethyl Esters (Lovaza) 1 gm PO BID [facility] Last Admin: 06/01/18 17:30 Dose: 1 gm Oxycodone/Acetaminophen (Percocet 5/325 Mg Tab) 1 tab PO Q4H PRN PRN Reason: Pain, moderate (4-7) Stop: 06/04/18 08:19 Last Admin: 06/02/18 05:31 Dose: 1 tab Oxycodone/Acetaminophen (Percocet 5/325 Mg Tab) 2 tab PO Q4H PRN PRN Reason: Pain, severe (8-10) Stop: 06/04/18 08:19 Last Admin: 06/01/18 21:44 Dose: 2 tab Quetiapine Fumarate (Seroquel Xr) 450 mg PO [facility] Last Admin: 06/01/18 21:43 Dose: 450 mg - Labs Labs: 06/02/18 08:21 06/02/18 08:21 PT 15.2 SECONDS (9.7-12.2) H 05/31/18 06:08 INR 1.4 05/31/18 06:08 APTT 28 SECONDS (21-34) 05/31/18 06:08 Attending/Attestation - Attestation I have personally seen and examined this patient.: Yes I have fully participated in the care of the patient.: Yes I have reviewed all pertinent clinical information, including history, physical exam and plan: Yes Notes (Text): Patient seen, examined and case discussed with day-time resident. Patient seen this morning post operative day 2. Patient underwent decortication and drain of empyema of left loculated pleural effusion two days ago. Prelim read from 2 tissue culture (2 culture swabs from left lung during OR) sent post -operative shows no growth. postoperative management per surgery. Patient reports mild flatus but has not had a bowel movement since the procedure. Patient reports he normally does not go regularly. Hemoglobin stable post-operative 9.2. White has normalized. Afebrile. Blood cultures are final normal. Repeat chest xray: persistent moderate to large loculated left pleural effusuon/ empyema. Left pleural drain in place. Consolidative changes at the left lung base--->We will need to f/u with cardiothoracic surgery. The prelim reads show no growth. It is unclear about what was sampled during OR. Would like clarification from surgery please. Also if its possible to send additional samples for pleural studies and cytology would appreciate. Assessment/Plan 1) Pneumonia with large left pleural effusion Mycoplasma Pneumoniae Assessment/Plan * monitor on telemetry * IR consult for thoracentesis-->unable to sample not enough * Pulmonary (Dr. Jaquez) on consult-->help appreciated * Cardiothoracic (Dr. Hughes) on case-->help appreciated * Patient had 2 tissue culture (2 culture swabs from left lung during OR) sent post-operative. * Intraoperative/post-operative management per surgery * Lung Prelim #1: prelim no growth * Lung Prelim #2: prelim no growth * CT Chest (05/28/18): moderate to large left pleural effusion with localized effusion at mid and upper portion of the left chest cavity compressing on the left lung. Foci of gas in the mid and lower portion of the left pleural effusion and possible abscess formation at th left lower pleural space or less likely in the left lung lower lobe. Compressive atelectasis of the left lung more prominent in the left lung lower lobe. Small ground glass opacities in the right lung may represent lung edema or congestion. Splenomegaly. * Chest xray (06/02/18): persistent moderate to large loculated left pleural effusion/empyema * Azithromycin 500mg IVPB daily (active since 05/27/18) * Zosyn 3.375 IVPB Q8H (active since 05/28/18) * Duonebs PRN shortness of breathe * Advair 500/50 1 puff inhaled Q12H (Patient takes Symbicort as outpatient not available on hospital formulary) 2) Chronic Anemia Assessment/Plan * s/p 2 unit PRBC 05/30 prior to OR * HgB 9.2 * Reticulocyte index: 0.37-->hypoproliferation of reticulocytes * Iron: <10 * TIBC: 266 * Ferritin: 130 * pending B12 and folate * Patient reports he has completed colonoscopy in the past * Patient reports has not had bone marrow biopsy or any further workup * Stool occult blood Negative * pending hemoglobinopathy panel 3) Hyponatremia Assessment/Plan * Normalized 4) Lipid Disorder Assessment/Plan * Fenofibrate 145mg po HS * Niacin 1g po daily 5) Hypothyroidism Assessment/Plan * Synthroid 175mcg PO qAM * within normal 6) History of Bipolar Disorder * Reviewed medications with patient: * Patient sparingly takes Gabapentin 100mg * Seroquel XR 450mg po HS * Lamictal 400mg po daily * Hydroxazine 100mg HS (held due to increased QTc prolongation with azithromycin) 7) Asthma Assessment/Plan * Patient takes Symbicort as outpatient * Patient has not formally seen a lung doctor * Patient reports significant smoking history 8) Elevated INR Possible secondary Alcohol LIier Disease Assessment/Plan * Abdominal US (05/28/18): increased echogenicity of the hepatic parenchymal cortex suggestive for fatty infiltation versus hepatic parenchymal disease. Prominent liver and spleen as described above. Limited visualization of the pancreas. * Received FFP prior to OR. 9) Smoking History Assessment/Plan * Former smoker * Counselled cessation * Nicoderm patch daily 10) Leukocytosis Assessment/Plan * Blood culture (05/27/18): no growth after 5 days X2 * Sputum culture (05/27/18): Staph Aureus * F/u tissue culture from left lung * No growth prelim * Azithromycin 500mg IV Qdaily (active since 05/28/18) * Zosyn 3.375g IV Q8H (active since 05/28/18) 11) Transaminitis Assessment/Plan * Hepatitis panel: negative * Improving * Note: patient is on azithromycin and zosyn * Abdominal US (05/28/18): increased echogenicity of the hepatic parenchymal cortex suggestive for fatty infiltration versus hepatic parenchymal disease. prominent liver and spleen as above. limited visualized of the pancreas * prior hx of alcohol use 12) Prophylaxis * Lovenox 40mg subq daily * Protonix 40mg PO daily Disposition: Patient underwent thoracotomy and decoriation two days ago. Has one chest tube over left side of chest. Monitor outpatient. management per cardiothoracic surgery.. Follow-up 2 left lung tissue samples collected during OR.
[2018-06-02] MEDS: Piperacill/Tazo 3.375gm in Dex 3.375 GM/50 ML BAG IVPB SCH ×4 (02:41→18:26)
[2018-06-02] MEDS: Levothyroxine 175 MCG TAB PO SCH (05:31)
[2018-06-02] MEDS: Oxycodone/Acetaminophen 5/325 mg Tab PO PRN ×3 (05:31→21:11)
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
[2018-06-02 08:35] LABS: BASO % 0.4 % (0.0-2.0); EOS # 0.3 K/uL (0.0-0.7); EOS % 3.3 % (0.0-4.0); HEMOGLOBIN 9.2 g/dL (12.0-18.0); LYMPH # 0.6 K/uL (1.0-4.3); LYMPH % 5.7 % (20.0-40.0); MEAN CELL VOLUME 81.2 fL (80.0-94.0); MEAN CORPUSCULAR HEMOGLOBIN 26.7 pg (27.0-31.0); MEAN CORPUSCULAR HGB CONC 32.8 g/dL (33.0-37.0); MEAN PLATELET VOLUME 6.9 fL (7.2-11.7); MONO # 0.8 K/uL (0.0-0.8); MONO % 7.6 % (0.0-10.0); NEUT # 8.3 K/uL (1.8-7.0); PLATELET COUNT 525 K/uL (130-400); RBC 3.45 Mil/uL (4.40-5.90); RED CELL DISTRIBUTION WIDTH 17.8 % (11.5-14.5)
[2018-06-02] MEDS: Vancomycin 1 gm/NS 200 ml 1 GM/200 ML BAG IVPB SCH ×2 (09:02→22:10)
[2018-06-02 09:14] LABS: ALB/GLOB RATIO 0.7 (1.0-2.1); ALBUMIN 2.1 g/dL (3.5-5.0); ALT/SGPT 65 U/L (21-72); AST/SGOT 46 U/L (17-59); BLOOD UREA NITROGEN 8 mg/dL (9-20); CALCIUM 7.9 mg/dl (8.6-10.4); GFR AFRICAN-AMERICAN > 60; GFR NON-AFRICAN AMERICAN > 60
[2018-06-02 09:52] LABS: EOSINOPHIL 3 % (0-4); LYMPHOCYTE 7 % (20-40); MONOCYTE 6 % (0-10); NEUTROPHIL 84 % (50-75); PLATELET ESTIMATE INCREASED (NORMAL); TOTAL CELLS COUNTED 100
[2018-06-02 09:53] LABS: ANISOCYTOSIS SLIGHT; HYPOCHROMIC SLIGHT; TOXIC GRANULATION PRESENT
[2018-06-02 09:54] LABS: POLYCHROMIC SLIGHT
[2018-06-02 09:55] LABS: LARGE PLATELETS PRESENT
--- NOTE | 2018-06-02 10:16 | RAD ---
Chest x-ray single frontal view History: Empyema. Comparison: 06/01/2018 Findings: Persistent moderate to large loculated left pleural effusion/empyema. Left pleural drain in place. Consolidative changes at the left lung base. Heart size within normal limits. Degenerative changes in the spine. Impression: Persistent moderate to large loculated left pleural effusion/empyema. Left pleural drain in place. Consolidative changes at the left lung base.
[2018-06-02] MEDS: Omega-3-Acid Ethyl Esters 1 GM Cap PO SCH ×2 (10:27→18:24)
[2018-06-02] MEDS: Azithromycin 500 MG in Sodium Chloride 0.9% 250 ML IVPB SCH (10:28)
[2018-06-02] MEDS: Enoxaparin 40 mg Syringe SC SCH (10:28)
[2018-06-02] MEDS ORDERED: POLYETHYLENE GLYCOL 3350 17 GM/Dose PACKET PO ONE (10:35)
--- NOTE | 2018-06-02 12:35 | CP.PCM.PN ---
Subjective - Date & Time of Evaluation Date of Evaluation: 06/02/18 Time of Evaluation: 12:32 - Subjective Subjective: Surgery: Dr. Hughes Pt seen and examined. No acute events overnight. Pain controlled. Breathing improved. No SOB. Objective - Vital Signs/Intake and Output Vital Signs (last 24 hours): Temp Pulse Resp BP Pulse Ox 98.1 F 88 18 104/68 99 06/02/18 07:40 06/02/18 07:40 06/02/18 07:40 06/02/18 07:40 06/02/18 07:40 Intake and Output: 06/02/18 06/02/18 06:59 18:59 Intake Total 1815 Output Total 1640 Balance 175 - Medications Medications: Current Medications Albuterol/Ipratropium (Duoneb 3 Mg/0.5 Mg (3 Ml) Ud) 3 ml INH RQ4 [facility] Last Admin: 06/02/18 08:07 Dose: Not Given Docusate Sodium (Colace) 100 mg PO BID [facility] Enoxaparin Sodium (Lovenox) 40 mg SC DAILY [facility] Last Admin: 06/02/18 10:28 Dose: 40 mg Famotidine (Pepcid) 20 mg PO DAILY [facility] Last Admin: 06/02/18 10:29 Dose: 20 mg Fenofibrate (Tricor) 145 mg PO QPM [facility] Last Admin: 06/01/18 17:30 Dose: 145 mg Azithromycin 500 mg/ Sodium (Chloride) 250 mls @ 250 mls/hr IVPB DAILY [facility] PRN Reason: Protocol Last Admin: 06/02/18 10:28 Dose: 250 mls/hr Piperacillin Sod/Tazobactam Sod (Zosyn 3.375 Gm Iv Premix) 3.375 gm in 50 mls @ 100 mls/hr IVPB Q8H [facility] PRN Reason: Protocol Last Admin: 06/02/18 12:13 Dose: 100 mls/hr Vancomycin/Sodium Chloride (Vancomycin 1 Gm/Ns 200 Ml) 1 gm in 200 mls @ 133 mls/hr IVPB Q12H [facility] PRN Reason: Protocol Stop: 06/06/18 21:16 Last Admin: 06/02/18 09:02 Dose: 133 mls/hr Lamotrigine (Lamictal) 400 mg PO DAILY [facility] Last Admin: 06/02/18 10:27 Dose: 400 mg Levothyroxine Sodium (Synthroid) 175 mcg PO DAILY@0630 [facility] Last Admin: 06/02/18 05:31 Dose: 175 mcg Montelukast Sodium (Singulair) 10 mg PO [facility] Last Admin: 06/01/18 21:43 Dose: 10 mg Niacin (Niacin) 1,000 mg PO DAILY [facility] Last Admin: 06/02/18 10:27 Dose: 1,000 mg Ljowc-3-Neik Ethyl Esters (Lovaza) 1 gm PO BID [facility] Last Admin: 06/02/18 10:27 Dose: 1 gm Oxycodone/Acetaminophen (Percocet 5/325 Mg Tab) 1 tab PO Q4H PRN PRN Reason: Pain, moderate (4-7) Stop: 06/04/18 08:19 Last Admin: 06/02/18 05:31 Dose: 1 tab Oxycodone/Acetaminophen (Percocet 5/325 Mg Tab) 2 tab PO Q4H PRN PRN Reason: Pain, severe (8-10) Stop: 06/04/18 08:19 Last Admin: 06/01/18 21:44 Dose: 2 tab Quetiapine Fumarate (Seroquel Xr) 450 mg PO [facility] Last Admin: 06/01/18 21:43 Dose: 450 mg - Labs Labs: 06/02/18 08:21 06/02/18 08:21 PT 15.2 SECONDS (9.7-12.2) H 05/31/18 06:08 INR 1.4 05/31/18 06:08 APTT 28 SECONDS (21-34) 05/31/18 06:08 - Constitutional Appears: Non-toxic, No Acute Distress - Head Exam Head Exam: ATRAUMATIC, NORMOCEPHALIC - Eye Exam Eye Exam: EOMI - ENT Exam ENT Exam: Mucous Membranes Moist - Neck Exam Neck Exam: Full ROM - Respiratory Exam Respiratory Exam: NORMAL BREATHING PATTERN. absent: Accessory Muscle Use, Respiratory Distress Additional comments: L CT in place, thoracotomy incision C/D/I - GI/Abdominal Exam GI & Abdominal Exam: Soft. absent: Distended, Firm, Guarding, Rigid, Tenderness , Rebound - Extremities Exam Extremities Exam: absent: Calf Tenderness, Pedal Edema - Neurological Exam Neurological Exam: Alert, Awake, Oriented x3 Assessment and Plan - Assessment and Plan (Free Text) Assessment: 52M w. L empyema s/p thoracotomy and decortication, POD#2 -CT: 40cc/12hr serosang, tidling, no leak -CXR stable -CT placed to H2O seal -CXR in AM, possible D/C CT 06/03 -c/w current medical management -d/w attending Rach PGY4
[2018-06-02 19:10] LABS: BODY FLUID TYPE PLEURAL
[2018-06-02 20:12] LABS: BF GROSS APPEARANCE BLOODY (CLEAR)
[2018-06-02 20:15] LABS: BODY FLUID MONO/MACROPHAGE 1 % (0-0); BODY FLUID TOTAL COUNT 100 (0-0)
--- NOTE | 2018-06-02 21:05 | CP.PCM.PN ---
Subjective - Date & Time of Evaluation Date of Evaluation: 06/02/18 Time of Evaluation: 20:00 - Subjective Subjective: Pulmonary follow up, Covering Dr Jaquez The patient was Seen/interviewed and examined by me at the bedside, Medical records reviewed and Management issues were discussed and formulated with the house staff. Events reviewed Awake, Alert and oriented. Comfortable, NAD Breathing unlabored, on 2L NC O2 sat 98-100%. Chest tube off suction, No air leak Using I spirometry, about 1500 Denies any chest pain, SOB or Palpitations Only omplain of pain and chest tube insertion site Afebrile, Objective - Vital Signs/Intake and Output Vital Signs (last 24 hours): Temp Pulse Resp BP Pulse Ox 98.5 F 91 H 18 111/69 98 06/02/18 15:00 06/02/18 15:00 06/02/18 15:00 06/02/18 15:00 06/02/18 15:00 Intake and Output: 06/02/18 06/03/18 18:59 06:59 Output Total 830 Balance -830 - Medications Medications: Current Medications Albuterol/Ipratropium (Duoneb 3 Mg/0.5 Mg (3 Ml) Ud) 3 ml INH RQ4 [facility] Last Admin: 06/02/18 19:15 Dose: Not Given Docusate Sodium (Colace) 100 mg PO BID [facility] Last Admin: 06/02/18 18:24 Dose: 100 mg Enoxaparin Sodium (Lovenox) 40 mg SC DAILY [facility] Last Admin: 06/02/18 10:28 Dose: 40 mg Famotidine (Pepcid) 20 mg PO DAILY [facility] Last Admin: 06/02/18 10:29 Dose: 20 mg Fenofibrate (Tricor) 145 mg PO QPM [facility] Last Admin: 06/02/18 18:24 Dose: 145 mg Azithromycin 500 mg/ Sodium (Chloride) 250 mls @ 250 mls/hr IVPB DAILY [facility] PRN Reason: Protocol Last Admin: 06/02/18 10:28 Dose: 250 mls/hr Piperacillin Sod/Tazobactam Sod (Zosyn 3.375 Gm Iv Premix) 3.375 gm in 50 mls @ 100 mls/hr IVPB Q8H [facility] PRN Reason: Protocol Last Admin: 06/02/18 18:26 Dose: 100 mls/hr Vancomycin/Sodium Chloride (Vancomycin 1 Gm/Ns 200 Ml) 1 gm in 200 mls @ 133 mls/hr IVPB Q12H [facility] PRN Reason: Protocol Stop: 06/06/18 21:16 Last Admin: 06/02/18 09:02 Dose: 133 mls/hr Lamotrigine (Lamictal) 400 mg PO DAILY [facility] Last Admin: 06/02/18 10:27 Dose: 400 mg Levothyroxine Sodium (Synthroid) 175 mcg PO DAILY@0630 [facility] Last Admin: 06/02/18 05:31 Dose: 175 mcg Montelukast Sodium (Singulair) 10 mg PO [facility] Last Admin: 06/01/18 21:43 Dose: 10 mg Niacin (Niacin) 1,000 mg PO DAILY [facility] Last Admin: 06/02/18 10:27 Dose: 1,000 mg Wwiky-2-Kkff Ethyl Esters (Lovaza) 1 gm PO BID [facility] Last Admin: 06/02/18 18:24 Dose: 1 gm Oxycodone/Acetaminophen (Percocet 5/325 Mg Tab) 1 tab PO Q4H PRN PRN Reason: Pain, moderate (4-7) Stop: 06/04/18 08:19 Last Admin: 06/02/18 18:58 Dose: 1 tab Oxycodone/Acetaminophen (Percocet 5/325 Mg Tab) 2 tab PO Q4H PRN PRN Reason: Pain, severe (8-10) Stop: 06/04/18 08:19 Last Admin: 06/01/18 21:44 Dose: 2 tab Quetiapine Fumarate (Seroquel Xr) 450 mg PO [facility] Last Admin: 06/01/18 21:43 Dose: 450 mg - Labs Labs: 06/02/18 08:21 06/02/18 08:21 PT 15.2 SECONDS (9.7-12.2) H 05/31/18 06:08 INR 1.4 05/31/18 06:08 APTT 28 SECONDS (21-34) 05/31/18 06:08 - Constitutional Appears: Well, Non-toxic - Head Exam Head Exam: ATRAUMATIC, NORMAL INSPECTION - Eye Exam Pupil Exam: NORMAL ACCOMODATION, PERRL - Neck Exam Neck Exam: Full ROM, Normal Inspection. absent: Tenderness - Respiratory Exam Respiratory Exam: Decreased Breath Sounds, Prolonged Expiratory Phase, Rales, Rhonchi, NORMAL BREATHING PATTERN. absent: Wheezes - Cardiovascular Exam Cardiovascular Exam: REGULAR RHYTHM, RRR, +S1, +S2. absent: JVD - GI/Abdominal Exam GI & Abdominal Exam: Soft, Normal Bowel Sounds. absent: Tenderness - Back Exam Back Exam: absent: CVA tenderness (L), CVA tenderness (R) - Neurological Exam Neurological Exam: Alert, Awake, CN II-XII Intact, Oriented x3 Assessment and Plan (1) Cavitary lesion of lung Status: Acute (2) Pleural effusion Status: Acute (3) Pneumonia Status: Acute - Assessment and Plan (Free Text) Assessment: Status post VATS, decortication and chest tube insertion, Possible empyema Sputum positive for staph Mycoplasma IgM positive Continue azithromycin for mycoplasma infection Vancomycin for staph in the sputum Followup pathology report Followup culture and sensitivity OOB to chair I Spirometry Pain control
[2018-06-02] MEDS: QUEtiapine 150 mg XR Tab PO SCH (22:41)
[2018-06-03] MEDS: Albuterol-Ipratrop 3 mg / 0.5 (3 ml) UD INH SCH ×6 (00:49→20:04)
[2018-06-03] MEDS: Piperacill/Tazo 3.375gm in Dex 3.375 GM/50 ML BAG IVPB SCH ×3 (02:13→18:09)
[2018-06-03] MEDS: Oxycodone/Acetaminophen 5/325 mg Tab PO PRN ×4 (05:13→19:42)
[2018-06-03] MEDS: Levothyroxine 175 MCG TAB PO SCH (06:13)
[2018-06-03 07:31] LABS: BASO % 0.7 % (0.0-2.0); EOS # 0.4 K/uL (0.0-0.7); EOS % 5.7 % (0.0-4.0); HEMOGLOBIN 8.5 g/dL (12.0-18.0); LYMPH # 0.6 K/uL (1.0-4.3); LYMPH % 8.2 % (20.0-40.0); MEAN CELL VOLUME 81.2 fL (80.0-94.0); MEAN CORPUSCULAR HEMOGLOBIN 26.5 pg (27.0-31.0); MEAN CORPUSCULAR HGB CONC 32.7 g/dL (33.0-37.0); MEAN PLATELET VOLUME 6.9 fL (7.2-11.7); MONO # 0.7 K/uL (0.0-0.8); NEUT # 5.3 K/uL (1.8-7.0); NEUT % 75.4 % (50.0-75.0); PLATELET COUNT 506 K/uL (130-400); RBC 3.22 Mil/uL (4.40-5.90); RED CELL DISTRIBUTION WIDTH 17.6 % (11.5-14.5); WHITE BLOOD COUNT 7.1 K/uL (4.8-10.8)
[2018-06-03] MEDS ORDERED: Potassium & Sodium Phosphate PO STA (07:33)
[2018-06-03 07:37] LABS: ALB/GLOB RATIO 0.7 (1.0-2.1); ALBUMIN 2.1 g/dL (3.5-5.0); ALT/SGPT 57 U/L (21-72); AST/SGOT 28 U/L (17-59); BLOOD UREA NITROGEN 6 mg/dL (9-20); CALCIUM 7.8 mg/dl (8.6-10.4); GFR AFRICAN-AMERICAN > 60; GFR NON-AFRICAN AMERICAN > 60
--- NOTE | 2018-06-03 07:42 | CP.PCM.PN ---
Subjective - Date & Time of Evaluation Date of Evaluation: 06/03/18 Time of Evaluation: 07:41 - Subjective Subjective: Resident Progress Note for Hospitalist Service Patient examined at bedside. Objective - Vital Signs/Intake and Output Vital Signs (last 24 hours): Temp Pulse Resp BP Pulse Ox 97.9 F 90 20 116/66 99 06/02/18 23:35 06/03/18 02:39 06/02/18 23:35 06/02/18 23:35 06/02/18 23:35 Intake and Output: 06/03/18 06/03/18 06:59 18:59 Intake Total 1200 Output Total 820 Balance 380 - Medications Medications: Current Medications Albuterol/Ipratropium (Duoneb 3 Mg/0.5 Mg (3 Ml) Ud) 3 ml INH RQ4 [facility] Last Admin: 06/03/18 04:53 Dose: Not Given Docusate Sodium (Colace) 100 mg PO BID [facility] Last Admin: 06/02/18 18:24 Dose: 100 mg Enoxaparin Sodium (Lovenox) 40 mg SC DAILY [facility] Last Admin: 06/02/18 10:28 Dose: 40 mg Famotidine (Pepcid) 20 mg PO DAILY [facility] Last Admin: 06/02/18 10:29 Dose: 20 mg Fenofibrate (Tricor) 145 mg PO QPM [facility] Last Admin: 06/02/18 18:24 Dose: 145 mg Azithromycin 500 mg/ Sodium (Chloride) 250 mls @ 250 mls/hr IVPB DAILY [facility] PRN Reason: Protocol Last Admin: 06/02/18 10:28 Dose: 250 mls/hr Piperacillin Sod/Tazobactam Sod (Zosyn 3.375 Gm Iv Premix) 3.375 gm in 50 mls @ 100 mls/hr IVPB Q8H [facility] PRN Reason: Protocol Last Admin: 06/03/18 02:13 Dose: 100 mls/hr Vancomycin/Sodium Chloride (Vancomycin 1 Gm/Ns 200 Ml) 1 gm in 200 mls @ 133 mls/hr IVPB Q12H [facility] PRN Reason: Protocol Stop: 06/06/18 21:16 Last Admin: 06/02/18 22:10 Dose: 133 mls/hr Lamotrigine (Lamictal) 400 mg PO DAILY [facility] Last Admin: 08/19/18 10:27 Dose: 400 mg Levothyroxine Sodium (Synthroid) 175 mcg PO DAILY@0630 [facility] Last Admin: 06/03/18 06:13 Dose: 175 mcg Montelukast Sodium (Singulair) 10 mg PO HS [facility] Last Admin: 06/02/18 22:41 Dose: 10 mg Niacin (Niacin) 1,000 mg PO DAILY [facility] Last Admin: 06/02/18 10:27 Dose: 1,000 mg Ibdtx-0-Icll Ethyl Esters (Lovaza) 1 gm PO BID [facility] Last Admin: 06/02/18 18:24 Dose: 1 gm Oxycodone/Acetaminophen (Percocet 5/325 Mg Tab) 1 tab PO Q4H PRN PRN Reason: Pain, moderate (4-7) Stop: 06/04/18 08:19 Last Admin: 06/02/18 21:11 Dose: 1 tab Oxycodone/Acetaminophen (Percocet 5/325 Mg Tab) 2 tab PO Q4H PRN PRN Reason: Pain, severe (8-10) Stop: 06/04/18 08:19 Last Admin: 06/03/18 05:13 Dose: 2 tab Quetiapine Fumarate (Seroquel Xr) 450 mg PO [facility] Last Admin: 06/02/18 22:41 Dose: 450 mg - Labs Labs: 06/03/18 07:15 06/03/18 07:15 PT 15.2 SECONDS (9.7-12.2) H 05/31/18 06:08 INR 1.4 05/31/18 06:08 APTT 28 SECONDS (21-34) 05/31/18 06:08
[2018-06-03] MEDS ORDERED: Potassium Chloride 20 mEq ER Tab PO ONE (07:45)
[2018-06-03 08:31] LABS: EOSINOPHIL 5 % (0-4); LYMPHOCYTE 7 % (20-40); MONOCYTE 10 % (0-10); NEUTROPHIL 78 % (50-75); TOTAL CELLS COUNTED 100
[2018-06-03 08:33] LABS: ANISOCYTOSIS SLIGHT; HYPOCHROMIC SLIGHT; LARGE PLATELETS PRESENT; PLATELET ESTIMATE INCREASED (NORMAL); POIKILOCYTOSIS SLIGHT
[2018-06-03] MEDS: Vancomycin 1 gm/NS 200 ml 1 GM/200 ML BAG IVPB SCH ×2 (08:35→21:19)
[2018-06-03] MEDS: Enoxaparin 40 mg Syringe SC SCH (09:21)
[2018-06-03] MEDS: Omega-3-Acid Ethyl Esters 1 GM Cap PO SCH ×2 (09:24→17:30)
[2018-06-03] MEDS: Azithromycin 500 MG in Sodium Chloride 0.9% 250 ML IVPB SCH (09:26)
--- NOTE | 2018-06-03 09:46 | CP.PCM.PN ---
Subjective - Date & Time of Evaluation Date of Evaluation: 06/03/18 Time of Evaluation: 09:43 - Subjective Subjective: CT Surgery Note for Dr. Hughes Patient was seen and examined today at bedside in no acute distress. Nurse reports no overnight events. Patient complains of continuing discomfort at the chest tube site. Denies other CP, SOB, abdominal pain, n/v, c/d, f/c. Has not yet had BM. Objective - Vital Signs/Intake and Output Vital Signs (last 24 hours): Temp Pulse Resp BP Pulse Ox 98.2 F 86 18 104/70 99 06/03/18 08:00 06/03/18 08:00 06/03/18 08:00 06/03/18 08:00 06/03/18 08:00 Intake and Output: 06/03/18 06/03/18 06:59 18:59 Intake Total 1370 Output Total 820 660 Balance 550 -660 - Medications Medications: Current Medications Albuterol/Ipratropium (Duoneb 3 Mg/0.5 Mg (3 Ml) Ud) 3 ml INH RQ4 [facility] Last Admin: 06/03/18 04:53 Dose: Not Given Docusate Sodium (Colace) 100 mg PO BID [facility] Last Admin: 06/03/18 09:23 Dose: 100 mg Enoxaparin Sodium (Lovenox) 40 mg SC DAILY [facility] Last Admin: 06/03/18 09:21 Dose: 40 mg Famotidine (Pepcid) 20 mg PO DAILY [facility] Last Admin: 06/03/18 09:24 Dose: 20 mg Fenofibrate (Tricor) 145 mg PO QPM [facility] Last Admin: 06/02/18 18:24 Dose: 145 mg Azithromycin 500 mg/ Sodium (Chloride) 250 mls @ 250 mls/hr IVPB DAILY [facility] PRN Reason: Protocol Last Admin: 06/03/18 09:26 Dose: 250 mls/hr Piperacillin Sod/Tazobactam Sod (Zosyn 3.375 Gm Iv Premix) 3.375 gm in 50 mls @ 100 mls/hr IVPB Q8H [facility] PRN Reason: Protocol Last Admin: 06/03/18 02:13 Dose: 100 mls/hr Vancomycin/Sodium Chloride (Vancomycin 1 Gm/Ns 200 Ml) 1 gm in 200 mls @ 133 mls/hr IVPB Q12H [facility] PRN Reason: Protocol Stop: 06/06/18 21:16 Last Admin: 06/03/18 08:35 Dose: 133 mls/hr Lamotrigine (Lamictal) 400 mg PO DAILY [facility] Last Admin: 06/03/18 09:23 Dose: 400 mg Levothyroxine Sodium (Synthroid) 175 mcg PO DAILY@0630 [facility] Last Admin: 06/03/18 06:13 Dose: 175 mcg Montelukast Sodium (Singulair) 10 mg PO [facility] Last Admin: 06/02/18 22:41 Dose: 10 mg Niacin (Niacin) 1,000 mg PO DAILY [facility] Last Admin: 06/03/18 09:23 Dose: 1,000 mg Oyiss-2-Yjqe Ethyl Esters (Lovaza) 1 gm PO BID [facility] Last Admin: 06/03/18 09:24 Dose: 1 gm Oxycodone/Acetaminophen (Percocet 5/325 Mg Tab) 1 tab PO Q4H PRN PRN Reason: Pain, moderate (4-7) Stop: 06/04/18 08:19 Last Admin: 06/02/18 21:11 Dose: 1 tab Oxycodone/Acetaminophen (Percocet 5/325 Mg Tab) 2 tab PO Q4H PRN PRN Reason: Pain, severe (8-10) Stop: 06/04/18 08:19 Last Admin: 06/03/18 05:13 Dose: 2 tab Quetiapine Fumarate (Seroquel Xr) 450 mg PO [facility] Last Admin: 06/02/18 22:41 Dose: 450 mg - Labs Labs: 06/03/18 07:15 06/03/18 07:15 PT 15.2 SECONDS (9.7-12.2) H 05/31/18 06:08 INR 1.4 05/31/18 06:08 APTT 28 SECONDS (21-34) 05/31/18 06:08 - Constitutional Appears: Non-toxic, No Acute Distress - Head Exam Head Exam: ATRAUMATIC, NORMOCEPHALIC - Eye Exam Eye Exam: EOMI, Normal appearance - ENT Exam ENT Exam: Mucous Membranes Moist, Normal Exam - Respiratory Exam Respiratory Exam: NORMAL BREATHING PATTERN. absent: Respiratory Distress, Stridor Additional comments: left CT in place. thoracotomy incision site dressed c/d/i - Cardiovascular Exam Cardiovascular Exam: +S1, +S2 - GI/Abdominal Exam GI & Abdominal Exam: Soft. absent: Firm, Guarding, Tenderness, Rebound - Extremities Exam Extremities Exam: Normal Capillary Refill, Normal Inspection. absent: Tenderness - Neurological Exam Neurological Exam: Alert, Awake, Oriented x3 Assessment and Plan - Assessment and Plan (Free Text) Assessment: 52yoM with left empyema s/p thoracotomy and decortication POD#3 Plan: - no leak in chest tube, no drainage overnight - serial CXR, including today's, appreciated - will d/c left CT - cont serial CXR tomorrow to monitor - cont IV abx per ID - medical management per primary - encouraged incentive spirometer use, OOB - further recs per Dr. Ellen Page PGY1
--- NOTE | 2018-06-03 10:44 | RAD ---
Date of service: 06/03/2018 HISTORY: progression of evac of empyema, left CT COMPARISON: 06/02/2018 FINDINGS: LUNGS: No definite infiltrate. PLEURA: Small left pleural effusion unchanged in extent. Left chest tube unchanged in position. It extends towards the left hilum. There is no pneumothorax seen. CARDIOVASCULAR: Normal. OSSEOUS STRUCTURES: No significant abnormalities. VISUALIZED UPPER ABDOMEN: Normal. OTHER FINDINGS: None. IMPRESSION: Left pleural effusion and left chest tube unchanged from prior examination.
--- NOTE | 2018-06-03 11:30 | CP.PCM.PN ---
<Kt Page L - Last Filed: 06/03/18 11:26> Subjective - Date & Time of Evaluation Date of Evaluation: 06/03/18 Time of Evaluation: 11:26 - Subjective Subjective: Resident Progress Note for Hospitalist Service Patient examined at bedside. No acute events overnight. Reports continuous improvement in shortness of breath. States that he had flatus, however has not had a bowel movement yet. He also states his left sided rib pain is improved, rates the severity +3-4/10 in comparison to yesterday which was +4-5/10. He is eating and drinking well. Denies fevers, chills, chest pain, abdominal pain, dysuria. Objective - Vital Signs/Intake and Output Vital Signs (last 24 hours): Temp Pulse Resp BP Pulse Ox 98.2 F 86 18 104/70 99 06/03/18 08:00 06/03/18 08:00 06/03/18 08:00 06/03/18 08:00 06/03/18 08:00 Intake and Output: 06/03/18 06/03/18 06:59 18:59 Intake Total 1370 Output Total 820 660 Balance 550 -660 - Medications Medications: Current Medications Albuterol/Ipratropium (Duoneb 3 Mg/0.5 Mg (3 Ml) Ud) 3 ml INH RQ4 [facility] Last Admin: 06/03/18 04:53 Dose: Not Given Docusate Sodium (Colace) 100 mg PO BID [facility] Last Admin: 06/03/18 09:23 Dose: 100 mg Enoxaparin Sodium (Lovenox) 40 mg SC DAILY [facility] Last Admin: 06/03/18 09:21 Dose: 40 mg Famotidine (Pepcid) 20 mg PO DAILY [facility] Last Admin: 06/03/18 09:24 Dose: 20 mg Fenofibrate (Tricor) 145 mg PO QPM [facility] Last Admin: 06/02/18 18:24 Dose: 145 mg Azithromycin 500 mg/ Sodium (Chloride) 250 mls @ 250 mls/hr IVPB DAILY [facility] PRN Reason: Protocol Last Admin: 06/03/18 09:26 Dose: 250 mls/hr Piperacillin Sod/Tazobactam Sod (Zosyn 3.375 Gm Iv Premix) 3.375 gm in 50 mls @ 100 mls/hr IVPB Q8H [facility] PRN Reason: Protocol Last Admin: 06/03/18 02:13 Dose: 100 mls/hr Vancomycin/Sodium Chloride (Vancomycin 1 Gm/Ns 200 Ml) 1 gm in 200 mls @ 133 mls/hr IVPB Q12H [facility] PRN Reason: Protocol Stop: 06/06/18 21:16 Last Admin: 06/03/18 08:35 Dose: 133 mls/hr Lamotrigine (Lamictal) 400 mg PO DAILY [facility] Last Admin: 06/03/18 09:23 Dose: 400 mg Levothyroxine Sodium (Synthroid) 175 mcg PO DAILY@0630 [facility] Last Admin: 06/03/18 06:13 Dose: 175 mcg Montelukast Sodium (Singulair) 10 mg PO [facility] Last Admin: 06/02/18 22:41 Dose: 10 mg Niacin (Niacin) 1,000 mg PO DAILY [facility] Last Admin: 06/03/18 09:23 Dose: 1,000 mg Ogbyj-0-Oeuc Ethyl Esters (Lovaza) 1 gm PO BID [facility] Last Admin: 06/03/18 09:24 Dose: 1 gm Oxycodone/Acetaminophen (Percocet 5/325 Mg Tab) 1 tab PO Q4H PRN PRN Reason: Pain, moderate (4-7) Stop: 06/04/18 08:19 Last Admin: 06/03/18 11:10 Dose: 1 tab Oxycodone/Acetaminophen (Percocet 5/325 Mg Tab) 2 tab PO Q4H PRN PRN Reason: Pain, severe (8-10) Stop: 06/04/18 08:19 Last Admin: 06/03/18 05:13 Dose: 2 tab Quetiapine Fumarate (Seroquel Xr) 450 mg PO [facility] Last Admin: 06/02/18 22:41 Dose: 450 mg - Labs Labs: 06/03/18 07:15 06/03/18 07:15 PT 15.2 SECONDS (9.7-12.2) H 05/31/18 06:08 INR 1.4 05/31/18 06:08 APTT 28 SECONDS (21-34) 05/31/18 06:08 - Additional Findings Additional findings: - Constitutional Appears: Non-toxic, No Acute Distress - Head Exam Head Exam: ATRAUMATIC, NORMOCEPHALIC - Eye Exam Eye Exam: EOMI, Normal appearance - ENT Exam ENT Exam: Mucous Membranes Moist - Neck Exam Neck Exam: Normal Inspection - Respiratory Exam Respiratory Exam: Decreased Breath Sounds (improved), NORMAL BREATHING PATTERN. absent: Rhonchi, Wheezes, Respiratory Distress - Cardiovascular Exam Cardiovascular Exam: REGULAR RHYTHM, +S1, +S2 - GI/Abdominal Exam GI & Abdominal Exam: Soft, Normal Bowel Sounds. absent: Firm, Rigid, Tenderness - Extremities Exam Extremities Exam: Normal Capillary Refill, Normal Inspection. absent: Tenderness - Back Exam Back Exam: NORMAL INSPECTION - Neurological Exam Neurological Exam: Alert, Awake, Oriented x3 - Psychiatric Exam Psychiatric exam: Normal Affect, Normal Mood - Skin Skin Exam: Dry, Intact, Pallor Assessment and Plan - Assessment and Plan (Free Text) Plan: Pneumonia with large left pleural effusion - Azithromycin 500 mg IVPB daily - Zosyn 3.375 gm IVPB Q8H - Vancomycin 1 gm IVPB Q12H - 05/27 blood cultures negative x2 - Chest CT shows moderate to large left pleural effusion with localized effusion at the mid and upper portion of the left chest cavity compressing on the left lung. Foci of gas in mid and lower portion of left pleural effusion and possible abscess formation at left lower pleural space or less likely in left lung lower lobe as described above. Compressive atelectasis of left lung more prominent in left lower lobe. Small ground-glass opacities seen in right lung may represent lung edema or congestion. Splenomegaly. - Mycoplasma IgM positive - IR consulted. Recs appreciated. - Surgery consulted. Recs appreciated. - s/p thoracotomy with decortication and empyema evacuation - Pleural fluid: WBCs 48821 (H), RBCs 745515 (H), Total cell count 100 (H), Neutrophils 97.0 (H), Lymphocytes 1.0 (H), Monocyte/Macrophage 1 (H), pH 7.0 - 05/29 sputum culture grew s. aureus - 05/31 tissue cultures grew s. viridans - Followup pleural fluid cultures Transaminitis - Hepatitis panel negative - HIV negative - Abdominal ultrasound shows increased echogenicity of the hepatic parenchymal cortex suggestive for fatty infiltration versus hepatic parenchymal disease. prominent liver and spleen as above. limited visualized of the pancreas. Diarrhea - Followup stool cultures, fecal leukocytes Anemia - Hgb 8.5, Hct 26.2 - FOBT negative - Iron <10, TIBC 266, % saturation 3.75, ferritin 130.0 - Retic count 0.9 - B12 523, folate 13.3 Hyponatremia - Continue to monitor HLD - Fenofibrate 145mg po HS - Niacin 1g po daily Hypothyroidism - Synthroid 175mcg daily - TSH 0.75, T4 1.31 Bipolar Disorder - Gabapentin 600mg po TID, 1200mg po HS held - Seroquel 450mg po HS - Lamictal 400mg po daily - Hydroxazine 100mg HS (held due to increased QTc prolongation with azithromycin ) Prophylaxis - Lovenox 40 mg SC daily - Pepcid 20mg po daily Kt Page PGY-1 <Dodie Montgomery V - Last Filed: 06/03/18 17:51> Objective - Vital Signs/Intake and Output Vital Signs (last 24 hours): Temp Pulse Resp BP Pulse Ox 98.0 F 100 H 20 115/72 100 06/03/18 15:52 06/03/18 15:52 06/03/18 15:52 06/03/18 15:52 06/03/18 15:52 Intake and Output: 06/03/18 06/03/18 06:59 18:59 Intake Total 1370 1300 Output Total 820 690 Balance 550 610 - Medications Medications: Current Medications Albuterol/Ipratropium (Duoneb 3 Mg/0.5 Mg (3 Ml) Ud) 3 ml INH RQ4 [facility] Last Admin: 06/03/18 15:55 Dose: 3 ml Docusate Sodium (Colace) 100 mg PO BID [facility] Last Admin: 06/03/18 17:30 Dose: 100 mg Enoxaparin Sodium (Lovenox) 40 mg SC DAILY [facility] Last Admin: 06/03/18 09:21 Dose: 40 mg Famotidine (Pepcid) 20 mg PO DAILY [facility] Last Admin: 06/03/18 09:24 Dose: 20 mg Fenofibrate (Tricor) 145 mg PO QPM [facility] Last Admin: 06/03/18 17:30 Dose: 145 mg Azithromycin 500 mg/ Sodium (Chloride) 250 mls @ 250 mls/hr IVPB DAILY [facility] PRN Reason: Protocol Last Admin: 06/03/18 09:26 Dose: 250 mls/hr Piperacillin Sod/Tazobactam Sod (Zosyn 3.375 Gm Iv Premix) 3.375 gm in 50 mls @ 100 mls/hr IVPB Q8H [facility] PRN Reason: Protocol Last Admin: 06/03/18 02:13 Dose: 100 mls/hr Vancomycin/Sodium Chloride (Vancomycin 1 Gm/Ns 200 Ml) 1 gm in 200 mls @ 133 mls/hr IVPB Q12H [facility] PRN Reason: Protocol Stop: 06/06/18 21:16 Last Admin: 06/03/18 08:35 Dose: 133 mls/hr Lamotrigine (Lamictal) 400 mg PO DAILY [facility] Last Admin: 06/03/18 09:23 Dose: 400 mg Levothyroxine Sodium (Synthroid) 175 mcg PO DAILY@0630 [facility] Last Admin: 06/03/18 06:13 Dose: 175 mcg Montelukast Sodium (Singulair) 10 mg PO [facility] Last Admin: 06/02/18 22:41 Dose: 10 mg Niacin (Niacin) 1,000 mg PO DAILY [facility] Last Admin: 06/03/18 09:23 Dose: 1,000 mg Edgio-7-Mxml Ethyl Esters (Lovaza) 1 gm PO BID [facility] Last Admin: 06/03/18 17:30 Dose: 1 gm Oxycodone/Acetaminophen (Percocet 5/325 Mg Tab) 1 tab PO Q4H PRN PRN Reason: Pain, moderate (4-7) Stop: 06/04/18 08:19 Last Admin: 06/03/18 16:31 Dose: 1 tab Oxycodone/Acetaminophen (Percocet 5/325 Mg Tab) 2 tab PO Q4H PRN PRN Reason: Pain, severe (8-10) Stop: 06/04/18 08:19 Last Admin: 06/03/18 05:13 Dose: 2 tab Quetiapine Fumarate (Seroquel Xr) 450 mg PO [facility] Last Admin: 06/02/18 22:41 Dose: 450 mg - Labs Labs: 06/03/18 07:15 06/03/18 07:15 PT 15.2 SECONDS (9.7-12.2) H 05/31/18 06:08 INR 1.4 05/31/18 06:08 APTT 28 SECONDS (21-34) 05/31/18 06:08 Attending/Attestation - Attestation I have personally seen and examined this patient.: Yes I have fully participated in the care of the patient.: Yes I have reviewed all pertinent clinical information, including history, physical exam and plan: Yes Notes (Text): Patient seen, examined and case discussed with day-time resident. Patient seen this morning post operative day 3. Patient underwent decortication and drain of empyema of left loculated pleural effusion three days ago. Strep viridan from the tissue culture X2. Patient reports he has a bowel movement yesterday. Chest xray improving. Per surgery to determine when to d/c chest tube. I discussed with ID, will review IV antibiotics but likely patient will need PICC line for [facility] antibiotics. Will place for [facility] evaluation. Assessment/Plan 1) Pneumonia with large left pleural effusion Mycoplasma Pneumoniae Assessment/Plan * monitor on telemetry * IR consult for thoracentesis-->unable to sample not enough * Pulmonary (Dr. Jaquez) on consult-->help appreciated * Cardiothoracic (Dr. Hughes) on case-->help appreciated * Patient underwent decortication and drain of empyema of left loculated pleural effusion 05/31/18 * Patient had 2 tissue culture (2 culture swabs from left lung during OR) sent post-operative. * Intraoperative/post-operative management per surgery * Lung Prelim #1: Strep Viridans * Lung Prelim #2: Strep Viridans * Body Fluid: pending * Fungal Culture: pending * CT Chest (05/28/18): moderate to large left pleural effusion with localized effusion at mid and upper portion of the left chest cavity compressing on the left lung. Foci of gas in the mid and lower portion of the left pleural effusion and possible abscess formation at th left lower pleural space or less likely in the left lung lower lobe. Compressive atelectasis of the left lung more prominent in the left lung lower lobe. Small ground glass opacities in the right lung may represent lung edema or congestion. Splenomegaly. * Azithromycin 500mg IVPB daily (active since 05/27/18) * Zosyn 3.375 IVPB Q8H (active since 05/28/18) * Vancomycin 1 gram IV Q12H * Duonebs PRN shortness of breathe * Advair 500/50 1 puff inhaled Q12H (Patient takes Symbicort as outpatient not available on hospital formulary) 2) Chronic Anemia Assessment/Plan * s/p 2 unit PRBC 05/30 prior to OR * HgB 9.2 * Reticulocyte index: 0.37-->hypoproliferation of reticulocytes * Iron: <10 * TIBC: 266 * Ferritin: 130 * pending B12 and folate * Patient reports he has completed colonoscopy in the past * Patient reports has not had bone marrow biopsy or any further workup * Stool occult blood Negative * pending hemoglobinopathy panel 3) Hyponatremia Assessment/Plan * Normalized 4) Lipid Disorder Assessment/Plan * Fenofibrate 145mg po HS * Niacin 1g po daily 5) Hypothyroidism Assessment/Plan * Synthroid 175mcg PO qAM * within normal 6) History of Bipolar Disorder * Reviewed medications with patient: * Patient sparingly takes Gabapentin 100mg * Seroquel XR 450mg po HS * Lamictal 400mg po daily * Hydroxazine 100mg HS (held due to increased QTc prolongation with azithromycin) 7) Asthma Assessment/Plan * Patient takes Symbicort as outpatient * Patient has not formally seen a lung doctor * Patient reports significant smoking history 8) Elevated INR Possible secondary Alcohol LIier Disease Assessment/Plan * Abdominal US (05/28/18): increased echogenicity of the hepatic parenchymal cortex suggestive for fatty infiltation versus hepatic parenchymal disease. Prominent liver and spleen as described above. Limited visualization of the pancreas. * Received FFP prior to OR. 9) Smoking History Assessment/Plan * Former smoker * Counselled cessation * Nicoderm patch daily 10) Leukocytosis Assessment/Plan * Blood culture (05/27/18): no growth after 5 days X2 * Azithromycin 500mg IV Qdaily (active since 05/28/18) * Zosyn 3.375g IV Q8H (active since 05/28/18) * Vancomycin 1 gram IV Q12H (active since 06/02/18) 11) Transaminitis Assessment/Plan * Hepatitis panel: negative * Improving * Note: patient is on azithromycin and zosyn * Abdominal US (05/28/18): increased echogenicity of the hepatic parenchymal cortex suggestive for fatty infiltration versus hepatic parenchymal disease. prominent liver and spleen as above. limited visualized of the pancreas * prior hx of alcohol use 12) Prophylaxis * Lovenox 40mg subq daily * Protonix 40mg PO daily Disposition: Patient underwent thoracotomy and decoriation three days ago. Has one chest tube over left side of chest. Monitor outpatient. management per cardiothoracic surgery. Spoke with ID, recommend for PICC for intermediate manager antibiotics and PARVIZ bello.
--- NOTE | 2018-06-03 12:19 | CP.PCM.CON ---
History of Present Illness - History of Present Illness History of Present Illness: Palliative consult requested by Doctor Montgomery for goals of care discussion Patient is a 52 yo male admitted from Urgent Care where was diagnosed with Pneumonia. Patient recently came back from his trip to [place] and begun having SOB and cough accompanied by the pain to left sided pain. Before these symptoms developed, patient noticed changes in his appetite, tolerating less food. Patient also noted bleeding from his hemorrhoids. Upon admission CT chest was significant for Left pleural effusion , compressive Left atelectasis, and cabinetry mass vs. infection. Doctor anali called for Onco consult.. Patient is S/P VATS procedure and left chest tube insertion. Sputum + Staph infection and lung tissue + Strep. Mycoplasma IgM positive. Triple IV antibiotics on board. PMH: hypothyroidism, HDL, bipolar disorder Soc. 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 Hx: father with HTN, mother with bladder CA Review of Systems - Constitutional Constitutional: Fatigue - EENT Eyes: absent: As Per HPI, Blind Spots, Blurred Vision, Change in Vision, Decreased Night Vision, Diplopia, Discharge, Dry Eye, Exophthalmos, Floaters, Irritation, Itchy Eyes, Loss of Peripheral Vision, Pain, Photophobia, Requires Corrective Lenses, Sees Flashes, Spots in Vision, Tunnel Vision, Other Visual Disturbances, Loss of Vision, Other Ears: absent: As Per HPI, Decreased Hearing, Ear Discharge, Ear Pain, Tinnitus, Abnormal Hearing, Disequilibrium, Dizziness, Other Nose/Mouth/Throat: absent: As Per HPI, Epistaxis, Nasal Congestion, Nasal Discharge, Nasal Obstruction, Nasal Trauma, Nose Pain, Post Nasal Drip, Sinus Pain, Sinus Pressure, Bleeding Gums, Change in Voice, Dental Pain, Dry Mouth, Dysphagia, Halitosis, Hoarsness, Lip Swelling, Mouth Lesions, Mouth Pain, Odynophagia, Sore Throat, Throat Swelling, Tongue Swelling, Facial Pain, Neck Pain, Neck Mass, Other - Cardiovascular Cardiovascular: Dyspnea on Exertion - Respiratory Respiratory: Cough, Dyspnea on Exertion, Pain with Coughing - Gastrointestinal Gastrointestinal: absent: As Per HPI, Abdominal Pain, Belching, Bloating, Change in Bowel Habits, Change in Stool Character, Coffee Ground Emesis, Constipation, Cramping, Diarrhea, Dyspepsia, Dysphagia, Early Satiety, Excessive Flatus, Fecal Incontinence, Heartburn, Hematemesis, Hematochezia, Loose Stools, Melena, Nausea, Odynophagia, Temesmus, Vomiting, Other - Genitourinary Genitourinary: absent: As Per HPI, Change in Urinary Stream, Difficulty Urinating, Dysuria, Flank Pain, Hematuria, Pyuria, Nocturia, Urinary Incontinence, Urinary Frequency, Urinary Hesitance, Urinary Urgency, Voiding Freq/Small Amts, Freq UTI, Hx Renal/Bladder Calculi, Hx /Renal Surgery, Bladder Distension, Other - Musculoskeletal Musculoskeletal: absent: As Per HPI, Abnormal Gait, Arthralgias, Atrophy, Back Pain, Deformity, Joint Swelling, Limited Range of Motion, Loss of Height, Muscle Cramps, Muscle Weakness, Myalgias, Neck Pain, Numbness, Radiating Pain into Limb, Stiffness, Tingling, Other - Integumentary Integumentary: absent: As Per HPI, Acne, Alopecia, Bleeding Lesions, Change in Hair, Change in Nails, Change in Pigmentation, Changing Lesions, Dry Skin, Erythema, Furuncle, Hirsutism, Lesions, New Lesions, Non-Healing Lesions, Photosensitivity, Pruritus, Rash, Skin Pain, Skin Ulcer, Sores, Striae, Swelling , Unusual Bruising, Wounds, Jaundice, Other - Neurological Neurological: absent: As Per HPI, Abnormal Gait, Abnormal Hearing, Abnormal Movements, Abnormal Speech, Behavioral Changes, Burning Sensations, Confusion, Convulsions, Disequilibrium, Dizziness, Numbness, Focal Weakness, Frequent Falls , Headaches, Lack of Coordination, Loss of Vision, Memory Loss, Paresthesias, Radicular Pain, Restless Legs, Sensory Deficit, Syncope, Tingling, Tremor, Vertigo, Weakness, Other Visual Disturbances, Other - Psychiatric Psychiatric: absent: As Per HPI, Abnormal Sleep Pattern, Anhedonia, Anxiety, Auditory Hallucinations, Behavioral Changes, Change in Appetite, Change in Libido, Confusion, Depression, Difficulty Concentrating, Hallucinations, Homicidal Ideation, Hopelessness, Irritability, Memory Loss, Mood Swings, Panic Attacks, Paranoia, Suicidal Ideation, Visual Hallucinations, Tactile Hallucinations, Other - Endocrine Endocrine: absent: As Per HPI, Change in Body Appearance, Change in Libido, Cold Intolorance, Deepening of Voice, Excessive Sweating, Fatigue, Flushing, Heat Intolorance, Increase in Ring/Shoe/Hat Size, Palpitations, Polydipsia, Polyphagia, Polyuria, Other - Hematologic/Lymphatic Hematologic: absent: As Per HPI, Easy Bleeding, Easy Bruising, Lymphadenopathy, Other Past Patient History - Past Medical History & Family History Past Medical History?: Yes - Past Social History Smoking Status: Former Smoker - CARDIAC Hx Cardiac Disorders: Yes Hx Hypercholesterolemia: Yes - PULMONARY Hx Respiratory Disorders: No - NEUROLOGICAL Hx Neurological Disorder: No - HEENT Hx HEENT Problems: No - RENAL Hx Chronic Kidney Disease: No - ENDOCRINE/METABOLIC Hx Hypothyroidism: Yes - HEMATOLOGICAL/ONCOLOGICAL Hx Blood Disorders: No - INTEGUMENTARY Hx Dermatological Problems: No - MUSCULOSKELETAL/RHEUMATOLOGICAL Hx Falls: No - GASTROINTESTINAL Hx Gastrointestinal Disorders: No - GENITOURINARY/GYNECOLOGICAL Hx Genitourinary Disorders: No - PSYCHIATRIC Hx Substance Use: No - SURGICAL HISTORY Hx Surgeries: No - ANESTHESIA Hx Anesthesia: No Hx Anesthesia Reactions: No Hx Malignant Hyperthermia: No Has any member of the family had a problem w/ anesthesia?: No Meds Allergies/Adverse Reactions: Allergies Allergy/AdvReac Type Severity Reaction Status Date / Time lentils Allergy Verified 05/27/18 18:02 peanut Allergy Verified 05/27/18 18:02 peas Allergy Verified 05/27/18 18:02 soybean Allergy Verified 05/27/18 18:02 [place] Allergy Uncoded 05/27/18 18:02 - Medications Medications: Current Medications Albuterol/Ipratropium (Duoneb 3 Mg/0.5 Mg (3 Ml) Ud) 3 ml INH RQ4 [facility] Last Admin: 06/03/18 04:53 Dose: Not Given Docusate Sodium (Colace) 100 mg PO BID [facility] Last Admin: 06/03/18 09:23 Dose: 100 mg Enoxaparin Sodium (Lovenox) 40 mg SC DAILY [facility] Last Admin: 06/03/18 09:21 Dose: 40 mg Famotidine (Pepcid) 20 mg PO DAILY [facility] Last Admin: 06/03/18 09:24 Dose: 20 mg Fenofibrate (Tricor) 145 mg PO QPM [facility] Last Admin: 06/02/18 18:24 Dose: 145 mg Azithromycin 500 mg/ Sodium (Chloride) 250 mls @ 250 mls/hr IVPB DAILY [facility] PRN Reason: Protocol Last Admin: 06/03/18 09:26 Dose: 250 mls/hr Piperacillin Sod/Tazobactam Sod (Zosyn 3.375 Gm Iv Premix) 3.375 gm in 50 mls @ 100 mls/hr IVPB Q8H [facility] PRN Reason: Protocol Last Admin: 06/03/18 02:13 Dose: 100 mls/hr Vancomycin/Sodium Chloride (Vancomycin 1 Gm/Ns 200 Ml) 1 gm in 200 mls @ 133 mls/hr IVPB Q12H [facility] PRN Reason: Protocol Stop: 06/06/18 21:16 Last Admin: 06/03/18 08:35 Dose: 133 mls/hr Lamotrigine (Lamictal) 400 mg PO DAILY [facility] Last Admin: 06/03/18 09:23 Dose: 400 mg Levothyroxine Sodium (Synthroid) 175 mcg PO DAILY@0630 [facility] Last Admin: 06/03/18 06:13 Dose: 175 mcg Montelukast Sodium (Singulair) 10 mg PO [facility] Last Admin: 06/02/18 22:41 Dose: 10 mg Niacin (Niacin) 1,000 mg PO DAILY [facility] Last Admin: 06/03/18 09:23 Dose: 1,000 mg Wpqtf-8-Fcyy Ethyl Esters (Lovaza) 1 gm PO BID [facility] Last Admin: 06/03/18 09:24 Dose: 1 gm Oxycodone/Acetaminophen (Percocet 5/325 Mg Tab) 1 tab PO Q4H PRN PRN Reason: Pain, moderate (4-7) Stop: 06/04/18 08:19 Last Admin: 06/03/18 11:10 Dose: 1 tab Oxycodone/Acetaminophen (Percocet 5/325 Mg Tab) 2 tab PO Q4H PRN PRN Reason: Pain, severe (8-10) Stop: 06/04/18 08:19 Last Admin: 06/03/18 05:13 Dose: 2 tab Quetiapine Fumarate (Seroquel Xr) 450 mg PO [facility] Last Admin: 06/02/18 22:41 Dose: 450 mg Physical Exam - Constitutional Appears: No Acute Distress - Head Exam Head Exam: ATRAUMATIC, NORMAL INSPECTION, NORMOCEPHALIC - Eye Exam Eye Exam: EOMI, Normal appearance, PERRL Pupil Exam: NORMAL ACCOMODATION, PERRL - ENT Exam ENT Exam: Mucous Membranes Moist, Normal Exam - Neck Exam Neck exam: Positive for: Normal Inspection - Respiratory Exam Respiratory Exam: Decreased Breath Sounds, Rhonchi Additional comments: left sided chest tube - Cardiovascular Exam Cardiovascular Exam: Tachycardia - GI/Abdominal Exam GI & Abdominal Exam: Distended, Normal Bowel Sounds - Rectal Exam Rectal Exam: Deferred - Extremities Exam Extremities exam: Positive for: normal inspection - Back Exam Back exam: NORMAL INSPECTION - Neurological Exam Neurological exam: Oriented x3 - Psychiatric Exam Psychiatric exam: Normal Affect, Normal Mood - Skin Skin Exam: Normal Color, Warm Results - Vital Signs Recent Vital Signs: Last Vital Signs Temp 98.2 F 06/03/18 08:00 Pulse 86 06/03/18 08:00 Resp 18 06/03/18 08:00 BP 104/70 06/03/18 08:00 Pulse Ox 99 06/03/18 08:00 - Labs Result Diagrams: 06/03/18 07:15 06/03/18 07:15 Labs: Laboratory Results - last 24 hr 06/02/18 06/02/18 06/03/18 19:10 19:41 07:15 WBC 7.1 RBC 3.22 L Hgb 8.5 L Hct 26.2 L MCV 81.2 MCH 26.5 L MCHC 32.7 L RDW 17.6 H Plt Count 506 H MPV 6.9 L Neut % (Auto) 75.4 H Lymph % (Auto) 8.2 L Grainger % (Auto) 10.0 Eos % (Auto) 5.7 H Baso % (Auto) 0.7 Neut # (Auto) 5.3 Lymph # (Auto) 0.6 L Grainger # (Auto) 0.7 Eos # (Auto) 0.4 Baso # (Auto) 0.0 Neutrophils % (Manual) 78 H Lymphocytes % (Manual) 7 L Monocytes % (Manual) 10 Eosinophils % (Manual) 5 H Platelet Estimate Increased H Large Platelets Present Hypochromasia (manual) Slight Poikilocytosis (manual Slight Anisocytosis (manual) Slight Sodium Potassium Chloride Carbon Dioxide Anion Gap BUN Creatinine Est GFR ( Amer) Est GFR (Non-Af Amer) Random Glucose Calcium Phosphorus Magnesium Total Bilirubin AST ALT Alkaline Phosphatase Total Protein Albumin Globulin Albumin/Globulin Ratio Fluid Source Pleural Fluid Appearance Bloody Fluid WBC 96151.0 H Fluid RBC 056161.0 H Fluid Tot Cell Count 100 H Fluid Neutrophils 97.0 H Fluid Lymphocytes 1.0 H Fld Monocyte/Macrophag 1 H Fluid Comment Pleural pH 7.0 06/03/18 07:15 WBC RBC Hgb Hct MCV MCH MCHC RDW Plt Count MPV Neut % (Auto) Lymph % (Auto) Grainger % (Auto) Eos % (Auto) Baso % (Auto) Neut # (Auto) Lymph # (Auto) Grainger # (Auto) Eos # (Auto) Baso # (Auto) Neutrophils % (Manual) Lymphocytes % (Manual) Monocytes % (Manual) Eosinophils % (Manual) Platelet Estimate Large Platelets Hypochromasia (manual) Poikilocytosis (manual Anisocytosis (manual) Sodium 133 Potassium 3.4 L Chloride 98 Carbon Dioxide 29 Anion Gap 9 L BUN 6 L Creatinine 0.6 L Est GFR ( Amer) > 60 Est GFR (Non-Af Amer) > 60 Random Glucose 102 Calcium 7.8 L Phosphorus 2.4 L Magnesium 1.7 Total Bilirubin 0.3 AST 28 ALT 57 Alkaline Phosphatase 116 Total Protein 4.9 L Albumin 2.1 L Globulin 2.8 Albumin/Globulin Ratio 0.7 L Fluid Source Fluid Appearance Fluid WBC Fluid RBC Fluid Tot Cell Count Fluid Neutrophils Fluid Lymphocytes Fld Monocyte/Macrophag Fluid Comment Pleural pH Assessment & Plan - Assessment and Plan (Free Text) Assessment: Palliative consult Full Code, there is no Advance Directive on chart, PPS 30% I reviewed medical records, all diagnostic studies, examined and interviewed patient in the bed. Patient is alert, oriented X 3, in no acute distress, looking pale. Hb 8.5. Breath sounds diminished, more to left side. Moist cough is fallowed by pain to left mid back where is the chest tube. patient takes Percocet for pain when needed. Reports, " does not like the feeling" after Percocet and tries to take it only when the pain severe 5-7/10. Chest tube drains yellowish drainage. Doctor Anali is under impression that the mass seen on CT chest s mostly due to lung infection and fallow up post discharge was suggested . Abdomen is distended, active bowel sounds, last BM Sunday morning. Patient is ambulatory, walked in [address] X 2 with assistance. BP 116/66, HR 82. Hb dropped to 8.5 from 10.3. Denies bleeding hemorrhoids since admission. Goals of care discussed with patient. I elicited his understanding about his diagnosis and expectations of care. Patient knew he had " infection in his lungs " and is on IV antibiotics. Patient understands that he may need some PT at [facility] post discharge from here. He wishes pain is better controlled without drowsiness. Impression * Acute SOB, 2nd to Staph and Strep lung infection * Weight loss due to decreased appetite 2nd to lung infection * Acute surgical pain to chest tube site * Needs assistance with OOB and ambulation * In anticipation for [facility] * Anemia, acute blood loss Suggestion * Continue IV antibiotics * Advance diet as tolerated * Assist OOB and ambulation * Consider Tylenol # 3 for painas opposed to Percocet due to lethatgy post Percocet * Monitor Hb, transfuse blood if hb < 8.0. * Discharge planing to [facility] Palliative care will fallow up with this patient until discharge
--- NOTE | 2018-06-03 14:06 | CP.PCM.PN ---
Subjective - Date & Time of Evaluation Date of Evaluation: 06/03/18 Time of Evaluation: 10:00 - Subjective Subjective: Patient seen and examined Status post decortication Culture positive for strep viridans Minimal drainage from chest tube Denies shortness of breath Afebrile Objective - Vital Signs/Intake and Output Vital Signs (last 24 hours): Temp Pulse Resp BP Pulse Ox 98.2 F 86 18 104/70 99 06/03/18 08:00 06/03/18 08:00 06/03/18 08:00 06/03/18 08:00 06/03/18 08:00 Intake and Output: 06/03/18 06/03/18 06:59 18:59 Intake Total 1370 Output Total 820 660 Balance 550 -660 - Medications Medications: Current Medications Albuterol/Ipratropium (Duoneb 3 Mg/0.5 Mg (3 Ml) Ud) 3 ml INH RQ4 [facility] Last Admin: 06/03/18 04:53 Dose: Not Given Docusate Sodium (Colace) 100 mg PO BID [facility] Last Admin: 06/03/18 09:23 Dose: 100 mg Enoxaparin Sodium (Lovenox) 40 mg SC DAILY [facility] Last Admin: 06/03/18 09:21 Dose: 40 mg Famotidine (Pepcid) 20 mg PO DAILY [facility] Last Admin: 06/03/18 09:24 Dose: 20 mg Fenofibrate (Tricor) 145 mg PO QPM [facility] Last Admin: 06/02/18 18:24 Dose: 145 mg Azithromycin 500 mg/ Sodium (Chloride) 250 mls @ 250 mls/hr IVPB DAILY [facility] PRN Reason: Protocol Last Admin: 06/03/18 09:26 Dose: 250 mls/hr Piperacillin Sod/Tazobactam Sod (Zosyn 3.375 Gm Iv Premix) 3.375 gm in 50 mls @ 100 mls/hr IVPB Q8H [facility] PRN Reason: Protocol Last Admin: 06/03/18 02:13 Dose: 100 mls/hr Vancomycin/Sodium Chloride (Vancomycin 1 Gm/Ns 200 Ml) 1 gm in 200 mls @ 133 mls/hr IVPB Q12H [facility] PRN Reason: Protocol Stop: 06/06/18 21:16 Last Admin: 06/03/18 08:35 Dose: 133 mls/hr Lamotrigine (Lamictal) 400 mg PO DAILY [facility] Last Admin: 06/03/18 09:23 Dose: 400 mg Levothyroxine Sodium (Synthroid) 175 mcg PO DAILY@0630 [facility] Last Admin: 06/03/18 06:13 Dose: 175 mcg Montelukast Sodium (Singulair) 10 mg PO [facility] Last Admin: 06/02/18 22:41 Dose: 10 mg Niacin (Niacin) 1,000 mg PO DAILY [facility] Last Admin: 06/03/18 09:23 Dose: 1,000 mg Wszpl-5-Vhpv Ethyl Esters (Lovaza) 1 gm PO BID [facility] Last Admin: 06/03/18 09:24 Dose: 1 gm Oxycodone/Acetaminophen (Percocet 5/325 Mg Tab) 1 tab PO Q4H PRN PRN Reason: Pain, moderate (4-7) Stop: 06/04/18 08:19 Last Admin: 06/03/18 11:10 Dose: 1 tab Oxycodone/Acetaminophen (Percocet 5/325 Mg Tab) 2 tab PO Q4H PRN PRN Reason: Pain, severe (8-10) Stop: 06/04/18 08:19 Last Admin: 06/03/18 05:13 Dose: 2 tab Quetiapine Fumarate (Seroquel Xr) 450 mg PO [facility] Last Admin: 06/02/18 22:41 Dose: 450 mg - Labs Labs: 06/03/18 07:15 06/03/18 07:15 PT 15.2 SECONDS (9.7-12.2) H 05/31/18 06:08 INR 1.4 05/31/18 06:08 APTT 28 SECONDS (21-34) 05/31/18 06:08 - Head Exam Head Exam: ATRAUMATIC, NORMOCEPHALIC - ENT Exam ENT Exam: Mucous Membranes Moist - Neck Exam Neck Exam: Normal Inspection - Respiratory Exam Respiratory Exam: Decreased Breath Sounds - Cardiovascular Exam Cardiovascular Exam: REGULAR RHYTHM - GI/Abdominal Exam GI & Abdominal Exam: Soft, Normal Bowel Sounds Assessment and Plan (1) Pleural effusion Assessment & Plan: Status post decortication Culture positive for strep viridans Continue Zosyn and vancomycin Minimal drainage from chest tube Status: Acute (2) Cavitary lesion of lung Status: Acute (3) Pneumonia Status: Acute
--- NOTE | 2018-06-03 16:31 | RAD ---
HISTORY: s/p chest tube removal COMPARISON: Chest x-ray performed 06/03/18 at 7:04 a.m. TECHNIQUE: Chest, one view. FINDINGS: LUNGS: Small left-sided pleural effusion. Interval removal of left-sided chest tube. No definite pneumothorax. Please note that chest x-ray has limited sensitivity for the detection of pulmonary masses. CARDIOVASCULAR: Partially obscured cardiomediastinal silhouette. OSSEOUS STRUCTURES: Degenerative changes of the spine. VISUALIZED UPPER ABDOMEN: Unremarkable. OTHER FINDINGS: Surgical skin sergey. IMPRESSION: Small left-sided pleural effusion persists. Interval removal of left-sided chest tube.
--- NOTE | 2018-06-03 20:46 | CP.PCM.PN ---
Subjective - Date & Time of Evaluation Date of Evaluation: 06/03/18 Time of Evaluation: 17:45 - Subjective Subjective: dictated Objective - Vital Signs/Intake and Output Vital Signs (last 24 hours): Temp Pulse Resp BP Pulse Ox 98.0 F 100 H 20 115/72 100 06/03/18 15:52 06/03/18 15:52 06/03/18 15:52 06/03/18 15:52 06/03/18 15:52 Intake and Output: 06/03/18 06/04/18 18:59 06:59 Intake Total 1300 Output Total 690 Balance 610 - Medications Medications: Current Medications Albuterol/Ipratropium (Duoneb 3 Mg/0.5 Mg (3 Ml) Ud) 3 ml INH RQ4 [facility] Last Admin: 06/03/18 20:04 Dose: 3 ml Docusate Sodium (Colace) 100 mg PO BID [facility] Last Admin: 06/03/18 17:30 Dose: 100 mg Enoxaparin Sodium (Lovenox) 40 mg SC DAILY [facility] Last Admin: 06/03/18 09:21 Dose: 40 mg Famotidine (Pepcid) 20 mg PO DAILY [facility] Last Admin: 06/03/18 09:24 Dose: 20 mg Fenofibrate (Tricor) 145 mg PO QPM [facility] Last Admin: 06/03/18 17:30 Dose: 145 mg Azithromycin 500 mg/ Sodium (Chloride) 250 mls @ 250 mls/hr IVPB DAILY [facility] PRN Reason: Protocol Last Admin: 06/03/18 09:26 Dose: 250 mls/hr Piperacillin Sod/Tazobactam Sod (Zosyn 3.375 Gm Iv Premix) 3.375 gm in 50 mls @ 100 mls/hr IVPB Q8H [facility] PRN Reason: Protocol Last Admin: 06/03/18 18:09 Dose: 100 mls/hr Vancomycin/Sodium Chloride (Vancomycin 1 Gm/Ns 200 Ml) 1 gm in 200 mls @ 133 mls/hr IVPB Q12H [facility] PRN Reason: Protocol Stop: 06/06/18 21:16 Last Admin: 06/03/18 08:35 Dose: 133 mls/hr Lamotrigine (Lamictal) 400 mg PO DAILY [facility] Last Admin: 06/03/18 09:23 Dose: 400 mg Levothyroxine Sodium (Synthroid) 175 mcg PO DAILY@0630 [facility] Last Admin: 06/03/18 06:13 Dose: 175 mcg Montelukast Sodium (Singulair) [address] [facility] Last Admin: 06/02/18 22:41 Dose: 10 mg Niacin (Niacin) 1,000 mg PO DAILY [facility] Last Admin: 06/03/18 09:23 Dose: 1,000 mg Mypbt-6-Ybrc Ethyl Esters (Lovaza) 1 gm PO BID [facility] Last Admin: 06/03/18 17:30 Dose: 1 gm Oxycodone/Acetaminophen (Percocet 5/325 Mg Tab) 1 tab PO Q4H PRN PRN Reason: Pain, moderate (4-7) Stop: 06/04/18 08:19 Last Admin: 06/03/18 16:31 Dose: 1 tab Oxycodone/Acetaminophen (Percocet 5/325 Mg Tab) 2 tab PO Q4H PRN PRN Reason: Pain, severe (8-10) Stop: 06/04/18 08:19 Last Admin: 06/03/18 19:42 Dose: 2 tab Quetiapine Fumarate (Seroquel Xr) [address] [facility] Last Admin: 06/02/18 22:41 Dose: 450 mg - Labs Labs: 06/03/18 07:15 06/03/18 07:15 PT 15.2 SECONDS (9.7-12.2) H 05/31/18 06:08 INR 1.4 05/31/18 06:08 APTT 28 SECONDS (21-34) 05/31/18 06:08
[2018-06-03] MEDS: QUEtiapine 150 mg XR Tab PO SCH (21:20)
--- NOTE | 2018-06-03 23:21 | CP.PCM.PN ---
Subjective - Date & Time of Evaluation Date of Evaluation: 06/03/18 Time of Evaluation: 21:00 - Subjective Subjective: Has some chest pain related to chest tube Objective - Vital Signs/Intake and Output Vital Signs (last 24 hours): Temp Pulse Resp BP Pulse Ox 98.0 F 100 H 20 115/72 100 06/03/18 15:52 06/03/18 15:52 06/03/18 15:52 06/03/18 15:52 06/03/18 15:52 Intake and Output: 06/03/18 06/04/18 18:59 06:59 Intake Total 1300 Output Total 690 Balance 610 - Medications Medications: Current Medications Albuterol/Ipratropium (Duoneb 3 Mg/0.5 Mg (3 Ml) Ud) 3 ml INH RQ4 [facility] Last Admin: 06/03/18 20:04 Dose: 3 ml Docusate Sodium (Colace) 100 mg PO BID [facility] Last Admin: 06/03/18 17:30 Dose: 100 mg Enoxaparin Sodium (Lovenox) 40 mg SC DAILY [facility] Last Admin: 06/03/18 09:21 Dose: 40 mg Famotidine (Pepcid) 20 mg PO DAILY [facility] Last Admin: 06/03/18 09:24 Dose: 20 mg Fenofibrate (Tricor) 145 mg PO QPM [facility] Last Admin: 06/03/18 17:30 Dose: 145 mg Azithromycin 500 mg/ Sodium (Chloride) 250 mls @ 250 mls/hr IVPB DAILY [facility] PRN Reason: Protocol Last Admin: 06/03/18 09:26 Dose: 250 mls/hr Piperacillin Sod/Tazobactam Sod (Zosyn 3.375 Gm Iv Premix) 3.375 gm in 50 mls @ 100 mls/hr IVPB Q8H [facility] PRN Reason: Protocol Last Admin: 06/03/18 18:09 Dose: 100 mls/hr Vancomycin/Sodium Chloride (Vancomycin 1 Gm/Ns 200 Ml) 1 gm in 200 mls @ 133 mls/hr IVPB Q12H [facility] PRN Reason: Protocol Stop: 06/06/18 21:16 Last Admin: 06/03/18 21:19 Dose: 133 mls/hr Lactobacillus Acidophilus (Bacid Acidophilus) 1 cap PO BID [facility] Lamotrigine (Lamictal) 400 mg PO DAILY [facility] Last Admin: 06/03/18 09:23 Dose: 400 mg Levothyroxine Sodium (Synthroid) 175 mcg PO DAILY@0630 [facility] Last Admin: 06/03/18 06:13 Dose: 175 mcg Montelukast Sodium (Singulair) 10 mg PO [facility] Last Admin: 06/03/18 21:20 Dose: 10 mg Niacin (Niacin) 1,000 mg PO DAILY [facility] Last Admin: 06/03/18 09:23 Dose: 1,000 mg Wmjln-3-Xejj Ethyl Esters (Lovaza) 1 gm PO BID [facility] Last Admin: 06/03/18 17:30 Dose: 1 gm Oxycodone/Acetaminophen (Percocet 5/325 Mg Tab) 1 tab PO Q4H PRN PRN Reason: Pain, moderate (4-7) Stop: 06/04/18 08:19 Last Admin: 06/03/18 16:31 Dose: 1 tab Oxycodone/Acetaminophen (Percocet 5/325 Mg Tab) 2 tab PO Q4H PRN PRN Reason: Pain, severe (8-10) Stop: 06/04/18 08:19 Last Admin: 06/03/18 19:42 Dose: 2 tab Quetiapine Fumarate (Seroquel Xr) 450 mg PO [facility] Last Admin: 06/03/18 21:20 Dose: 450 mg - Labs Labs: 06/03/18 07:15 06/03/18 07:15 PT 15.2 SECONDS (9.7-12.2) H 05/31/18 06:08 INR 1.4 05/31/18 06:08 APTT 28 SECONDS (21-34) 05/31/18 06:08 - Head Exam Head Exam: ATRAUMATIC - Eye Exam Eye Exam: Normal appearance - ENT Exam ENT Exam: Mucous Membranes Dry - Respiratory Exam Respiratory Exam: NORMAL BREATHING PATTERN - Cardiovascular Exam Cardiovascular Exam: +S1, +S2 - GI/Abdominal Exam GI & Abdominal Exam: Normal Bowel Sounds Assessment and Plan (1) Cavitary lesion of lung Assessment & Plan: appears to be infection related given empyema f/u pathology outpatient repeat imaging to document resolution Status: Acute (2) Anemia Assessment & Plan: chronic disease from infection f/u hgb electropheresis Status: Acute
[2018-06-04] MEDS: Albuterol-Ipratrop 3 mg / 0.5 (3 ml) UD INH SCH ×7 (00:36→23:46)
--- NOTE | 2018-06-04 01:57 | PN ---
Copied To: Melody Cruz MD Attending MD: Melody Cruz MD DATE: 06/03/2018 SUBJECTIVE: The patient was seen today. His chest tube has been removed. He was feeling little better, but he still said he was not able to take deep breaths as he was scared of pain. PHYSICAL EXAMINATION: VITAL SIGNS: T-max is 98, pulse 100, blood pressure 115/72, respirations are 20. HEENT: Head is atraumatic. NECK: Supple. LUNGS: Had decreased breath sounds bilaterally. HEART: S1, S2. Tachycardic. ABDOMEN: Soft, nontender. No guarding, no rigidity present. EXTREMITIES: Had no edema. LABORATORY DATA: Labs are noted. Labs show white count is 7.1; hemoglobin 8.5; hematocrit 26.2, his hemoglobin decreased; platelets 506. Potassium is 3.4 today, creatinine of 0.6. ASSESSMENT AND PLAN: In his fluid, white blood cells were 21,700 and red blood cells were , so there were many more red blood cells. I went to see the pathology report. The pathology report of the surgical specimen shows decortication tissue, fragments of fibroconnective tissue with acute and chronic inflammation, abscess formation, granulation tissue and reactive changes, so he did have an abscess formation there and also had decortication done. The labs are noted. Micro kelly, he had Streptococcus viridans which grew out of the tissue culture and from the sputum, he has Staphylococcus aureus and Streptococcus viridans. Light growth of Streptococcus viridans, no sensitivity done. He also had mycoplasma positive at this time, and it was very oxacillin sensitive, so I think Zosyn should be perfect to treat him, and so we will leave him for now, he is on vancomycin, Zosyn and Zithromax. He probably will need a peripherally inserted central catheter line, and he needs to go on intravenous antibiotics at least two weeks or more. He had this tissue totally inflamed with abscess formation, mycoplasma IgM positive and may need rehabilitation. We will follow. Once he is stable, I think we will get a peripherally inserted central catheter line and think about getting him with Zosyn and Zithromax. Zithromax can always be changed to oral and keep the Zosyn intravenously. Zithromax, we can probably give for a total of 10 days and should be enough. Melody Cruz MD
[2018-06-04] MEDS: Piperacill/Tazo 3.375gm in Dex 3.375 GM/50 ML BAG IVPB SCH ×3 (02:22→18:36)
[2018-06-04] MEDS: Oxycodone/Acetaminophen 5/325 mg Tab PO PRN ×2 (06:29→20:28)
[2018-06-04] MEDS: Levothyroxine 175 MCG TAB PO SCH (06:30)
--- NOTE | 2018-06-04 06:43 | CP.PCM.PN ---
Subjective - Date & Time of Evaluation Date of Evaluation: 06/04/18 Time of Evaluation: 06:41 - Subjective Subjective: Resident Progress Note for Hospitalist Service Patient examined at bedside. No acute events overnight. He has not had a bowel movement yet. States that he is still having some rib pain however it is continuously improving. Patient is s/p chest tube removal. States he is eating and drinking well. Denies headache, dizziness, chest pain, shortness of breath, abdominal pain, dysuria. Objective - Vital Signs/Intake and Output Vital Signs (last 24 hours): Temp Pulse Resp BP Pulse Ox 98 F 92 H 20 116/76 96 06/04/18 05:40 06/04/18 05:40 06/04/18 05:40 06/04/18 05:40 06/04/18 05:40 Intake and Output: 06/03/18 06/04/18 18:59 06:59 Intake Total 1300 Output Total 690 Balance 610 - Medications Medications: Current Medications Albuterol/Ipratropium (Duoneb 3 Mg/0.5 Mg (3 Ml) Ud) 3 ml INH RQ4 [facility] Last Admin: 06/04/18 04:00 Dose: Not Given Docusate Sodium (Colace) 100 mg PO BID [facility] Last Admin: 06/03/18 17:30 Dose: 100 mg Enoxaparin Sodium (Lovenox) 40 mg SC DAILY [facility] Last Admin: 06/03/18 09:21 Dose: 40 mg Famotidine (Pepcid) 20 mg PO DAILY [facility] Last Admin: 06/03/18 09:24 Dose: 20 mg Fenofibrate (Tricor) 145 mg PO QPM [facility] Last Admin: 06/03/18 17:30 Dose: 145 mg Azithromycin 500 mg/ Sodium (Chloride) 250 mls @ 250 mls/hr IVPB DAILY [facility] PRN Reason: Protocol Last Admin: 06/03/18 09:26 Dose: 250 mls/hr Piperacillin Sod/Tazobactam Sod (Zosyn 3.375 Gm Iv Premix) 3.375 gm in 50 mls @ 100 mls/hr IVPB Q8H [facility] PRN Reason: Protocol Last Admin: 06/04/18 02:22 Dose: 100 mls/hr Vancomycin/Sodium Chloride (Vancomycin 1 Gm/Ns 200 Ml) 1 gm in 200 mls @ 133 mls/hr IVPB Q12H [facility] PRN Reason: Protocol Stop: 06/06/18 21:16 Last Admin: 06/03/18 21:19 Dose: 133 mls/hr Lactobacillus Acidophilus (Bacid Acidophilus) 1 cap PO BID [facility] Lamotrigine (Lamictal) 400 mg PO DAILY [facility] Last Admin: 06/03/18 09:23 Dose: 400 mg Levothyroxine Sodium (Synthroid) 175 mcg PO DAILY@0630 [facility] Last Admin: 06/04/18 06:30 Dose: 175 mcg Montelukast Sodium (Singulair) 10 mg PO [facility] Last Admin: 06/03/18 21:20 Dose: 10 mg Niacin (Niacin) 1,000 mg PO DAILY [facility] Last Admin: 06/03/18 09:23 Dose: 1,000 mg Fcunn-6-Foxn Ethyl Esters (Lovaza) 1 gm PO BID [facility] Last Admin: 06/03/18 17:30 Dose: 1 gm Oxycodone/Acetaminophen (Percocet 5/325 Mg Tab) 1 tab PO Q4H [facility] PRN Reason: Pain, moderate (4-7) Stop: 06/04/18 08:19 Last Admin: 06/04/18 06:29 Dose: 1 tab Oxycodone/Acetaminophen (Percocet 5/325 Mg Tab) 2 tab PO Q4H [facility] PRN Reason: Pain, severe (8-10) Stop: 06/04/18 08:19 Last Admin: 06/03/18 19:42 Dose: 2 tab Quetiapine Fumarate (Seroquel Xr) 450 mg PO [facility] Last Admin: 06/03/18 21:20 Dose: 450 mg - Labs Labs: 06/03/18 07:15 06/03/18 07:15 PT 15.2 SECONDS (9.7-12.2) H 05/31/18 06:08 INR 1.4 05/31/18 06:08 APTT 28 SECONDS (21-34) 05/31/18 06:08 - Additional Findings Additional findings: - Constitutional Appears: Non-toxic, No Acute Distress - Head Exam Head Exam: ATRAUMATIC, NORMOCEPHALIC - Eye Exam Eye Exam: EOMI, Normal appearance - ENT Exam ENT Exam: Mucous Membranes Moist - Neck Exam Neck Exam: Normal Inspection - Respiratory Exam Respiratory Exam: Decreased Breath Sounds (improved), NORMAL BREATHING PATTERN. absent: Rhonchi, Wheezes, Respiratory Distress - Cardiovascular Exam Cardiovascular Exam: REGULAR RHYTHM, +S1, +S2 - GI/Abdominal Exam GI & Abdominal Exam: Soft, Normal Bowel Sounds. absent: Firm, Rigid, Tenderness - Extremities Exam Extremities Exam: Normal Capillary Refill, Normal Inspection. absent: Tenderness - Back Exam Back Exam: NORMAL INSPECTION - Neurological Exam Neurological Exam: Alert, Awake, Oriented x3 - Psychiatric Exam Psychiatric exam: Normal Affect, Normal Mood - Skin Skin Exam: Dry, Intact, Pallor Assessment and Plan - Assessment and Plan (Free Text) Plan: Pneumonia with large left pleural effusion - Azithromycin 500 mg IVPB daily - Zosyn 3.375 gm IVPB Q8H - Vancomycin 1 gm IVPB Q12H - 05/27 blood cultures negative x2 - Chest CT shows moderate to large left pleural effusion with localized effusion at the mid and upper portion of the left chest cavity compressing on the left lung. Foci of gas in mid and lower portion of left pleural effusion and possible abscess formation at left lower pleural space or less likely in left lung lower lobe as described above. Compressive atelectasis of left lung more prominent in left lower lobe. Small ground-glass opacities seen in right lung may represent lung edema or congestion. Splenomegaly. - Mycoplasma IgM positive - IR consulted. Recs appreciated. - Surgery consulted. Recs appreciated. - s/p thoracotomy with decortication and empyema evacuation - Pleural fluid: WBCs 34292 (H), RBCs 843971 (H), Total cell count 100 (H), Neutrophils 97.0 (H), Lymphocytes 1.0 (H), Monocyte/Macrophage 1 (H), pH 7.0 - 05/29 sputum culture grew s. aureus - 05/31 tissue cultures grew s. viridans - Pleural fluid culture prelim no growth after 2 days, no fungal elements Transaminitis - Hepatitis panel negative - HIV negative - Abdominal ultrasound shows increased echogenicity of the hepatic parenchymal cortex suggestive for fatty infiltration versus hepatic parenchymal disease. prominent liver and spleen as above. limited visualized of the pancreas. Diarrhea - Followup stool cultures, fecal leukocytes Anemia - Hgb 8.5, Hct 26.2 - FOBT negative - Iron <10, TIBC 266, % saturation 3.75, ferritin 130.0 - Retic count 0.9 - B12 523, folate 13.3 Hyponatremia - Continue to monitor HLD - Fenofibrate 145mg po HS - Niacin 1g po daily Hypothyroidism - Synthroid 175mcg daily - TSH 0.75, T4 1.31 Bipolar Disorder - Gabapentin 600mg po TID, 1200mg po HS held - Seroquel 450mg po HS - Lamictal 400mg po daily - Hydroxazine 100mg HS (held due to increased QTc prolongation with azithromycin ) Prophylaxis - Lovenox 40 mg SC daily - Pepcid 20mg po daily Dispo: Pending picc line insertion for antibiotics and subacute rehab placement. Kt Page PGY-1
[2018-06-04 07:06] LABS: INR 1.3; PROTHROMBIN TIME 14.1 SECONDS (9.7-12.2)
[2018-06-04 07:10] LABS: BASO % 0.8 % (0.0-2.0); EOS # 0.3 K/uL (0.0-0.7); EOS % 5.7 % (0.0-4.0); HEMOGLOBIN 8.6 g/dL (12.0-18.0); LYMPH # 0.7 K/uL (1.0-4.3); LYMPH % 12.1 % (20.0-40.0); MEAN CELL VOLUME 82.2 fL (80.0-94.0); MEAN CORPUSCULAR HEMOGLOBIN 26.9 pg (27.0-31.0); MEAN CORPUSCULAR HGB CONC 32.7 g/dL (33.0-37.0); MEAN PLATELET VOLUME 6.9 fL (7.2-11.7); MONO # 0.6 K/uL (0.0-0.8); MONO % 10.8 % (0.0-10.0); NEUT # 4.1 K/uL (1.8-7.0); NEUT % 70.6 % (50.0-75.0); NRBC % 0.1 % (0.0-2.0); RBC 3.19 Mil/uL (4.40-5.90); RED CELL DISTRIBUTION WIDTH 17.7 % (11.5-14.5); WHITE BLOOD COUNT 5.8 K/uL (4.8-10.8)
[2018-06-04 07:21] LABS: ALB/GLOB RATIO 0.8 (1.0-2.1); ALBUMIN 2.2 g/dL (3.5-5.0); ALT/SGPT 57 U/L (21-72); AST/SGOT 28 U/L (17-59); BLOOD UREA NITROGEN 5 mg/dL (9-20); CALCIUM 7.9 mg/dl (8.6-10.4); GFR AFRICAN-AMERICAN > 60; GFR NON-AFRICAN AMERICAN > 60
[2018-06-04] MEDS: Vancomycin 1 gm/NS 200 ml 1 GM/200 ML BAG IVPB SCH ×3 (08:30→20:20)
--- NOTE | 2018-06-04 09:21 | CP.PCM.PN ---
Subjective - Date & Time of Evaluation Date of Evaluation: 06/04/18 Time of Evaluation: 06:40 - Subjective Subjective: Patient seen and examined. No acute events over night. S/p chest tube removal. No complaints. States he is feeling much better. Objective - Vital Signs/Intake and Output Vital Signs (last 24 hours): Temp Pulse Resp BP Pulse Ox 98.2 F 79 18 109/72 100 06/04/18 07:00 06/04/18 07:05 06/04/18 07:00 06/04/18 07:00 06/04/18 07:00 Intake and Output: 06/04/18 06/04/18 06:59 18:59 Intake Total 395 Balance 395 - Medications Medications: Current Medications Albuterol/Ipratropium (Duoneb 3 Mg/0.5 Mg (3 Ml) Ud) 3 ml INH RQ4 [facility] Last Admin: 06/04/18 04:00 Dose: Not Given Docusate Sodium (Colace) 100 mg PO BID [facility] Last Admin: 06/03/18 17:30 Dose: 100 mg Enoxaparin Sodium (Lovenox) 40 mg SC DAILY [facility] Last Admin: 06/03/18 09:21 Dose: 40 mg Famotidine (Pepcid) 20 mg PO DAILY [facility] Last Admin: 06/03/18 09:24 Dose: 20 mg Fenofibrate (Tricor) 145 mg PO QPM [facility] Last Admin: 06/03/18 17:30 Dose: 145 mg Azithromycin 500 mg/ Sodium (Chloride) 250 mls @ 250 mls/hr IVPB DAILY [facility] PRN Reason: Protocol Last Admin: 06/03/18 09:26 Dose: 250 mls/hr Piperacillin Sod/Tazobactam Sod (Zosyn 3.375 Gm Iv Premix) 3.375 gm in 50 mls @ 100 mls/hr IVPB Q8H [facility] PRN Reason: Protocol Last Admin: 06/04/18 02:22 Dose: 100 mls/hr Vancomycin/Sodium Chloride (Vancomycin 1 Gm/Ns 200 Ml) 1 gm in 200 mls @ 133 mls/hr IVPB Q12H [facility] PRN Reason: Protocol Stop: 06/06/18 21:16 Last Admin: 06/03/18 21:19 Dose: 133 mls/hr Lactobacillus Acidophilus (Bacid Acidophilus) 1 cap PO BID [facility] Lamotrigine (Lamictal) 400 mg PO DAILY [facility] Last Admin: 06/03/18 09:23 Dose: 400 mg Levothyroxine Sodium (Synthroid) 175 mcg PO DAILY@0630 [facility] Last Admin: 06/04/18 06:30 Dose: 175 mcg Montelukast Sodium (Singulair) 10 mg PO [facility] Last Admin: 06/03/18 21:20 Dose: 10 mg Niacin (Niacin) 1,000 mg PO DAILY [facility] Last Admin: 06/03/18 09:23 Dose: 1,000 mg Ynlub-0-Joax Ethyl Esters (Lovaza) 1 gm PO BID [facility] Last Admin: 06/03/18 17:30 Dose: 1 gm Quetiapine Fumarate (Seroquel Xr) 450 mg PO [facility] Last Admin: 06/03/18 21:20 Dose: 450 mg - Labs Labs: 06/04/18 06:56 06/04/18 06:56 PT 14.1 SECONDS (9.7-12.2) H 06/04/18 06:56 INR 1.3 06/04/18 06:56 APTT 28 SECONDS (21-34) 05/31/18 06:08 - Constitutional Appears: No Acute Distress - Head Exam Head Exam: NORMOCEPHALIC - Eye Exam Eye Exam: Normal appearance - ENT Exam ENT Exam: Mucous Membranes Moist - Respiratory Exam Respiratory Exam: NORMAL BREATHING PATTERN - Cardiovascular Exam Cardiovascular Exam: +S1, +S2 - GI/Abdominal Exam GI & Abdominal Exam: Soft - Neurological Exam Neurological Exam: Alert, Awake, Oriented x3 - Psychiatric Exam Psychiatric exam: Normal Mood - Skin Skin Exam: Dry, Warm Assessment and Plan - Assessment and Plan (Free Text) Assessment: 52M w. L empyema s/p thoracotomy and decortication, POD#4 Plan: -s/p CT removal -CXR reviewed, stable -c/w current medical management -d/w attending -No plans for further surgical intervention -Lung cultures: +Strep viridans D/w Dr. Ellen Sosa PGY3
[2018-06-04] MEDS: Lactobacillus Acidophilus 500 MU Cap PO SCH ×2 (09:55→17:47)
[2018-06-04] MEDS: Omega-3-Acid Ethyl Esters 1 GM Cap PO SCH ×2 (09:56→17:47)
[2018-06-04] MEDS: Enoxaparin 40 mg Syringe SC SCH (09:56)
[2018-06-04] MEDS: Azithromycin 500 MG in Sodium Chloride 0.9% 250 ML IVPB SCH (10:03)
--- NOTE | 2018-06-04 10:51 | CP.PCM.PN ---
<Radha Rodriguez - Last Filed: 06/04/18 16:31> Subjective - Date & Time of Evaluation Date of Evaluation: 06/04/18 Time of Evaluation: 08:00 - Subjective Subjective: Hem/Onc Consult Note: Dr. Briones's Service Patient was seen and examined at bedside in the AM. Patient states he is feeling much better after they removed the chest tube yesterday evening. He states he has been a bit constipated as his last bowel movement was Sunday. He denies chest pain, shortness of breath, difficulty breathing, nausea, vomiting, fever or chills. Objective - Vital Signs/Intake and Output Vital Signs (last 24 hours): Temp Pulse Resp BP Pulse Ox 98.2 F 79 18 109/72 100 06/04/18 07:00 06/04/18 07:05 06/04/18 07:00 06/04/18 07:00 06/04/18 07:00 Intake and Output: 06/04/18 06/04/18 06:59 18:59 Intake Total 395 Balance 395 - Medications Medications: Current Medications Albuterol/Ipratropium (Duoneb 3 Mg/0.5 Mg (3 Ml) Ud) 3 ml INH RQ4 [facility] Last Admin: 06/04/18 09:27 Dose: 3 ml Docusate Sodium (Colace) 100 mg PO BID [facility] Last Admin: 06/04/18 09:55 Dose: 100 mg Enoxaparin Sodium (Lovenox) 40 mg SC DAILY [facility] Last Admin: 06/04/18 09:56 Dose: 40 mg Famotidine (Pepcid) 20 mg PO DAILY [facility] Last Admin: 06/04/18 09:56 Dose: 20 mg Fenofibrate (Tricor) 145 mg PO QPM [facility] Last Admin: 06/03/18 17:30 Dose: 145 mg Azithromycin 500 mg/ Sodium (Chloride) 250 mls @ 250 mls/hr IVPB DAILY [facility] PRN Reason: Protocol Last Admin: 06/04/18 10:03 Dose: 250 mls/hr Piperacillin Sod/Tazobactam Sod (Zosyn 3.375 Gm Iv Premix) 3.375 gm in 50 mls @ 100 mls/hr IVPB Q8H [facility] PRN Reason: Protocol Last Admin: 06/04/18 02:22 Dose: 100 mls/hr Vancomycin/Sodium Chloride (Vancomycin 1 Gm/Ns 200 Ml) 1 gm in 200 mls @ 133 mls/hr IVPB Q12H [facility] PRN Reason: Protocol Stop: 06/06/18 21:16 Last Admin: 06/03/18 21:19 Dose: 133 mls/hr Lactobacillus Acidophilus (Bacid Acidophilus) 1 cap PO BID [facility] Last Admin: 06/04/18 09:55 Dose: 1 cap Lamotrigine (Lamictal) 400 mg PO DAILY [facility] Last Admin: 06/04/18 09:55 Dose: 400 mg Levothyroxine Sodium (Synthroid) 175 mcg PO DAILY@0630 [facility] Last Admin: 06/04/18 06:30 Dose: 175 mcg Montelukast Sodium (Singulair) 10 mg PO [facility] Last Admin: 06/03/18 21:20 Dose: 10 mg Niacin (Niacin) 1,000 mg PO DAILY [facility] Last Admin: 06/04/18 10:19 Dose: 1,000 mg Zlyhu-4-Adpv Ethyl Esters (Lovaza) 1 gm PO BID [facility] Last Admin: 06/04/18 09:56 Dose: 1 gm Quetiapine Fumarate (Seroquel Xr) 450 mg PO [facility] Last Admin: 06/03/18 21:20 Dose: 450 mg - Labs Labs: 06/04/18 06:56 06/04/18 06:56 PT 14.1 SECONDS (9.7-12.2) H 06/04/18 06:56 INR 1.3 06/04/18 06:56 APTT 28 SECONDS (21-34) 05/31/18 06:08 - Constitutional Appears: No Acute Distress - Head Exam Head Exam: ATRAUMATIC, NORMAL INSPECTION - Eye Exam Eye Exam: EOMI, Normal appearance, PERRL Pupil Exam: NORMAL ACCOMODATION - ENT Exam ENT Exam: Mucous Membranes Moist - Respiratory Exam Respiratory Exam: Decreased Breath Sounds (left lung decreased breath sounds ), NORMAL BREATHING PATTERN - Cardiovascular Exam Cardiovascular Exam: REGULAR RHYTHM, +S1, +S2 - GI/Abdominal Exam GI & Abdominal Exam: Soft, Normal Bowel Sounds. absent: Tenderness - Extremities Exam Extremities Exam: Normal Inspection - Neurological Exam Neurological Exam: Alert, Awake, Oriented x3 - Psychiatric Exam Psychiatric exam: Normal Affect, Normal Mood Assessment and Plan - Assessment and Plan (Free Text) Assessment: Anemia possibly secondary to Anemia of Chronic Disease - Reticulocyte index: 0.37--> hypoproliferative erythroid response - H/H 7.1/21.4 - Stool occult: negative - B12, Folate, Ferritin all WNL - f/u electrophoresis - Continue to Monitor Left Upper Lung Effusion Infection vs. Malignancy - Chest CT: Moderate to large left pleural effusion with localized effusion at the mid and upper portion of the left chest cavity compressing on the left lung. Foci of gas in the mid and lower portion of the left pleural effusion and possible abscess formation at the left lower pleural space or less likely in the left lung lower lobe as described above. Compressive atelectasis of the left lung more prominent in the left lower lobe. Small ground-glass opacities seen in the right lung may represent lung edema or congestion. Splenomegaly. - 05/31/18 s/p evacuation of empyema - chest tube was placed; chest tube removed 06/03/18 - pathology results of left lung decorticated tissue: fragments of fibroconnective tissue with acute and chronic inflammation. Abscess formation and granulation. - Will Continue to Monitor Case discussed with Dr. Anali Rodriguez PGY-2 <Cristian Briones - Last Filed: 06/04/18 17:07> Objective - Vital Signs/Intake and Output Vital Signs (last 24 hours): Temp Pulse Resp BP Pulse Ox 98.1 F 99 H 20 118/77 100 06/04/18 15:00 06/04/18 16:00 06/04/18 15:00 06/04/18 15:00 06/04/18 15:00 Intake and Output: 06/04/18 06/04/18 06:59 18:59 Intake Total 395 500 Balance 395 500 - Medications Medications: Current Medications Albuterol/Ipratropium (Duoneb 3 Mg/0.5 Mg (3 Ml) Ud) 3 ml INH RQ4 [facility] Last Admin: 06/04/18 16:02 Dose: 3 ml Docusate Sodium (Colace) 100 mg PO BID [facility] Last Admin: 06/04/18 09:55 Dose: 100 mg Enoxaparin Sodium (Lovenox) 40 mg SC DAILY [facility] Last Admin: 06/04/18 09:56 Dose: 40 mg Famotidine (Pepcid) 20 mg PO DAILY [facility] Last Admin: 06/04/18 09:56 Dose: 20 mg Fenofibrate (Tricor) 145 mg PO QPM [facility] Last Admin: 06/03/18 17:30 Dose: 145 mg Azithromycin 500 mg/ Sodium (Chloride) 250 mls @ 250 mls/hr IVPB DAILY [facility] PRN Reason: Protocol Last Admin: 06/04/18 10:03 Dose: 250 mls/hr Piperacillin Sod/Tazobactam Sod (Zosyn 3.375 Gm Iv Premix) 3.375 gm in 50 mls @ 100 mls/hr IVPB Q8H [facility] PRN Reason: Protocol Last Admin: 06/04/18 12:00 Dose: 100 mls/hr Vancomycin/Sodium Chloride (Vancomycin 1 Gm/Ns 200 Ml) 1 gm in 200 mls @ 133 mls/hr IVPB Q12H [facility] PRN Reason: Protocol Stop: 06/06/18 21:16 Last Admin: 06/04/18 08:30 Dose: 133 mls/hr Lactobacillus Acidophilus (Bacid Acidophilus) 1 cap PO BID [facility] Last Admin: 06/04/18 09:55 Dose: 1 cap Lamotrigine (Lamictal) 400 mg PO DAILY [facility] Last Admin: 06/04/18 09:55 Dose: 400 mg Levothyroxine Sodium (Synthroid) 175 mcg PO DAILY@0630 [facility] Last Admin: 06/04/18 06:30 Dose: 175 mcg Montelukast Sodium (Singulair) 10 mg PO [facility] Last Admin: 06/03/18 21:20 Dose: 10 mg Niacin (Niacin) 1,000 mg PO DAILY [facility] Last Admin: 06/04/18 10:19 Dose: 1,000 mg Nqpbh-3-Vxji Ethyl Esters (Lovaza) 1 gm PO BID [facility] Last Admin: 06/04/18 09:56 Dose: 1 gm Quetiapine Fumarate (Seroquel Xr) 450 mg PO [facility] Last Admin: 06/03/18 21:20 Dose: 450 mg - Labs Labs: 06/04/18 06:56 06/04/18 06:56 PT 14.1 SECONDS (9.7-12.2) H 06/04/18 06:56 INR 1.3 06/04/18 06:56 APTT 28 SECONDS (21-34) 05/31/18 06:08 Assessment and Plan (1) Cavitary lesion of lung Status: Acute (2) Anemia Status: Acute - Assessment and Plan (Free Text) Assessment: Pt seen and examined, agree with residents note.
--- NOTE | 2018-06-04 14:41 | CP.PCM.PN ---
Subjective - Date & Time of Evaluation Date of Evaluation: 06/04/18 Time of Evaluation: 13:20 - Subjective Subjective: patient seen and examined Sitting comfortably, no shortness of breath Chest tube removed yesterday Echocardiogram done Culture positive for strep viridans Continue Zosyn Followup chest x-ray Objective - Vital Signs/Intake and Output Vital Signs (last 24 hours): Temp Pulse Resp BP Pulse Ox 98.2 F 79 18 109/72 100 06/04/18 07:00 06/04/18 07:05 06/04/18 07:00 06/04/18 07:00 06/04/18 07:00 Intake and Output: 06/04/18 06/04/18 06:59 18:59 Intake Total 395 500 Balance 395 500 - Medications Medications: Current Medications Albuterol/Ipratropium (Duoneb 3 Mg/0.5 Mg (3 Ml) Ud) 3 ml INH RQ4 [facility] Last Admin: 06/04/18 13:24 Dose: 3 ml Docusate Sodium (Colace) 100 mg PO BID [facility] Last Admin: 06/04/18 09:55 Dose: 100 mg Enoxaparin Sodium (Lovenox) 40 mg SC DAILY [facility] Last Admin: 06/04/18 09:56 Dose: 40 mg Famotidine (Pepcid) 20 mg PO DAILY [facility] Last Admin: 06/04/18 09:56 Dose: 20 mg Fenofibrate (Tricor) 145 mg PO QPM [facility] Last Admin: 06/03/18 17:30 Dose: 145 mg Azithromycin 500 mg/ Sodium (Chloride) 250 mls @ 250 mls/hr IVPB DAILY [facility] PRN Reason: Protocol Last Admin: 06/04/18 10:03 Dose: 250 mls/hr Piperacillin Sod/Tazobactam Sod (Zosyn 3.375 Gm Iv Premix) 3.375 gm in 50 mls @ 100 mls/hr IVPB Q8H [facility] PRN Reason: Protocol Last Admin: 06/04/18 02:22 Dose: 100 mls/hr Vancomycin/Sodium Chloride (Vancomycin 1 Gm/Ns 200 Ml) 1 gm in 200 mls @ 133 mls/hr IVPB Q12H [facility] PRN Reason: Protocol Stop: 06/06/18 21:16 Last Admin: 06/03/18 21:19 Dose: 133 mls/hr Lactobacillus Acidophilus (Bacid Acidophilus) 1 cap PO BID [facility] Last Admin: 06/04/18 09:55 Dose: 1 cap Lamotrigine (Lamictal) 400 mg PO DAILY [facility] Last Admin: 06/04/18 09:55 Dose: 400 mg Levothyroxine Sodium (Synthroid) 175 mcg PO DAILY@0630 [facility] Last Admin: 06/04/18 06:30 Dose: 175 mcg Montelukast Sodium (Singulair) 10 mg PO [facility] Last Admin: 06/03/18 21:20 Dose: 10 mg Niacin (Niacin) 1,000 mg PO DAILY [facility] Last Admin: 06/04/18 10:19 Dose: 1,000 mg [id number] Ethyl Esters (Lovaza) 1 gm PO BID [facility] Last Admin: 06/04/18 09:56 Dose: 1 gm Quetiapine Fumarate (Seroquel Xr) 450 mg PO [facility] Last Admin: 06/03/18 21:20 Dose: 450 mg - Labs Labs: 06/04/18 06:56 06/04/18 06:56 PT 14.1 SECONDS (9.7-12.2) H 06/04/18 06:56 INR 1.3 06/04/18 06:56 APTT 28 SECONDS (21-34) 05/31/18 06:08 Assessment and Plan (1) Pleural effusion Status: Acute (2) Cavitary lesion of lung Status: Acute (3) Pneumonia Status: Acute
[2018-06-04 17:24] LABS: HEMOGLOBIN A 97.3 Percent (>96.0); HEMOGLOBIN A2 1.7 Percent (1.8-3.5)
[2018-06-04] MEDS ORDERED: Oxycodone/Acetaminophen 5/325 mg Tab PO PRN (18:14)
--- NOTE | 2018-06-04 21:33 | CP.PCM.PN ---
Subjective - Date & Time of Evaluation Date of Evaluation: 06/04/18 Time of Evaluation: 14:00 - Subjective Subjective: dcitated Objective - Vital Signs/Intake and Output Vital Signs (last 24 hours): Temp Pulse Resp BP Pulse Ox 98.1 F 99 H 20 118/77 100 06/04/18 15:00 06/04/18 16:00 06/04/18 15:00 06/04/18 15:00 06/04/18 15:00 Intake and Output: 06/04/18 06/05/18 18:59 06:59 Intake Total 500 Balance 500 - Medications Medications: Current Medications Albuterol/Ipratropium (Duoneb 3 Mg/0.5 Mg (3 Ml) Ud) 3 ml INH RQ4 [facility] Last Admin: 06/04/18 20:24 Dose: 3 ml Docusate Sodium (Colace) 100 mg PO BID [facility] Last Admin: 06/04/18 17:47 Dose: 100 mg Enoxaparin Sodium (Lovenox) 40 mg SC DAILY [facility] Last Admin: 06/04/18 09:56 Dose: 40 mg Famotidine (Pepcid) 20 mg PO DAILY [facility] Last Admin: 06/04/18 09:56 Dose: 20 mg Fenofibrate (Tricor) 145 mg PO QPM [facility] Last Admin: 06/04/18 17:47 Dose: 145 mg Azithromycin 500 mg/ Sodium (Chloride) 250 mls @ 250 mls/hr IVPB DAILY [facility] PRN Reason: Protocol Last Admin: 06/04/18 10:03 Dose: 250 mls/hr Piperacillin Sod/Tazobactam Sod (Zosyn 3.375 Gm Iv Premix) 3.375 gm in 50 mls @ 100 mls/hr IVPB Q8H [facility] PRN Reason: Protocol Last Admin: 06/04/18 18:36 Dose: 100 mls/hr Vancomycin/Sodium Chloride (Vancomycin 1 Gm/Ns 200 Ml) 1 gm in 200 mls @ 133 mls/hr IVPB Q12H [facility] PRN Reason: Protocol Stop: 06/06/18 21:16 Last Admin: 06/04/18 20:20 Dose: 133 mls/hr Lactobacillus Acidophilus (Bacid Acidophilus) 1 cap PO BID [facility] Last Admin: 06/04/18 17:47 Dose: 1 cap Lamotrigine (Lamictal) 400 mg PO DAILY [facility] Last Admin: 06/04/18 09:55 Dose: 400 mg Levothyroxine Sodium (Synthroid) 175 mcg PO DAILY@0630 [facility] Last Admin: 06/04/18 06:30 Dose: 175 mcg Montelukast Sodium (Singulair) 10 mg PO HS [facility] Last Admin: 06/03/18 21:20 Dose: 10 mg Niacin (Niacin) 1,000 mg PO DAILY [facility] Last Admin: 06/04/18 10:19 Dose: 1,000 mg [id number] Ethyl Esters (Lovaza) 1 gm PO BID [facility] Last Admin: 06/04/18 17:47 Dose: 1 gm Oxycodone/Acetaminophen (Percocet 5/325 Mg Tab) 1 tab PO Q4H PRN PRN Reason: Pain, moderate (4-7) Stop: 06/07/18 18:15 Last Admin: 06/04/18 18:34 Dose: 1 tab Oxycodone/Acetaminophen (Percocet 5/325 Mg Tab) 2 tab PO Q4H PRN PRN Reason: Pain, severe (8-10) Stop: 06/07/18 18:17 Last Admin: 06/04/18 20:28 Dose: 2 tab Quetiapine Fumarate (Seroquel Xr) 450 mg PO [facility] Last Admin: 06/03/18 21:20 Dose: 450 mg - Labs Labs: 06/04/18 06:56 06/04/18 06:56 PT 14.1 SECONDS (9.7-12.2) H 06/04/18 06:56 INR 1.3 06/04/18 06:56 APTT 28 SECONDS (21-34) 05/31/18 06:08
[2018-06-04] MEDS: QUEtiapine 150 mg XR Tab PO SCH (22:32)
--- NOTE | 2018-06-05 02:57 | PN ---
Copied To: Melody Cruz MD Attending MD: Melody Cruz MD DATE: 06/04/2018 SUBJECTIVE: The patient is seen today. He is alert and awake. He was in no distress, and his chest tube has been removed but he said that he still is not taking deep breaths. PHYSICAL EXAMINATION: VITAL SIGNS: His T-max was 98.1, pulse 90, blood pressure 118/77, respirations are 20. HEENT: Head is atraumatic. NECK: Supple. LUNGS: Have decreased breath sounds bilaterally. He has a dressing on the left chest wall as he had decortication done. HEART: S1, S2 regular. ABDOMEN: Soft, nontender. No guarding. No rigidity present. EXTREMITIES: Have mild edema present. Labs are noted. Labs show white count is 5.8, hemoglobin 8.6, hematocrit 26.2, platelet count is 528, is little elevated. Chemistry shows sodium is 136, potassium 3.7, chloride is 99, bicarb is 34, creatinine 0.6. Micro kelly, his tissue has grown Staph viridans and the sputum had Staph aureus, and he had an echo done. Echo shows poor window, normal-sized LA, LV, and RA, RV; mild concentric LVH with normal left ventricle systolic and diastolic function. Aortic and pulmonary valve not well seen but probably normal. Mitral appears normal. Trace MR and normal-sized aortic root and IVC. No pericardial effusion seen. The lab was not that bad but he has Staph viridans, and we are going to give him Zosyn to continue to let him heal. He came in on 05/27/2018 and he went to the OR, OR was 06/03/2018, so I think we should give him at least 2 weeks from 06/03/2018 to heal, the Zosyn, and he also had mycoplasma positive, so we will leave him on Zithromax to complete 10 days from 06/03/2018. We will follow as needed. He also needs a PICC it seems if he needs to go to a rehab. We will follow. Patient had abscess. Actually, he had empyema and is status post decortication and will need IV antibiotics. Melody Cruz MD [facility] # [id number]
[2018-06-05] MEDS: Piperacill/Tazo 3.375gm in Dex 3.375 GM/50 ML BAG IVPB SCH ×3 (04:00→18:21)
[2018-06-05] MEDS: Albuterol-Ipratrop 3 mg / 0.5 (3 ml) UD INH SCH ×5 (04:40→19:40)
[2018-06-05] MEDS: Levothyroxine 175 MCG TAB PO SCH (06:10)
--- NOTE | 2018-06-05 08:33 | RAD ---
Date of service: 06/04/2018 HISTORY: progression of evac of empyema, left CT COMPARISON: 06/03/2018 at 19:49 hours FINDINGS: LUNGS: The ellipsoid-shaped left pleural based opacity - an inferred loculated left pleural effusion blends with a left costophrenic angle left pleural effusion. Sutures project over the left inferior thorax as before. PLEURA: Left pleural effusion, very slightly increased since the prior exam No pneumothorax apparent. CARDIOVASCULAR: Heart size normal. Asymmetrical left pulmonary interstitial edema probable - similar-appearing OSSEOUS STRUCTURES: No significant abnormalities. VISUALIZED UPPER ABDOMEN: Normal. OTHER FINDINGS: None. IMPRESSION: The inferred loculated left pleural effusion is similar-appearing. There is interval slight increase in the prior left basal pleural effusion Other findings as above.
[2018-06-05] MEDS: Vancomycin 1 gm/NS 200 ml 1 GM/200 ML BAG IVPB SCH (09:00)
[2018-06-05] MEDS: Lactobacillus Acidophilus 500 MU Cap PO SCH ×2 (10:25→18:05)
[2018-06-05] MEDS: Enoxaparin 40 mg Syringe SC SCH (10:26)
[2018-06-05] MEDS: Azithromycin 500 MG in Sodium Chloride 0.9% 250 ML IVPB SCH (10:30)
[2018-06-05] MEDS: Omega-3-Acid Ethyl Esters 1 GM Cap PO SCH ×2 (10:58→18:05)
--- NOTE | 2018-06-05 12:20 | CP.PCM.PCO ---
Physician Communication Note - Physician Communication Note Physician Communication Note: Upon discharge patient to receive 14 days of Zosyn 3.375 grams IV Q8H.
--- NOTE | 2018-06-05 13:19 | CP.PCM.PN ---
Subjective - Date & Time of Evaluation Date of Evaluation: 06/05/18 Time of Evaluation: 07:00 - Subjective Subjective: Resident Progress Note for Hospitalist Service Patient examined at bedside. No acute events overnight. States that he is feeling well and ready to be discharged. He is eating and drinking well. Has not had a bowel movement yet. Denies headache, dizziness, chest pain, shortness of breath, abdominal pain, dysuria. Objective - Vital Signs/Intake and Output Vital Signs (last 24 hours): Temp Pulse Resp BP Pulse Ox 98.5 F 81 18 113/76 98 06/05/18 07:00 06/05/18 07:55 06/05/18 07:00 06/05/18 07:00 06/05/18 07:00 Intake and Output: 06/05/18 06/05/18 06:59 18:59 Intake Total 980 Balance 980 - Medications Medications: Current Medications Albuterol/Ipratropium (Duoneb 3 Mg/0.5 Mg (3 Ml) Ud) 3 ml INH RQ4 [facility] Last Admin: 06/05/18 11:46 Dose: 3 ml Docusate Sodium (Colace) 100 mg PO BID [facility] Last Admin: 06/05/18 10:25 Dose: 100 mg Enoxaparin Sodium (Lovenox) 40 mg SC DAILY [facility] Last Admin: 06/05/18 10:26 Dose: 40 mg Famotidine (Pepcid) 20 mg PO DAILY [facility] Last Admin: 06/05/18 10:25 Dose: 20 mg Fenofibrate (Tricor) 145 mg PO QPM [facility] Last Admin: 06/04/18 17:47 Dose: 145 mg Azithromycin 500 mg/ Sodium (Chloride) 250 mls @ 250 mls/hr IVPB DAILY [facility] PRN Reason: Protocol Last Admin: 06/05/18 10:30 Dose: 250 mls/hr Piperacillin Sod/Tazobactam Sod (Zosyn 3.375 Gm Iv Premix) 3.375 gm in 50 mls @ 100 mls/hr IVPB Q8H [facility] PRN Reason: Protocol Last Admin: 06/05/18 12:37 Dose: 100 mls/hr Vancomycin/Sodium Chloride (Vancomycin 1 Gm/Ns 200 Ml) 1 gm in 200 mls @ 133 mls/hr IVPB Q12H [facility] PRN Reason: Protocol Stop: 06/06/18 21:16 Last Admin: 06/05/18 09:00 Dose: 133 mls/hr Lactobacillus Acidophilus (Bacid Acidophilus) 1 cap PO BID [facility] Last Admin: 06/05/18 10:25 Dose: 1 cap Lamotrigine (Lamictal) 400 mg PO DAILY [facility] Last Admin: 06/05/18 10:25 Dose: 400 mg Levothyroxine Sodium (Synthroid) 175 mcg PO DAILY@0630 [facility] Last Admin: 06/05/18 06:10 Dose: 175 mcg Montelukast Sodium (Singulair) 10 mg PO [facility] Last Admin: 06/04/18 22:32 Dose: 10 mg Niacin (Niacin) 1,000 mg PO DAILY [facility] Last Admin: 06/05/18 10:25 Dose: 1,000 mg [id number] Ethyl Esters (Lovaza) 1 gm PO BID [facility] Last Admin: 06/05/18 10:58 Dose: 1 gm Oxycodone/Acetaminophen (Percocet 5/325 Mg Tab) 1 tab PO Q4H PRN PRN Reason: Pain, moderate (4-7) Stop: 06/07/18 18:15 Last Admin: 06/04/18 18:34 Dose: 1 tab Oxycodone/Acetaminophen (Percocet 5/325 Mg Tab) 2 tab PO Q4H PRN PRN Reason: Pain, severe (8-10) Stop: 06/07/18 18:17 Last Admin: 06/04/18 20:28 Dose: 2 tab Quetiapine Fumarate (Seroquel Xr) 450 mg PO [facility] Last Admin: 06/04/18 22:32 Dose: 450 mg - Labs Labs: 06/04/18 06:56 06/04/18 06:56 PT 14.1 SECONDS (9.7-12.2) H 06/04/18 06:56 INR 1.3 06/04/18 06:56 APTT 28 SECONDS (21-34) 05/31/18 06:08 - Additional Findings Additional findings: - Constitutional Appears: Non-toxic, No Acute Distress - Head Exam Head Exam: ATRAUMATIC, NORMOCEPHALIC - Eye Exam Eye Exam: EOMI, Normal appearance - ENT Exam ENT Exam: Mucous Membranes Moist - Neck Exam Neck Exam: Normal Inspection - Respiratory Exam Respiratory Exam: Decreased Breath Sounds (improved), NORMAL BREATHING PATTERN. absent: Rhonchi, Wheezes, Respiratory Distress - Cardiovascular Exam Cardiovascular Exam: REGULAR RHYTHM, +S1, +S2 - GI/Abdominal Exam GI & Abdominal Exam: Soft, Normal Bowel Sounds. absent: Firm, Rigid, Tenderness - Extremities Exam Extremities Exam: Normal Capillary Refill, Normal Inspection. absent: Tenderness - Back Exam Back Exam: NORMAL INSPECTION - Neurological Exam Neurological Exam: Alert, Awake, Oriented x3 - Psychiatric Exam Psychiatric exam: Normal Affect, Normal Mood - Skin Skin Exam: Dry, Intact, Pallor Assessment and Plan - Assessment and Plan (Free Text) Plan: Pneumonia with large left pleural effusion - Azithromycin 500 mg IVPB daily - Zosyn 3.375 gm IVPB Q8H - Vancomycin 1 gm IVPB Q12H - 05/27 blood cultures negative x2 - Chest CT shows moderate to large left pleural effusion with localized effusion at the mid and upper portion of the left chest cavity compressing on the left lung. Foci of gas in mid and lower portion of left pleural effusion and possible abscess formation at left lower pleural space or less likely in left lung lower lobe as described above. Compressive atelectasis of left lung more prominent in left lower lobe. Small ground-glass opacities seen in right lung may represent lung edema or congestion. Splenomegaly. - Mycoplasma IgM positive - IR consulted. Recs appreciated. - Surgery consulted. Recs appreciated. - s/p thoracotomy with decortication and empyema evacuation - Pleural fluid: WBCs 83600 (H), RBCs 886630 (H), Total cell count 100 (H), Neutrophils 97.0 (H), Lymphocytes 1.0 (H), Monocyte/Macrophage 1 (H), pH 7.0 - 05/29 sputum culture grew s. aureus - 05/31 tissue cultures grew s. viridans - Pleural fluid culture prelim no growth after 2 days, no fungal elements Transaminitis - Hepatitis panel negative - HIV negative - Abdominal ultrasound shows increased echogenicity of the hepatic parenchymal cortex suggestive for fatty infiltration versus hepatic parenchymal disease. prominent liver and spleen as above. limited visualized of the pancreas. Anemia - Hgb 8.5, Hct 26.2 - FOBT negative - Iron <10, TIBC 266, % saturation 3.75, ferritin 130.0 - Retic count 0.9 - B12 523, folate 13.3 HLD - Fenofibrate 145mg po HS - Niacin 1g po daily Hypothyroidism - Synthroid 175mcg daily - TSH 0.75, T4 1.31 Bipolar Disorder - Gabapentin 600mg po TID, 1200mg po HS held - Seroquel 450mg po HS - Lamictal 400mg po daily - Hydroxazine 100mg HS (held due to increased QTc prolongation with azithromycin ) Prophylaxis - Lovenox 40 mg SC daily - Pepcid 20mg po daily Dispo: Pending picc line insertion for antibiotics tK Page PGY-1
[2018-06-05 15:13] LABS: CHOLESTEROL PLEURAL FLUID 47 mg/dL; GLUCOSE PLEURAL FLUID 19 mg/dL
[2018-06-05] MEDS ORDERED: POLYETHYLENE GLYCOL 3350 17 GM/Dose PACKET PO ONE ×2 (15:15→17:15)
[2018-06-05 16:19] VITALS: BP 114/71; RESP 20; TEMP 98.1; O2SAT 97
--- NOTE | 2018-06-05 16:29 | RAD ---
Chest x-ray single frontal view History: PICC line placement. Comparison: 06/04/2018 Findings: Right PICC line with tip extending to the right SVC. No evidence of postprocedure pneumothorax. Moderate loculated left pleural effusion. Consolidative changes in the left mid to lower lung zone. Surgical clips project over the left lower rukhsana thorax. Heart size within normal limits. Impression: Right PICC line with tip extending to the right SVC. No evidence of postprocedure pneumothorax. Moderate loculated left pleural effusion. Consolidative changes in the left mid to lower lung zone. Surgical clips project over the left lower rukhsana thorax.
--- NOTE | 2018-06-05 16:33 | CP.PCM.PN ---
Subjective - Date & Time of Evaluation Date of Evaluation: 06/05/18 Time of Evaluation: 14:20 - Subjective Subjective: PATIENT SEEN AND EXAMINED s/p thoracotomy with decortication and empyema evacuation on IV antibiotics Status post PICC line insertion Afebrile Denies any compressive Objective - Vital Signs/Intake and Output Vital Signs (last 24 hours): Temp Pulse Resp BP Pulse Ox 98.1 F 91 H 20 114/71 97 06/05/18 16:00 06/05/18 16:00 06/05/18 16:00 06/05/18 16:00 06/05/18 16:00 Intake and Output: 06/05/18 06/05/18 06:59 18:59 Intake Total 980 500 Balance 980 500 - Medications Medications: Current Medications Albuterol/Ipratropium (Duoneb 3 Mg/0.5 Mg (3 Ml) Ud) 3 ml INH RQ4 [facility] Last Admin: 06/05/18 11:46 Dose: 3 ml Azithromycin (Zithromax) 500 mg PO DAILY [facility] PRN Reason: Protocol Stop: 06/14/18 10:00 Docusate Sodium (Colace) 100 mg PO BID [facility] Last Admin: 06/05/18 10:25 Dose: 100 mg Enoxaparin Sodium (Lovenox) 40 mg SC DAILY [facility] Last Admin: 06/05/18 10:26 Dose: 40 mg Famotidine (Pepcid) 20 mg PO DAILY [facility] Last Admin: 06/05/18 10:25 Dose: 20 mg Fenofibrate (Tricor) 145 mg PO QPM [facility] Last Admin: 06/04/18 17:47 Dose: 145 mg Piperacillin Sod/Tazobactam Sod (Zosyn 3.375 Gm Iv Premix) 3.375 gm in 50 mls @ 100 mls/hr IVPB Q8H [facility] PRN Reason: Protocol Stop: 06/19/18 19:00 Last Admin: 06/05/18 12:37 Dose: 100 mls/hr Lactobacillus Acidophilus (Bacid Acidophilus) 1 cap PO BID [facility] Last Admin: 06/05/18 10:25 Dose: 1 cap Lamotrigine (Lamictal) 400 mg PO DAILY [facility] Last Admin: 06/05/18 10:25 Dose: 400 mg Levothyroxine Sodium (Synthroid) 175 mcg PO DAILY@0630 [facility] Last Admin: 06/05/18 06:10 Dose: 175 mcg Montelukast Sodium (Singulair) 10 mg PO [facility] Last Admin: 06/04/18 22:32 Dose: 10 mg Niacin (Niacin) 1,000 mg PO DAILY [facility] Last Admin: 06/05/18 10:25 Dose: 1,000 mg Mlaul-[id number]-[id number] Ethyl Esters (Lovaza) 1 gm PO BID [facility] Last Admin: 06/05/18 10:58 Dose: 1 gm Oxycodone/Acetaminophen (Percocet 5/325 Mg Tab) 1 tab PO Q4H PRN PRN Reason: Pain, moderate (4-7) Stop: 06/07/18 18:15 Last Admin: 06/04/18 18:34 Dose: 1 tab Oxycodone/Acetaminophen (Percocet 5/325 Mg Tab) 2 tab PO Q4H PRN PRN Reason: Pain, severe (8-10) Stop: 06/07/18 18:17 Last Admin: 06/04/18 20:28 Dose: 2 tab Quetiapine Fumarate (Seroquel Xr) 450 mg PO [facility] Last Admin: 06/04/18 22:32 Dose: 450 mg - Labs Labs: 06/04/18 06:56 06/04/18 06:56 PT 14.1 SECONDS (9.7-12.2) H 06/04/18 06:56 INR 1.3 06/04/18 06:56 APTT 28 SECONDS (21-34) 05/31/18 06:08 - Head Exam Head Exam: ATRAUMATIC, NORMOCEPHALIC - Eye Exam Eye Exam: Normal appearance - ENT Exam ENT Exam: Mucous Membranes Moist - Neck Exam Neck Exam: Full ROM, Normal Inspection - Respiratory Exam Respiratory Exam: Decreased Breath Sounds - Cardiovascular Exam Cardiovascular Exam: REGULAR RHYTHM - GI/Abdominal Exam GI & Abdominal Exam: Soft, Normal Bowel Sounds - Extremities Exam Extremities Exam: Full ROM, Normal Inspection Assessment and Plan (1) Pleural effusion Assessment & Plan: s/p thoracotomy with decortication and empyema evacuation continue IV antibiotics Status post PICC line insertion Status: Acute (2) Cavitary lesion of lung Status: Acute (3) Pneumonia Status: Acute
[2018-06-05 17:06] VITALS: PULSE 106
[2018-06-05] MEDS: Oxycodone/Acetaminophen 5/325 mg Tab PO PRN (18:20)
--- NOTE | 2018-06-05 19:06 | CP.PCM.DIS ---
Provider - Provider Date of Admission: 05/27/18 22:52 Attending physician: Dodie Montgomery DO Primary care physician: Dr. Gibbons Consults: Dr. Mira Hughes Time Spent in preparation of Discharge (in minutes): 45 Diagnosis - Discharge Diagnosis (1) Cavitary lesion of lung Status: Resolved (2) Pleural effusion Status: Resolved (3) Pneumonia Status: Resolved (4) Anemia Status: Chronic Hospital Course - Lab Results Lab Results: Micro Results 06/02/18 17:22 Pleural Fluid Gram Stain - Final 06/02/18 17:22 Pleural Fluid Body Fluid Culture - Preliminary NO GROWTH AFTER 3 DAYS 06/02/18 17:22 Other: Please Indicate Mycobacterial Culture - Preliminary 06/02/18 17:22 Pleural Fluid Fungal Culture - Preliminary 05/31/18 Unknown Lung Gram Stain - Final 05/31/18 Unknown Lung Tissue Culture - Final Streptococcus Viridans 05/31/18 Unknown Lung Gram Stain - Final 05/31/18 Unknown Lung Tissue Culture - Final Streptococcus Viridans 05/27/18 20:00 Blood-Venous Blood Culture - Final NO GROWTH AFTER 5 DAYS 05/27/18 20:00 Blood-Venous Gram Stain - Final TEST NOT PERFORMED 05/27/18 20:10 Blood-Venous Blood Culture - Final NO GROWTH AFTER 5 DAYS 05/27/18 20:10 Blood-Venous Gram Stain - Final TEST NOT PERFORMED 05/29/18 21:09 Sputum Gram Stain - Final 05/29/18 21:09 Sputum Sputum Culture - Final Staphylococcus Aureus Most Recent Lab Values WBC 5.8 K/uL (4.8-10.8) 06/04/18 06:56 RBC 3.19 Mil/uL (4.40-5.90) L 06/04/18 06:56 Hgb 8.6 g/dL (12.0-18.0) L 06/04/18 06:56 Hct 26.2 % (35.0-51.0) L 06/04/18 06:56 MCV 82.2 fL (80.0-94.0) 06/04/18 06:56 MCH 26.9 pg (27.0-31.0) L 06/04/18 06:56 MCHC 32.7 g/dL (33.0-37.0) L 06/04/18 06:56 RDW 17.7 % (11.5-14.5) H 06/04/18 06:56 Plt Count 528 K/uL (130-400) H 06/04/18 06:56 MPV 6.9 fL (7.2-11.7) L 06/04/18 06:56 Neut % (Auto) 70.6 % (50.0-75.0) 06/04/18 06:56 Lymph % (Auto) 12.1 % (20.0-40.0) L 06/04/18 06:56 Liberty % (Auto) 10.8 % (0.0-10.0) H 06/04/18 06:56 Eos % (Auto) 5.7 % (0.0-4.0) H 06/04/18 06:56 Baso % (Auto) 0.8 % (0.0-2.0) 06/04/18 06:56 Neut # (Auto) 4.1 K/uL (1.8-7.0) 06/04/18 06:56 Lymph # (Auto) 0.7 K/uL (1.0-4.3) L 06/04/18 06:56 Liberty # (Auto) 0.6 K/uL (0.0-0.8) 06/04/18 06:56 Eos # (Auto) 0.3 K/uL (0.0-0.7) 06/04/18 06:56 Baso # (Auto) 0.0 K/uL (0.0-0.2) 06/04/18 06:56 Neutrophils % (Manual) 78 % (50-75) H 06/03/18 07:15 Band Neutrophils % 1 % (0-2) 05/27/18 20:19 Lymphocytes % (Manual) 7 % (20-40) L 06/03/18 07:15 Monocytes % (Manual) 10 % (0-10) 06/03/18 07:15 Eosinophils % (Manual) 5 % (0-4) H 06/03/18 07:15 Myelocytes % 1 % (0-0) H 06/01/18 06:36 Toxic Granulation Present 06/02/18 08:21 Platelet Estimate Increased (NORMAL) H 06/03/18 07:15 Large Platelets Present 06/03/18 07:15 Polychromasia Slight 06/02/18 08:21 Hypochromasia (manual) Slight 06/03/18 07:15 Poikilocytosis (manual Slight 06/03/18 07:15 Anisocytosis (manual) Slight 06/03/18 07:15 Microcytosis (manual) Slight 05/31/18 06:08 Target Cells Slight 05/31/18 06:08 Tear Drop Cells Slight 05/30/18 06:32 Ovalocytes Slight 05/29/18 08:20 Retic Count 1.1 % (0.5-1.5) 05/29/18 08:20 Hemoglobin A 97.3 Percent (>96.0) 05/30/18 16:44 Hemoglobin A2 1.7 Percent (1.8-3.5) L 05/30/18 16:44 Hemoglobin C 0.0 Percent (0.0-0.0) 05/30/18 16:44 Hemoglobin F () <1.0 Percent (<2.0) 05/30/18 16:44 Hemoglobin S 0.0 Percent (0.0-0.0) 05/30/18 16:44 Variant Hemoglobin 0.0 Percent (0.0-0.0) 05/30/18 16:44 Hemoglobinopathy Red Blood Count 2.87 Mill/mcL (4.20-5.80) L 05/30/18 16:44 Hemoglobinopathy Hct 24.3 % (38.5-50.0) L 05/30/18 16:44 Hemoglobinopathy Hgb 7.2 g/dL (13.2-17.1) L 05/30/18 16:44 Hemoglobinopathy MCV 84.7 fL (80.0-100.0) 05/30/18 16:44 Hemoglobinopathy MCH 25.2 pg (27.0-33.0) L 05/30/18 16:44 Hemoglobinopathy RDW 19.6 % (11.0-15.0) H 05/30/18 16:44 Hemoglobinopathy Interp See note 05/30/18 16:44 PT 14.1 SECONDS (9.7-12.2) H 06/04/18 06:56 INR 1.3 06/04/18 06:56 APTT 28 SECONDS (21-34) 05/31/18 06:08 Sodium 136 mmol/L (132-148) 06/04/18 06:56 Potassium 3.7 mmol/L (3.6-5.2) 06/04/18 06:56 Chloride 99 mmol/L (98-107) 06/04/18 06:56 Carbon Dioxide 34 mmol/L (22-30) H 06/04/18 06:56 Anion Gap 7 (10-20) L 06/04/18 06:56 BUN 5 mg/dL (9-20) L 06/04/18 06:56 Creatinine 0.6 mg/dL (0.8-1.5) L 06/04/18 06:56 Est GFR ( Amer) > 60 06/04/18 06:56 Est GFR (Non-Af Amer) > 60 06/04/18 06:56 POC Glucose (mg/dL) 104 mg/dL (65-110) 06/04/18 16:20 Random Glucose 93 mg/dL (75-110) 06/04/18 06:56 Calcium 7.9 mg/dl (8.6-10.4) L 06/04/18 06:56 Phosphorus 2.7 mg/dL (2.5-4.5) 06/04/18 06:56 Magnesium 1.8 mg/dL (1.6-2.3) 06/04/18 06:56 Iron < 10 ug/dL (49-181) L 05/28/18 07:59 TIBC 266 ug/dL (250-450) 05/28/18 07:59 % Saturation 3.75 (20-55) L 05/28/18 07:59 Ferritin 130.0 ng/mL 05/28/18 07:59 Total Bilirubin 0.2 mg/dL (0.2-1.3) 06/04/18 06:56 AST 28 U/L (17-59) 06/04/18 06:56 ALT 57 U/L (21-72) 06/04/18 06:56 Alkaline Phosphatase 109 U/L (38-126) 06/04/18 06:56 Total Protein 5.0 g/dL (6.3-8.3) L 06/04/18 06:56 Albumin 2.2 g/dL (3.5-5.0) L 06/04/18 06:56 Globulin 2.8 gm/dL (2.2-3.9) 06/04/18 06:56 Albumin/Globulin Ratio 0.8 (1.0-2.1) L 06/04/18 06:56 Triglycerides 76 mg/dL (0-149) D 05/29/18 08:20 Cholesterol 57 mg/dL (0-199) 05/29/18 08:20 LDL Cholesterol Direct 32 mg/dL (0-129) 05/29/18 08:20 HDL Cholesterol 12 mg/dL (30-70) L 05/29/18 08:20 Vitamin B12 523 pg/mL (239-931) 05/29/18 08:20 Folate 13.3 ng/mL 05/29/18 08:20 Free T4 1.31 ng/dL (0.78-2.19) 05/28/18 07:59 TSH 3rd Generation 0.75 mIU/L (0.46-4.68) 05/28/18 07:59 Fluid Source Pleural 06/02/18 19:10 Fluid Appearance Bloody (CLEAR) 06/02/18 19:10 Fluid WBC 75737.0 /mm3 (0.0-300.0) H 06/02/18 19:10 Fluid RBC 157226.0 /mm3 (0.0-0.0) H 06/02/18 19:10 Fluid Tot Cell Count 100 (0-0) H 06/02/18 19:10 Fluid Neutrophils 97.0 % (0-0) H 06/02/18 19:10 Fluid Lymphocytes 1.0 % (0-0) H 06/02/18 19:10 Fld Monocyte/Macrophag 1 % (0-0) H 06/02/18 19:10 Fluid Comment 06/02/18 19:10 Pleural pH 7.0 06/02/18 19:41 Pleural Glucose 19 mg/dL 06/02/18 19:41 Pleural Cholesterol 47 mg/dL 06/02/18 19:41 Pleural Triglycerides 32 mg/dL 06/02/18 19:41 Pleur Adenosine Deamin 121.2 U/L (<9.2) H 06/02/18 19:41 Stool Occult Blood Negative (NEGATIVE) 05/27/18 22:41 Hepatitis A IgM Ab Negative (NEGATIVE) 05/30/18 06:32 Hep Bs Antigen Negative (NEGATIVE) 05/30/18 06:32 Hep B Core IgM Ab Negative (NEGATIVE) 05/30/18 06:32 Hepatitis C Antibody Negative (NEGATIVE) 05/30/18 06:32 HIV 1&2 Antibody Screen Negative (NEGATIVE) 05/30/18 06:32 Ur L.pneumophila Ag Negative (NEGATIVE) 05/28/18 11:00 Mycoplasma pneumon IgM Positive (NEGATIVE) H 05/28/18 13:49 Blood Type AB POSITIVE 05/30/18 11:35 Antibody Screen Negative 05/30/18 11:35 - Hospital Course Hospital Course: On admission: Patient is a 52 y/o M with PMHx of HLD, hypothyroidism, and bipolar disorder who presents today after being told to come to the ER by urgent care for a pleural effusion of the left lung. Patient has been visiting family in [place] and about 1 week ago developed a cough with clear sputum and nasal congestion which he attributed to environmental allergies. Patient had a coughing fit last week during which he felt he hurt his left rib. Patient also admits to diarrhea once daily for the past 4 days. Patient denies any blood in the stool. Patient also complains of 2 weeks of epigastric fullness and pressure. Patient has been eating less due to dental work he is getting. Patient denies any weight loss. Patient decided to go to urgent care today after driving back from [place] (on 05/25 and 05/26) to make sure he did not fracture his rib from his coughing fit last week. In urgent care patient told he had a pleural effusion and to come to the ER. During hospital stay: Patient had a chest CT which showed moderate to large left pleural effusion with localized effusion at the mid and upper portion of the left chest cavity compressing on the left lung. Foci of gas in mid and lower portion of left pleural effusion and possible abscess formation at left lower pleural space or less likely in left lung lower lobe as described above. Compressive atelectasis of left lung more prominent in left lower lobe. Small ground-glass opacities seen in right lung may represent lung edema or congestion. Splenomegaly. Patient was put on Azithromycin 500 mg IVPB daily, Zosyn 3.375 gm IVPB Q8H, Vancomycin 1 gm IVPB Q12H. Blood cultures were negative x2. Mycoplasma IgM positive. IR was consulted.Surgery consulted. Patient underwent thoracotomy with decortication and empyema evacuation. Pleural fluid showed: WBCs 36719 (H), RBCs 601368 (H), Total cell count 100 (H) , Neutrophils 97.0 (H), Lymphocytes 1.0 (H), Monocyte/Macrophage 1 (H), pH 7.0. 05/29 sputum culture grew s. aureus. / tissue cultures grew s. viridans. Pleural fluid culture prelim no growth after 2 days, no fungal elements. Patient was also found to have transaminitis on admission. Hepatitis panel negative, HIV negative. Abdominal ultrasound shows increased echogenicity of the hepatic parenchymal cortex suggestive for fatty infiltration versus hepatic parenchymal disease. prominent liver and spleen as above. limited visualized of the pancreas. Patient is medically optimized for discharge to transitional care unit for continuation of the following antibiotics: Zosyn 3.375 grams IV Q8H for 14 days (stop 06/29/2018) Azithromycin 500 mg PO daily for 10 days (stop 06/14/2018) Please followup with your primary medical doctor within 1-2 weeks. Please return to ED if symptoms return or worsen. - Date & Time of H&P Date of H&P: 05/27/18 Time of H&P: 22:35 Discharge Exam - Additional Findings Additional findings: - Constitutional Appears: Non-toxic, No Acute Distress - Head Exam Head Exam: ATRAUMATIC, NORMOCEPHALIC - Eye Exam Eye Exam: EOMI, Normal appearance - ENT Exam ENT Exam: Mucous Membranes Moist - Neck Exam Neck Exam: Normal Inspection - Respiratory Exam Respiratory Exam: Decreased Breath Sounds (improved), NORMAL BREATHING PATTERN. absent: Rhonchi, Wheezes, Respiratory Distress - Cardiovascular Exam Cardiovascular Exam: REGULAR RHYTHM, +S1, +S2 - GI/Abdominal Exam GI & Abdominal Exam: Soft, Normal Bowel Sounds. absent: Firm, Rigid, Tenderness - Extremities Exam Extremities Exam: Normal Capillary Refill, Normal Inspection. absent: Tenderness - Back Exam Back Exam: NORMAL INSPECTION - Neurological Exam Neurological Exam: Alert, Awake, Oriented x3 - Psychiatric Exam Psychiatric exam: Normal Affect, Normal Mood - Skin Skin Exam: Dry, Intact, Pallor Discharge Plan - Follow Up Plan Condition: FAIR Disposition: REHAB FACILITY/REHAB UNIT Patient education suggested?: Yes Instructions: Heart Healthy Diet, Pneumonia, Adult (DC), Hyponatremia (DC), Peripherally-Inserted Central Catheter (DC), Thoracotomy (DC), Normocytic Normochromic Anemia (DC) Additional Instructions: Patient is medically optimized for discharge to transitional care unit for continuation of the following antibiotics: Zosyn 3.375 grams IV Q8H for 14 days (stop 06/29/2018) Azithromycin 500 mg PO daily for 10 days (stop 06/14/2018) Please followup with your primary medical doctor within 1-2 weeks. Please return to ED if symptoms return or worsen.
--- NOTE | 2018-06-05 23:30 | CP.PCM.PN ---
Subjective - Date & Time of Evaluation Date of Evaluation: 06/05/18 Time of Evaluation: 18:00 - Subjective Subjective: dictated Objective - Vital Signs/Intake and Output Vital Signs (last 24 hours): Temp Pulse Resp BP Pulse Ox 98.1 F 106 H 20 114/71 97 06/05/18 16:00 06/05/18 16:00 06/05/18 16:00 06/05/18 16:00 06/05/18 16:00 Intake and Output: 06/05/18 06/06/18 18:59 06:59 Intake Total 500 Balance 500 - Labs Labs: 06/04/18 06:56 06/04/18 06:56 PT 14.1 SECONDS (9.7-12.2) H 06/04/18 06:56 INR 1.3 06/04/18 06:56 APTT 28 SECONDS (21-34) 05/31/18 06:08
--- NOTE | 2018-06-06 12:02 | PN ---
Copied To: Melody Cruz MD Attending MD: Melody Cruz MD PROCEDURE DATE: 06/05/2018 INFECTIOUS DISEASE FOLLOWUP NOTE SUBJECTIVE: The patient had a PICC line in the right arm. He has been off the chest tube. He was getting respiratory treatment. He did not tell me that he was going to the rehab today, but at the time I am dictating the note, he has already gone now, but he was seen and he was in no respiratory distress. He states that he was trying to breath, but still had difficulty taking deep breath, and I told him he will get better with IV antibiotics. PHYSICAL EXAMINATION: VITAL SIGNS: T-max is 98.1, pulse 91, blood pressure 114/71, respirations were 20. HEENT: Head is atraumatic. NECK: Supple. LUNGS: Had decreased breath sounds bilaterally. HEART: S1 and S2 regular. ABDOMEN: Nontender. No guarding. No rigidity present. EXTREMITIES: Had decreasing edema. LABORATORY DATA: Labs are noted. He has no new labs today. Micro kelly, he did have Staph viridans in the tissue on decortication of the left lung, and he also had a dressing on the left chest wall. His sputum showed Staphylococcus aureus which was not MRSA, and he also had mycoplasma positive. So he has gone on Zosyn and Zithromax as planned and will be getting those in the rehab. The patient came with empyema, and he is status post decortication with mycoplasma positive and pneumonia with Staphylococcus aureus, methicillin-sensitive Staph, and Staph viridans pneumonia, and he is on his way to rehab now. Melody Cruz MD
== END 2018-06-05 21:30 | DRG 163 ==
LOC: C.ER 17:34 → C.9E 22:52 → C.3T 05-28 00:58 → C.6T 05-28 11:22
PROVIDERS: ADMIT Hospitalist; ATTEND Hospitalist
PROC: 30233K1 Transfusion of Nonautologous Frozen Plasma into Peripheral Vein, Percutaneous Approach (ICD-10-PCS; 2018-05-28)
PROC: 0W9B00Z Drainage of Left Pleural Cavity with Drainage Device, Open Approach (ICD-10-PCS; 2018-05-31)
PROC: 0BCL0ZZ Extirpation of Matter from Left Lung, Open Approach (ICD-10-PCS; principal; 2018-05-31 07:45)
PROC: 02HV33Z Insertion of Infusion Device into Superior Vena Cava, Percutaneous Approach (ICD-10-PCS; 2018-06-05)
DX: J15.7 Pneumonia due to Mycoplasma pneumoniae (principal); J86.9 Pyothorax without fistula; D62 Acute posthemorrhagic anemia; E22.2 Syndrome of inappropriate secretion of antidiuretic hormone; J45.901 Unspecified asthma with (acute) exacerbation; J91.8 Pleural effusion in other conditions classified elsewhere; J98.11 Atelectasis; B95.4 Other streptococcus as the cause of diseases classified elsewhere; D63.8 Anemia in other chronic diseases classified elsewhere; E03.9 Hypothyroidism, unspecified; E78.00 Pure hypercholesterolemia, unspecified; E78.5 Hyperlipidemia, unspecified; F31.9 Bipolar disorder, unspecified; G89.18 Other acute postprocedural pain; I10 Essential (primary) hypertension; J43.9 Emphysema, unspecified; I45.81 Long QT syndrome; K59.00 Constipation, unspecified; K64.9 Unspecified hemorrhoids; R79.1 Abnormal coagulation profile; B95.8 Unspecified staphylococcus as the cause of diseases classified elsewhere; Z87.01 Personal history of pneumonia (recurrent); Z87.891 Personal history of nicotine dependence